=== PATIENT | male | born 1935 | race Caucasian/White ===

== ENCOUNTER → 2017-05-25 | Outpatient (CLI) | payer MEDICARE, OTHER ==
--- NOTE | 2017-05-25 10:06 | CT ---
EXAMINATION TYPE: CT image guided sinus DATE OF EXAM: 05/25/2017 COMPARISON: 11/26/2009 HISTORY: 82-year-old male chronic sinusitis, recurrent sinus infections. Patient complains of recurrent sinus infections. CT DLP: 744.4 mGycm Automated exposure control for dose reduction was used. TECHNIQUE: Noncontrast axial views of the paranasal sinuses were obtained. Coronal reconstructions pe rformed. Imaging performed for image guided sinonasal procedure. FINDINGS: Postsurgical changes of prior FESS, bilateral medial maxillary antrectomies. Mild to moderate mucosal thickening throughout the ethmoid air cells and mild within the bilateral ma xillary sinuses, left sphenoid sinus, and bilateral frontal sinuses. Trace air-fluid levels are seen in the maxillary sinuses. Overall degree of mucosal thickening shows improvement from 2009. There is no destruction of the osseous blanco of the paranasal sinuses. The osteomeatal complexes are patent. Minimal leftward nasal septal deviation. Imaged brain shows no gross abnormality. Post resection changes involving the right mastoid air cells , stable from 2009. Partial opacification left mastoid air cells. Orbits and globes are intact. Reformatted images confirm above findings. IMPRESSION: 1. Evidence of prior bilateral medial maxillary antrectomies. 2. Overall degree of trimble sinus mucosal thickening shows improvement from 2009. Residual moderate muco lynne thickening remains in the ethmoid air cells and mild throughout the remaining paranasal sinuses 3. Small air-fluid levels in the bilateral maxillary sinuses could represent superimposed acute sinus itis. 4. Stable post resection changes involving the right mastoid air cells. There is some trapped fluid i n some of the left mastoid air cells. Correlate for any mastoid pain to exclude mastoiditis.
== END | disposition home or self-care (01) ==
LOC: RADCTMAIN 09:07
PROVIDERS: ATTEND Otolaryngology
DX: J34.89 Other specified disorders of nose and nasal sinuses (principal); J32.9 Chronic sinusitis, unspecified; Z98.890 Other specified postprocedural states
CPT/HCPCS: 70486

== ENCOUNTER 2018-03-01 11:15 | Inpatient (IN) | payer MEDICARE, OTHER ==
--- NOTE | 2018-03-01 12:22 | XR ---
EXAMINATION TYPE: XR chest 2V DATE OF EXAM: 03/01/2018 COMPARISON: NONE HISTORY: Shortness of breath TECHNIQUE: Frontal and lateral views of the chest are obtained. FINDINGS: Scattered senescent parenchymal changes noted. Hyperinflation compatible with COPD. No evidence for infiltrate. No evidence for atelectasis. Heart size is stable. Mediastinal structures are stable and grossly unremarkable. No evidence for hilar prominence. Degenerative changes dorsal spine. IMPRESSION: 1. No evidence for acute pulmonary disease.
[2018-03-01 12:37] LABS: Basophils # (A) 0.1 k/uL (0-0.2); Basophils % (A) 0 %; Eosinophils # (A) 0.2 k/uL (0-0.7); Eosinophils % (A) 2 %; HCT 45.2 % (39.0-53.0); HGB 15.5 gm/dL (13.0-17.5); Lymphocytes # (A) 1.7 k/uL (1.0-4.8); Lymphocytes % (A) 15 %; MCH 30.9 pg (25.0-35.0); MCHC 34.3 g/dL (31.0-37.0); Mean Platelet Volume 8.1; Monocytes # (A) 0.8 k/uL (0-1.0); Monocytes % (A) 7 %; Neutrophils # (A) 8.4 k/uL (1.3-7.7); Neutrophils % (A) 75 %; Platelet Count 222 k/uL (150-450); RBC 5.02 m/uL (4.30-5.90); RDW 13.1 % (11.5-15.5); WBC 11.2 k/uL (3.8-10.6)
[2018-03-01 12:43] LABS: Calcium 9.4 mg/dL (8.4-10.2); INR 1.1 (<1.2); Magnesium 1.9 mg/dL (1.6-2.3); Partial Thromboplastin Time 27.5 sec (22.0-30.0); Potassium 4.7 mmol/L (3.5-5.1); Total Bilirubin 1.1 mg/dL (0.2-1.3); Total Protein 6.4 g/dL (6.3-8.2)
[2018-03-01 13:00] LABS: Creatine Kinase 40 U/L (55-170)
[2018-03-01] MEDS ORDERED: DILTIAZEM DRIP BOLUS FROM BAG 1 MG SOLN IV ONE (13:06)
[2018-03-01 13:12] LABS: Troponin I <0.012 ng/mL (0.000-0.034)
[2018-03-01] MEDS: DILTIAZEM 50 MG in SODIUM CHLORIDE 0.9% 40 ML IV SCH ×2 (13:37→20:44)
--- NOTE | 2018-03-01 14:25 | ED ---
Arrhythmia/Palpitations HPI - General Chief Complaint: Arrhythmia/Palpitations Stated Complaint: A Fib Time Seen by Provider: 03/01/18 11:27 Source: patient, RN/MD, RN notes reviewed Mode of arrival: ambulatory Limitations: no limitations - History of Present Illness Initial Comments: This 83-year-old male who presents from his doctor's office with a diagnosis of atrial fibrillation this is new onset for the patient he denies any chest pain shortness breath fevers chills sweats this was found on examination. No other modifying factors this time he states he's never had this before. MD Complaint: palpitations, irregular heart beat, atrial fibrillation - Related Data Home Medications Medication Instructions Recorded Confirmed Fluticasone/Salmeterol [Advair 1 inhalation PO RT-BID 03/31/15 03/01/18 250-50 Diskus] Levothyroxine Sodium [Synthroid] 50 mcg PO DAILY 03/31/15 03/01/18 Lisinopril-Hctz 20-12.5 mg 0.5 tab PO DAILY 03/31/15 03/01/18 [Zestoretic 20-12.5] Metoprolol Succinate (ER) [Toprol 25 mg PO DAILY 03/31/15 03/01/18 Xl] Montelukast [Singulair] 10 mg PO DAILY 03/31/15 03/01/18 Omeprazole [PriLOSEC] 20 mg PO DAILY 03/31/15 03/01/18 Rivaroxaban [Xarelto] 20 mg PO HS 03/31/15 03/01/18 metFORMIN HCL [Glucophage] 1,000 mg PO HS 03/31/15 03/01/18 Amiodarone HCl [Pacerone] 100 mg PO DAILY 03/01/18 03/01/18 Cholecalciferol [Vitamin D3] 1,000 unit PO DAILY 03/01/18 03/01/18 Multivitamins, Thera [Multivitamin 1 tab PO DAILY 03/01/18 03/01/18 (formulary)] [place]-3 Fatty Acids [[place]-3] 1,000 mg PO DAILY 03/01/18 03/01/18 Opti Florecita 1 tab PO DAILY 03/01/18 03/01/18 Oxybutynin Chloride [Ditropan] 10 mg PO DAILY 03/01/18 03/01/18 Ranitidine HCl [Zantac] 150 mg PO DAILY 03/01/18 03/01/18 Sildenafil Citrate [Viagra] 100 mg PO ONCE PRN 03/01/18 03/01/18 Simvastatin [Zocor] 20 mg PO HS 03/01/18 03/01/18 Tamsulosin HCl [Flomax] 0.4 mg PO HS 03/01/18 03/01/18 sitaGLIPtin [Januvia] 1 tab PO DAILY 03/01/18 03/01/18 Allergies Allergy/AdvReac Type Severity Reaction Status Date / Time No Known Allergies Allergy Verified 03/01/18 12:07 Review of Systems ROS Statement: Those systems with pertinent positive or pertinent negative responses have been documented in the HPI. ROS Other: All systems not noted in ROS Statement are negative. Past Medical History Past Medical History: Atrial Fibrillation, Asthma, Diabetes Mellitus, GERD/ Reflux, Hyperlipidemia, Hypertension, Thyroid Disorder Additional Past Medical History / Comment(s): back pain, cataracts History of Any Multi-Drug Resistant Organisms: None Reported Past Surgical History: Back Surgery, Hernia Repair, Orthopedic Surgery Additional Past Surgical History / Comment(s): mastoidectomy, deviated septum Past Psychological History: No Psychological Hx Reported Smoking Status: Former smoker Past Alcohol Use History: Rare Past Drug Use History: None Reported General Exam - General Exam Comments Initial Comments: This is a well-developed well-nourished awake alert oriented 3 male Limitations: no limitations General appearance: alert, in no apparent distress Head exam: Present: atraumatic, normocephalic, normal inspection Eye exam: Present: normal appearance, PERRL, EOMI. Absent: scleral icterus, conjunctival injection, periorbital swelling ENT exam: Present: normal exam, mucous membranes moist Neck exam: Present: normal inspection. Absent: tenderness, meningismus, lymphadenopathy Respiratory exam: Present: normal lung sounds bilaterally. Absent: respiratory distress, wheezes, rales, rhonchi, stridor Cardiovascular Exam: Present: tachycardia, irregular rhythm. Absent: systolic murmur, diastolic murmur, rubs, gallop, clicks GI/Abdominal exam: Present: soft, normal bowel sounds. Absent: distended, tenderness, guarding, rebound, rigid Extremities exam: Present: normal inspection, full ROM, normal capillary refill. Absent: tenderness, pedal edema, joint swelling, calf tenderness Back exam: Present: normal inspection Neurological exam: Present: alert, oriented X3, CN II-XII intact Psychiatric exam: Present: normal affect, normal mood Skin exam: Present: warm, dry, intact, normal color. Absent: rash Course Vital Signs 03/01/18 03/01/18 03/01/18 11:16 12:30 13:34 Temperature 97.7 F 97.7 F Pulse Rate 75 115 H 114 H Respiratory 18 18 18 Rate Blood Pressure 125/73 103/77 109/71 O2 Sat by Pulse 98 97 97 Oximetry 03/01/18 13:59 Temperature Pulse Rate 108 H Respiratory 18 Rate Blood Pressure 103/76 O2 Sat by Pulse 96 Oximetry - Reevaluation(s) Reevaluation #1: 03/01/18 14:27 evaluation patient reveals no changes. He still in atrial fibrillation. I did discuss the findings have and his patient will be admitted. EKG Findings - EKG Results: EKG: interpreted by ERMD (Atrial fibrillation with a rapid ventricular response rate 129 QRS 96 QT since QTC 310/454 incomplete right bundle-branch block nonspecific ST-T wave configuration) Medical Decision Making - Medical Decision Making I did review the findings with the patient he will be admitted I did discuss the case with Dr. Antoine. Cardiology will be consulted. I did previously discuss the case with Dr. Smith - Lab Data Result diagrams: 03/01/18 11:43 03/01/18 11:43 Lab Results 03/01/18 03/01/18 03/01/18 Range/Units 11:43 11:43 11:43 WBC 11.2 H (3.8-10.6) k/uL RBC 5.02 (4.30-5.90) m/uL Hgb 15.5 (13.0-17.5) gm/dL Hct 45.2 (39.0-53.0) % MCV 90.0 (80.0-100.0) fL MCH 30.9 (25.0-35.0) pg MCHC 34.3 (31.0-37.0) g/dL RDW 13.1 (11.5-15.5) % Plt Count 222 (150-450) k/uL Neutrophils % 75 % Lymphocytes % 15 % Monocytes % 7 % Eosinophils % 2 % Basophils % 0 % Neutrophils # 8.4 H (1.3-7.7) k/uL Lymphocytes # 1.7 (1.0-4.8) k/uL Monocytes # 0.8 (0-1.0) k/uL Eosinophils # 0.2 (0-0.7) k/uL Basophils # 0.1 (0-0.2) k/uL PT (9.0-12.0) sec INR (<1.2) APTT (22.0-30.0) sec Sodium 136 L (137-145) mmol/L Potassium 4.7 (3.5-5.1) mmol/L Chloride 104 (98-107) mmol/L Carbon Dioxide 22 (22-30) mmol/L Anion Gap 10 mmol/L BUN 16 (9-20) mg/dL Creatinine 1.12 (0.66-1.25) mg/dL Est GFR (CKD-EPI)AfAm 71 (>60 ml/min/1.73 sqM) Est GFR (CKD-EPI)NonAf 62 (>60 ml/min/1.73 sqM) Glucose 93 (74-99) mg/dL Calcium 9.4 (8.4-10.2) mg/dL Magnesium 1.9 (1.6-2.3) mg/dL Total Bilirubin 1.1 (0.2-1.3) mg/dL AST 19 (17-59) U/L ALT 32 (21-72) U/L Alkaline Phosphatase 50 (38-126) U/L Total Creatine Kinase 40 L (55-170) U/L CK-MB (CK-2) 1.0 (0.0-2.4) ng/mL CK-MB (CK-2) Rel Index 2.5 Troponin I <0.012 (0.000-0.034) ng/mL Total Protein 6.4 (6.3-8.2) g/dL Albumin 4.0 (3.5-5.0) g/dL TSH 5.810 H (0.465-4.680) mIU/L 03/01/18 Range/Units 11:43 WBC (3.8-10.6) k/uL RBC (4.30-5.90) m/uL Hgb (13.0-17.5) gm/dL Hct (39.0-53.0) % MCV (80.0-100.0) fL MCH (25.0-35.0) pg MCHC (31.0-37.0) g/dL RDW (11.5-15.5) % Plt Count (150-450) k/uL Neutrophils % % Lymphocytes % % Monocytes % % Eosinophils % % Basophils % % Neutrophils # (1.3-7.7) k/uL Lymphocytes # (1.0-4.8) k/uL Monocytes # (0-1.0) k/uL Eosinophils # (0-0.7) k/uL Basophils # (0-0.2) k/uL PT 11.0 (9.0-12.0) sec INR 1.1 (<1.2) APTT 27.5 (22.0-30.0) sec Sodium (137-145) mmol/L Potassium (3.5-5.1) mmol/L Chloride (98-107) mmol/L Carbon Dioxide (22-30) mmol/L Anion Gap mmol/L BUN (9-20) mg/dL Creatinine (0.66-1.25) mg/dL Est GFR (CKD-EPI)AfAm (>60 ml/min/1.73 sqM) Est GFR (CKD-EPI)NonAf (>60 ml/min/1.73 sqM) Glucose (74-99) mg/dL Calcium (8.4-10.2) mg/dL Magnesium (1.6-2.3) mg/dL Total Bilirubin (0.2-1.3) mg/dL AST (17-59) U/L ALT (21-72) U/L Alkaline Phosphatase (38-126) U/L Total Creatine Kinase (55-170) U/L CK-MB (CK-2) (0.0-2.4) ng/mL CK-MB (CK-2) Rel Index Troponin I (0.000-0.034) ng/mL Total Protein (6.3-8.2) g/dL Albumin (3.5-5.0) g/dL TSH (0.465-4.680) mIU/L - Radiology Data Radiology results: report reviewed (Imaging shows no acute findings.), image reviewed Critical Care Time Critical Care Time: Yes Critical Care Time: 31 minutes of critical care time which includes initial presentation with history physical labs x-rays several reevaluation the patient discussion the patient and regarding findings discussed with the admitting physician admission orders and documentation the above Disposition Clinical Impression: Rapid atrial fibrillation Disposition: ADMITTED IP TO THIS HOSP Condition: Stable Referrals: Radha Smith DO [Primary Care Provider] - 1-2 days
[2018-03-01] MEDS ORDERED: NALOXONE 0.4 MG/ML 1 ML VIAL IV PRN (14:30)
--- NOTE | 2018-03-01 15:54 | P.HPIM ---
History of Present Illness H&P Date: 03/01/18 Chief Complaint: Heart palpitations This is a 83-year-old male, patient of Dr. Smith. Patient has a known past medical history of atrial fibrillation anticoagulated with Xarelto. He also has a history of diabetes mellitus, hypothyroidism, hyperlipidemia, hypertension and asthma. Patient reports about 2 weeks ago when he was visiting his son in [place] he had to go into the hospital therefore atrial fibrillation with rapid ventricular response and did undergo a cardioversion at that time. Patient's reports that symptoms started yesterday he was having difficulty calculating his pulse. He reports that he did not miss any medications doses of his amiodarone or Toprol. Patient was sent by his PCP due to atrial fibrillation with rapid ventricular response. EKG in the ER did reveal evidence of atrial fibrillation with a heart rate of 129 and incomplete right bundle branch block. Patient started on Cardizem drip in the ER. They continued the Xarelto 20 mg at bedtime. Cardiology has been placed on consult. He denies any chest pain, shortness of breath, dizziness, lightheadedness, nausea or vomiting, fatigue, fever, chills or sweats. Denies any bowel movement changes or urinary symptoms. Review of Systems Please refer to HPI otherwise unremarkable Past Medical History Past Medical History: Atrial Fibrillation, Asthma, Diabetes Mellitus, GERD/ Reflux, Hyperlipidemia, Hypertension, Pneumonia, Prostate Disorder, Thyroid Disorder Additional Past Medical History / Comment(s): back pain, cataracts(sx done has lens implants), bronchitis,hx of lt wrist fx-no sx just casted.glaucoma lt eye, past stroke behind rt eye stated i can see but i have a blotch in the middle of my vision", past deviated septum and chronic sinusitis-(sx done) History of Any Multi-Drug Resistant Organisms: None Reported Past Surgical History: Adenoidectomy, Back Surgery, Hernia Repair, Orthopedic Surgery, Tonsillectomy Additional Past Surgical History / Comment(s): mastoidectomy rt ear,septoplasty , turp, sandee cataracts-lens implants, colonoscopy, vasectomy, cardiversion (nov when in [place]-for afib), lt thumb trigger finger sx, rt thumb 2nd, 3rd finger trigger finger sx. Past Anesthesia/Blood Transfusion Reactions: No Reported Reaction Past Psychological History: No Psychological Hx Reported Additional Psychological History / Comment(s): lives with .pt is independant served in the [employer], has worked for an [email or web address], [employer], and a [employer] Smoking Status: Former smoker Past Alcohol Use History: Rare Past Drug Use History: None Reported Medications and Allergies Home Medications Medication Instructions Recorded Confirmed Type Fluticasone/Salmeterol [Advair 1 inhalation PO RT-BID 03/31/15 03/01/18 History 250-50 Diskus] Levothyroxine Sodium [Synthroid] 50 mcg PO DAILY 03/31/15 03/01/18 History Lisinopril-Hctz 20-12.5 mg 0.5 tab PO DAILY 03/31/15 03/01/18 History [Zestoretic 20-12.5] Metoprolol Succinate (ER) [Toprol 25 mg PO DAILY 03/31/15 03/01/18 History Xl] Montelukast [Singulair] 10 mg PO DAILY 03/31/15 03/01/18 History Omeprazole [PriLOSEC] 20 mg PO DAILY 03/31/15 03/01/18 History Rivaroxaban [Xarelto] 20 mg PO HS 03/31/15 03/01/18 History metFORMIN HCL [Glucophage] 1,000 mg PO HS 03/31/15 03/01/18 History Amiodarone HCl [Pacerone] 100 mg PO DAILY 03/01/18 03/01/18 History Cholecalciferol [Vitamin D3] 1,000 unit PO DAILY 03/01/18 03/01/18 History Multivitamins, Thera [Multivitamin 1 tab PO DAILY 03/01/18 03/01/18 History (formulary)] [place]-3 Fatty Acids [[place]-3] 1,000 mg PO DAILY 03/01/18 03/01/18 History Opti Florecita 1 tab PO DAILY 03/01/18 03/01/18 History Oxybutynin Chloride [Ditropan] 10 mg PO DAILY 03/01/18 03/01/18 History Ranitidine HCl [Zantac] 150 mg PO DAILY 03/01/18 03/01/18 History Sildenafil Citrate [Viagra] 100 mg PO ONCE PRN 03/01/18 03/01/18 History Simvastatin [Zocor] 20 mg PO HS 03/01/18 03/01/18 History Tamsulosin HCl [Flomax] 0.4 mg PO HS 03/01/18 03/01/18 History sitaGLIPtin [Januvia] 1 tab PO DAILY 03/01/18 03/01/18 History Allergies Allergy/AdvReac Type Severity Reaction Status Date / Time No Known Allergies Allergy Verified 03/01/18 12:07 Physical Exam Vitals: Vital Signs Temp Pulse Resp BP Pulse Ox 03/01/18 15:09 98.3 F 112 H 18 120/76 96 03/01/18 13:59 108 H 18 103/76 96 03/01/18 13:34 97.7 F 114 H 18 109/71 97 03/01/18 12:30 115 H 18 103/77 97 03/01/18 11:16 97.7 F 75 18 125/73 98 Intake and Output 03/01/18 03/01/18 03/01/18 06:59 14:59 22:59 Other: Weight 90.718 kg Head normocephalic Neck supple Lungs clear to auscultation bilaterally no wheezing or crackles Heart irregular. A. fib on monitor Abdomen is soft nontender nondistended positive bowel sounds no hepatosplenomegaly Extremities no edema Neuro alert and orientated to 3 Results CBC & Chem 7: 03/01/18 11:43 03/01/18 11:43 Labs: Abnormal Lab Results - Last 24 Hours (Table) 03/01/18 03/01/18 03/01/18 Range/Units 11:43 11:43 11:43 WBC 11.2 H (3.8-10.6) k/uL Neutrophils # 8.4 H (1.3-7.7) k/uL Sodium 136 L (137-145) mmol/L Total Creatine Kinase 40 L (55-170) U/L TSH 5.810 H (0.465-4.680) mIU/L Assessment and Plan Assessment: 1. Atrial fibrillation with rapid ventricular response present on admission: Patient started on Cardizem drip in ER. Continue Xarelto for anticoagulation. Consult cardiology. Continue telemetry monitoring. Patient's metoprolol and amiodarone were resumed. Patient has a history of atrial fibrillation with recent cardioversion about 2 weeks ago in [place] 2. Hypothyroidism: TSH elevated at 5.810 we'll increase Synthroid from 50 g to 75 g daily 3. Diabetes mellitus type 2: resume metformin and tradjenta. add sliding scale coverage 4. History of mild intermittent asthma. No evidence of exacerbation 5. Essential hypertension 6. GERD continue Pepcid 7. Hyperlipidemia continue statin 8. Leukocytosis possibly reactive. Repeat CBC in a.m. Chest x-ray negative. GI prophylaxis Pepcid and DVT prophylaxis Xarelto Time with Patient: Greater than 30 (Greater than 50% of the total time spent in counseling and coordination of care.I performed an examination of the patient and discussed their management with the physician Heel Seat Filler. I have reviewed the Physician Heel Seat Filler's notes and agree with the documented findings and plan of care)
[2018-03-01 16:54] LABS: Glucose,Whole Blood 184 mg/dL (75-99)
[2018-03-01] MEDS: SODIUM CHLORIDE 0.9% 1,000 ML IV SCH (17:13)
[2018-03-01] MEDS: INSULIN ASPART 100 UNIT/ML 1 ML 10 ML VIAL SQ SCH ×2 (17:37→21:04)
[2018-03-01] MEDS ORDERED: INFLUENZA VACCINE (6 MOS+) 60 MCG/0.5 ML SYRINGE IM ONE (18:37)
[2018-03-01] MEDS: SYMBICORT 80-4.5 MCG INHALER INHALATION SCH (20:35)
[2018-03-01] MEDS: ATORVASTATIN 10 MG TAB PO SCH (20:38)
[2018-03-01] MEDS: metFORMIN 500 MG TAB PO SCH (20:38)
[2018-03-01] MEDS: TAMSULOSIN 0.4 MG CAP.ER.24H PO SCH (20:38)
[2018-03-01] MEDS: RIVAROXABAN 20 MG TAB PO SCH (21:04)
[2018-03-01 21:26] LABS: Glucose,Whole Blood 141 mg/dL (75-99)
[2018-03-02 06:03] LABS: Glucose,Whole Blood 117 mg/dL (75-99)
[2018-03-02] MEDS: INSULIN ASPART 100 UNIT/ML 1 ML 10 ML VIAL SQ SCH ×4 (06:12→20:41)
[2018-03-02] MEDS: PANTOPRAZOLE 40 MG TABLET PO SCH (06:17)
[2018-03-02] MEDS: LEVOTHYROXINE 75 MCG TAB PO SCH (06:17)
[2018-03-02] MEDS: DILTIAZEM 50 MG in SODIUM CHLORIDE 0.9% 40 ML IV SCH ×2 (06:18→16:20)
[2018-03-02] MEDS ORDERED: LEVOTHYROXINE 50 MCG TAB PO SCH (06:30)
[2018-03-02 06:32] LABS: Basophils # (A) 0.1 k/uL (0-0.2); Basophils % (A) 1 %; Eosinophils # (A) 0.2 k/uL (0-0.7); Eosinophils % (A) 2 %; HCT 39.3 % (39.0-53.0); HGB 13.1 gm/dL (13.0-17.5); Lymphocytes # (A) 1.8 k/uL (1.0-4.8); Lymphocytes % (A) 24 %; MCH 30.3 pg (25.0-35.0); MCHC 33.3 g/dL (31.0-37.0); MCV 91.2 fL (80.0-100.0); Mean Platelet Volume 7.6; Monocytes # (A) 0.6 k/uL (0-1.0); Monocytes % (A) 8 %; Neutrophils # (A) 4.8 k/uL (1.3-7.7); Neutrophils % (A) 64 %; Platelet Count 191 k/uL (150-450); RBC 4.31 m/uL (4.30-5.90); RDW 13.2 % (11.5-15.5); WBC 7.5 k/uL (3.8-10.6)
[2018-03-02 06:44] LABS: Calcium 8.5 mg/dL (8.4-10.2); Potassium 4.2 mmol/L (3.5-5.1); Total Protein 5.2 g/dL (6.3-8.2)
[2018-03-02] MEDS: CHOLECALCIFEROL 1,000 UNIT TAB PO SCH (08:32)
[2018-03-02] MEDS: AMIODARONE 100 MG TAB PO SCH (08:32)
[2018-03-02] MEDS: FAMOTIDINE 20 MG TAB PO SCH (08:32)
[2018-03-02] MEDS: METOPROLOL SUCCINATE (ER) 25 MG TAB.ER.24H PO SCH (08:33)
[2018-03-02] MEDS: LINAGLIPTIN 5 MG TABLET PO SCH (08:33)
[2018-03-02] MEDS: LISINOPRIL-HCTZ 20-12.5 MG 1 EACH TAB PO SCH (08:33)
[2018-03-02] MEDS: OXYBUTYNIN CHLORIDE 5 MG TAB PO SCH (08:34)
[2018-03-02] MEDS: MONTELUKAST 10 MG TAB PO SCH (08:34)
[2018-03-02] MEDS: MULTIVITAMINS, THERA 1 EACH TAB PO SCH (08:34)
[2018-03-02] MEDS ORDERED: NON-FORMULARY DRUG (Omega-3 Fatty Acids [Omega-3] 1,000 MG) PO SCH (09:00)
[2018-03-02] MEDS: SYMBICORT 80-4.5 MCG INHALER INHALATION SCH ×2 (09:05→20:38)
--- NOTE | 2018-03-02 10:39 | P.PN ---
Subjective Progress Note Date: 03/02/18 This is a 83-year-old male, patient of Dr. Smith. Patient has a known past medical history of atrial fibrillation anticoagulated with Xarelto. He also has a history of diabetes mellitus, hypothyroidism, hyperlipidemia, hypertension and asthma. Patient reports about 2 weeks ago when he was visiting his son in [place] he had to go into the hospital therefore atrial fibrillation with rapid ventricular response and did undergo a cardioversion at that time. Patient's reports that symptoms started yesterday he was having difficulty calculating his pulse. He reports that he did not miss any medications doses of his amiodarone or Toprol. Patient was sent by his PCP due to atrial fibrillation with rapid ventricular response. EKG in the ER did reveal evidence of atrial fibrillation with a heart rate of 129 and incomplete right bundle branch block. Patient started on Cardizem drip in the ER. They continued the Xarelto 20 mg at bedtime. Cardiology has been placed on consult. He denies any chest pain, shortness of breath, dizziness, lightheadedness, nausea or vomiting, fatigue, fever, chills or sweats. Denies any bowel movement changes or urinary symptoms. On 03/02/2018 patient is currently resting comfortably in bed. is at bedside. Patient remains on Cardizem drip. Heart rate remains elevated in the low 100s. Cardiology services are following. At this time patient denies chest pain or shortness of breath. Patient denies nausea vomiting or diarrhea. Patient denies any urinary burning or frequency. Objective - Vital Signs Vital signs: Vital Signs Temp 98.0 F 03/02/18 08:25 Pulse 101 H 03/02/18 08:25 Resp 16 03/02/18 08:25 BP 121/62 03/02/18 08:25 Pulse Ox 96 03/02/18 08:25 Intake & Output 03/01/18 03/02/18 03/02/18 18:59 06:59 18:59 Intake Total 25 83.416 240 Output Total 900 Balance 25 -816.584 240 Weight 90.718 kg 91.4 kg Intake: Intake, IV Titration 25 83.416 Amount Diltiazem 50 mg In Sodium 5 83.416 Chloride 0.9% 40 ml @ 5 MG/HR 5 mls/hr IV .Q10H [facility] Rx#:[id number] Sodium Chloride 0.9% 1, 20 000 ml @ 20 mls/hr IV . Q24H [facility] Rx#:[id number] Oral 240 Output: Urine 900 Other: Voiding Method Urinal # Voids 1 - Exam Head normocephalic Neck supple Lungs clear to auscultation bilaterally no wheezing or crackles Heart irregular. A. fib on monitor Abdomen is soft nontender nondistended positive bowel sounds no hepatosplenomegaly Extremities no edema Neuro alert and orientated to 3 - Labs CBC & Chem 7: 03/02/18 06:10 03/02/18 06:10 Labs: Abnormal Lab Results - Last 24 Hours (Table) 03/01/18 03/01/18 03/01/18 Range/Units 11:43 11:43 11:43 WBC 11.2 H (3.8-10.6) k/uL Neutrophils # 8.4 H (1.3-7.7) k/uL Sodium 136 L (137-145) mmol/L Glucose (74-99) mg/dL POC Glucose (mg/dL) (75-99) mg/dL AST (17-59) U/L Total Creatine Kinase 40 L (55-170) U/L Total Protein (6.3-8.2) g/dL Albumin (3.5-5.0) g/dL TSH 5.810 H (0.465-4.680) mIU/L 03/01/18 03/01/18 03/02/18 Range/Units 16:35 20:58 06:02 WBC (3.8-10.6) k/uL Neutrophils # (1.3-7.7) k/uL Sodium (137-145) mmol/L Glucose (74-99) mg/dL POC Glucose (mg/dL) 184 H 141 H 117 H (75-99) mg/dL AST (17-59) U/L Total Creatine Kinase (55-170) U/L Total Protein (6.3-8.2) g/dL Albumin (3.5-5.0) g/dL TSH (0.465-4.680) mIU/L 03/02/18 Range/Units 06:10 WBC (3.8-10.6) k/uL Neutrophils # (1.3-7.7) k/uL Sodium (137-145) mmol/L Glucose 122 H (74-99) mg/dL POC Glucose (mg/dL) (75-99) mg/dL AST 14 L (17-59) U/L Total Creatine Kinase (55-170) U/L Total Protein 5.2 L (6.3-8.2) g/dL Albumin 3.0 L (3.5-5.0) g/dL TSH (0.465-4.680) mIU/L Assessment and Plan Assessment: 1. Atrial fibrillation with rapid ventricular response present on admission: Patient started on Cardizem drip in ER. Continue Xarelto for anticoagulation. Consult cardiology. Continue telemetry monitoring. Patient's metoprolol and amiodarone were resumed. Patient has a history of atrial fibrillation with recent cardioversion about 2 weeks ago in [place]. Awaiting cardiology input. Patient remains on Cardizem drip for rate control at this time 2. Hypothyroidism: TSH elevated at 5.810 we'll increase Synthroid from 50 g to 75 g daily 3. Diabetes mellitus type 2: resume metformin and tradjenta. add sliding scale coverage 4. History of mild intermittent asthma. No evidence of exacerbation 5. Essential hypertension 6. GERD continue Pepcid 7. Hyperlipidemia continue statin 8. Leukocytosis possibly reactive. Repeat CBC in a.m. Chest x-ray negative. White blood cell improving to 7.5. GI prophylaxis Pepcid and DVT prophylaxis Xarelto I performed an examination of the patient and discussed their management with the Nurse Practitioner. I have reviewed the Nurse Practitioner's notes and agree with the documented findings and plan of care
--- NOTE | 2018-03-02 11:20 | P.CRDCN ---
History of Present Illness Consult date: 03/02/18 Requesting physician: Hyun Antoine Consult reason: atrial fibrillation Chief complaint: Palpitations, atrial fibrillation History of present illness: This is a pleasant 83-year-old gentleman with history of hypertension , diabetes, hyperlipidemia, hypothyroidism, paroxysmal atrial fibrillation, who was first diagnosed with A. fib approximately 5 years ago, he was in [place] at that time. He has had 2 subsequent bouts of atrial fibrillation, one time converted with medication, and most recently the patient was in [place] and [place] in January, while in [place] he went into atrial fibrillation with rapid ventricular response. According to the patient, they gave him some medication to try to convert him which was ineffective and subsequently he underwent cardioversion. He has remained in normal sinus rhythm until this time. Patient again felt symptoms of heart racing and palpitations, he went to see his primary care doctor and was recommended to come to the emergency room. EKG on arrival here showed atrial fibrillation with a rapid ventricular response , incomplete right bundle branch block pattern and nonspecific ST-T wave changes. Chest x-ray did not reveal any acute pulmonary disease. Blood pressure on arrival 125/70, heart rate in the low 100s. 98% on room air. Blood pressure this morning 120/60 with a heart rate in the low 100s, 96% on room air. White blood cell count 11.2 on arrival, 7.5 this morning, hemoglobin 13.1 this morning, 15.5 on admission. Platelet count 191. Sodium 137, potassium 4.2, BUN 13, creatinine 1.1. Magnesium 1.9. AST 40, ALT 30. Troponin 0.012. According to the patient, he did have an echocardiogram with Doppler study performed at [facility] yesterday. At the time of my examination this morning, the patient continues to be in atrial fibrillation his heart rate in the low 100s. He is currently on a Cardizem drip. Past Medical History Past Medical History: Atrial Fibrillation, Asthma, Diabetes Mellitus, GERD/ Reflux, Hyperlipidemia, Hypertension, Pneumonia, Prostate Disorder, Thyroid Disorder Additional Past Medical History / Comment(s): back pain, cataracts(sx done has lens implants), bronchitis,hx of lt wrist fx-no sx just casted.glaucoma lt eye, past stroke behind rt eye stated i can see but i have a blotch in the middle of my vision", past deviated septum and chronic sinusitis-(sx done) History of Any Multi-Drug Resistant Organisms: None Reported Past Surgical History: Adenoidectomy, Back Surgery, Hernia Repair, Orthopedic Surgery, Tonsillectomy Additional Past Surgical History / Comment(s): mastoidectomy rt ear,septoplasty , turp, sandee cataracts-lens implants, colonoscopy, vasectomy, cardiversion (nov when in [place]-for afib), lt thumb trigger finger sx, rt thumb 2nd, 3rd finger trigger finger sx. Past Anesthesia/Blood Transfusion Reactions: No Reported Reaction Past Psychological History: No Psychological Hx Reported Additional Psychological History / Comment(s): lives with .pt is independant served in the [employer], has worked for [employer], [employer], and a [employer] Smoking Status: Former smoker Past Alcohol Use History: Rare Past Drug Use History: None Reported Medications and Allergies Home Medications Medication Instructions Recorded Confirmed Type Fluticasone/Salmeterol [Advair 1 inhalation PO RT-BID 03/31/15 03/01/18 History 250-50 Diskus] Levothyroxine Sodium [Synthroid] 50 mcg PO DAILY 03/31/15 03/01/18 History Lisinopril-Hctz 20-12.5 mg 0.5 tab PO DAILY 03/31/15 03/01/18 History [Zestoretic 20-12.5] Metoprolol Succinate (ER) [Toprol 25 mg PO DAILY 03/31/15 03/01/18 History Xl] Montelukast [Singulair] 10 mg PO DAILY 03/31/15 03/01/18 History Omeprazole [PriLOSEC] 20 mg PO DAILY 03/31/15 03/01/18 History Rivaroxaban [Xarelto] 20 mg PO HS 03/31/15 03/01/18 History metFORMIN HCL [Glucophage] 1,000 mg PO HS 03/31/15 03/01/18 History Amiodarone HCl [Pacerone] 100 mg PO DAILY 03/01/18 03/01/18 History Cholecalciferol [Vitamin D3] 1,000 unit PO DAILY 03/01/18 03/01/18 History Multivitamins, Thera [Multivitamin 1 tab PO DAILY 03/01/18 03/01/18 History (formulary)] Nelson-3 Fatty Acids [Nelson-3] 1,000 mg PO DAILY 03/01/18 03/01/18 History Opti Florecita 1 tab PO DAILY 03/01/18 03/01/18 History Oxybutynin Chloride [Ditropan] 10 mg PO DAILY 03/01/18 03/01/18 History Ranitidine HCl [Zantac] 150 mg PO DAILY 03/01/18 03/01/18 History Sildenafil Citrate [Viagra] 100 mg PO ONCE PRN 03/01/18 03/01/18 History Simvastatin [Zocor] 20 mg PO HS 03/01/18 03/01/18 History Tamsulosin HCl [Flomax] 0.4 mg PO HS 03/01/18 03/01/18 History sitaGLIPtin [Januvia] 1 tab PO DAILY 03/01/18 03/01/18 History Allergies Allergy/AdvReac Type Severity Reaction Status Date / Time No Known Allergies Allergy Verified 03/01/18 12:07 Physical Exam Vitals: Vital Signs Temp Pulse Pulse Resp BP BP Pulse Ox 03/02/18 08:25 98.0 F 101 H 16 121/62 96 03/02/18 03:16 104 H 16 03/02/18 03:15 97.4 F L 104 H 16 105/65 95 03/01/18 23:52 102 H 16 03/01/18 23:50 97.0 F L 102 H 16 103/65 97 03/01/18 20:00 97.3 F L 83 18 141/71 96 03/01/18 16:00 118 H 18 03/01/18 15:10 96.8 F L 118 H 18 116/73 95 03/01/18 15:09 98.3 F 112 H 18 120/76 96 03/01/18 13:59 108 H 18 103/76 96 03/01/18 13:34 97.7 F 114 H 18 109/71 97 03/01/18 12:30 115 H 18 103/77 97 03/01/18 11:16 97.7 F 75 18 125/73 98 Intake and Output 03/01/18 03/02/18 03/02/18 22:59 06:59 14:59 Intake Total 60.583 47.833 240 Output Total 900 Balance 60.583 -852.167 240 Intake: Intake, IV Titration 60.583 47.833 Amount Diltiazem 50 mg In Sodium 40.583 47.833 Chloride 0.9% 40 ml @ 5 MG/HR 5 mls/hr IV .Q10H [facility] Rx#:[id number] Sodium Chloride 0.9% 1, 20 000 ml @ 20 mls/hr IV . Q24H [facility] Rx#:[id number] Oral 240 Output: Urine 900 Other: Voiding Method Urinal Urinal # Voids 1 Weight 91.4 kg PHYSICAL EXAMINATION: GENERAL: 83-year-old gentleman in no acute distress at time of my examination HEENT: Head is atraumatic, normocephalic. Pupils equal, round. Sclera anicteric. Conjunctiva are clear. Mucous membranes of the mouth are moist. Neck is supple. There is no elevated jugular venous pressure. No carotid bruit is heard. HEART EXAMINATION: Heart S1 and S2 irregularly irregular a systolic murmur is heard. CHEST EXAMINATION: Lungs are clear to auscultation and precussion. No chest wall tenderness is noted on palpation or with deep breathing. ABDOMEN: Soft, nontender. Bowel sounds are heard. No organomegaly noted. EXTREMITIES: 2+ peripheral pulses with no evidence of peripheral edema and no calf tenderness noted. NEUROLOGIC patient is awake, alert and oriented X3. . Results 03/02/18 06:10 03/02/18 06:10 Cardiac Enzymes 03/01/18 03/01/18 03/02/18 Range/Units 11:43 11:43 06:10 AST 19 14 L (17-59) U/L CK-MB (CK-2) 1.0 (0.0-2.4) ng/mL Troponin I <0.012 (0.000-0.034) ng/mL Coagulation 03/01/18 Range/Units 11:43 PT 11.0 (9.0-12.0) sec APTT 27.5 (22.0-30.0) sec CBC 03/01/18 03/02/18 Range/Units 11:43 06:10 WBC 11.2 H 7.5 (3.8-10.6) k/uL RBC 5.02 4.31 (4.30-5.90) m/uL Hgb 15.5 13.1 (13.0-17.5) gm/dL Hct 45.2 39.3 (39.0-53.0) % Plt Count 222 191 (150-450) k/uL Comprehensive Metabolic Panel 03/01/18 03/02/18 Range/Units 11:43 06:10 Sodium 136 L 137 (137-145) mmol/L Potassium 4.7 4.2 (3.5-5.1) mmol/L Chloride 104 107 (98-107) mmol/L Carbon Dioxide 22 24 (22-30) mmol/L BUN 16 13 (9-20) mg/dL Creatinine 1.12 1.14 (0.66-1.25) mg/dL Glucose 93 122 H (74-99) mg/dL Calcium 9.4 8.5 (8.4-10.2) mg/dL AST 19 14 L (17-59) U/L ALT 32 30 (21-72) U/L Alkaline Phosphatase 50 41 (38-126) U/L Total Protein 6.4 5.2 L (6.3-8.2) g/dL Albumin 4.0 3.0 L (3.5-5.0) g/dL Current Medications Generic Name Dose Route Start Last Admin Trade Name Freq PRN Reason Stop Dose Admin Amiodarone HCl 100 mg 03/02/18 09:00 03/02/18 08:32 Cordarone PO 100 mg DAILY [facility]I Administration Atorvastatin Calcium 10 mg 03/01/18 21:00 03/01/18 20:38 Lipitor PO 10 mg HS [facility]I Administration Budesonide/Formoterol Fumarate 2 puff 03/01/18 20:00 03/02/18 09:05 Symbicort 80-4.5 Mcg Inhaler INHALATION 2 puff RT-BID [facility]I Administration Cholecalciferol 1,000 unit 03/02/18 09:00 03/02/18 08:32 Vitamin D3 PO 1,000 unit DAILY [facility] Administration Famotidine 20 mg 03/02/18 09:00 03/02/18 08:32 Pepcid PO 20 mg DAILY [facility] Administration Lisinopril/HCTZ 0.5 each 03/02/18 09:00 03/02/18 08:33 Zestoretic 20-12.5 PO 0.5 each DAILY [facility]I Administration Diltiazem HCl 50 mg/ Sodium 50 mls @ 5 mls/hr 03/01/18 13:30 03/02/18 06:18 Chloride IV 5 mg/hr .Q10H [facility]I 5 mls/hr Administration 5 MG/HR Sodium Chloride 1,000 mls @ 20 mls/hr 03/01/18 14:30 03/01/18 17:13 Saline 0.9% IV Not Given .Q24H [facility] Insulin Aspart 0 unit 03/01/18 17:30 03/02/18 06:12 Novolog SQ Not Given ACHS [facility] Protocol Levothyroxine Sodium 75 mcg 03/02/18 06:30 03/02/18 06:17 Synthroid PO 75 mcg 0630 [facility] Administration Linagliptin 5 mg 03/02/18 09:00 03/02/18 08:33 Tradjenta PO 5 mg DAILY [facility] Administration Metformin HCl 1,000 mg 03/01/18 21:00 03/01/18 20:38 Glucophage PO 1,000 mg HS [facility] Administration Metoprolol Succinate 25 mg 03/02/18 09:00 03/02/18 08:33 Toprol Xl PO 25 mg DAILY [facility] Administration Montelukast Sodium 10 mg 03/02/18 09:00 03/02/18 08:34 Singulair PO 10 mg DAILY [facility] Administration Multivitamins 1 each 03/02/18 09:00 03/02/18 08:34 Theragran PO 1 each DAILY [facility]I Administration Naloxone HCl 0.2 mg 03/01/18 14:30 Narcan IV Q2M PRN Opioid Reversal Oxybutynin Chloride 10 mg 03/02/18 09:00 03/02/18 08:34 Ditropan PO 10 mg DAILY [facility]I Administration Pantoprazole Sodium 40 mg 03/02/18 07:30 03/02/18 06:17 Protonix PO 40 mg AC-[id number] [facility]I Administration Rivaroxaban 20 mg 03/01/18 21:00 03/01/18 21:04 Xarelto PO 20 mg HS [facility]I Administration Tamsulosin HCl 0.4 mg 03/01/18 21:00 03/01/18 20:38 Flomax PO 0.4 mg HS [facility]I Administration Intake and Output 03/01/18 03/02/18 03/02/18 22:59 06:59 14:59 Intake Total 60.583 47.833 240 Output Total 900 Balance 60.583 -852.167 240 Intake: Intake, IV Titration 60.583 47.833 Amount Diltiazem 50 mg In Sodium 40.583 47.833 Chloride 0.9% 40 ml @ 5 MG/HR 5 mls/hr IV .Q10H [facility] Rx#:[id number] Sodium Chloride 0.9% 1, 20 000 ml @ 20 mls/hr IV . Q24H [facility] Rx#:[id number] Oral 240 Output: Urine 900 Other: Voiding Method Urinal Urinal # Voids 1 Weight 91.4 kg 03/02/18 06:10 03/02/18 06:10 EKG Interpretations (text) EKG shows atrial fibrillation with moderately rapid ventricular response. Assessment and Plan Plan: Assessment and plan #1 atrial fibrillation with rapid ventricular response, paroxysmal, patient has known history of paroxysmal atrial fibrillation in the past., TSH level V.8 #2 diabetes #3 hypertension #4 hyperlipidemia #5 GERD #6 hypothyroidism Plan We will obtain an echocardiogram with Doppler study. Continue Xarelto 20 mg daily. We will request a consultation with Dr. Perrin, possible Tykosin loading. Further recommendations to follow. DNP note has been reviewed, I agree with a documented findings and plan of care. Patient was seen and examined.
[2018-03-02 11:42] LABS: Glucose,Whole Blood 123 mg/dL (75-99)
[2018-03-02 14:07] LABS: Hemoglobin A1C 7.5 % (4.0-6.0)
--- NOTE | 2018-03-02 15:02 | ECHOF ---
Referral Reason:afib MEASUREMENTS -------- HEIGHT: 180.3 cm WEIGHT: 91.2 kg BP: 121/62 RVIDd: 3.4 cm (< 3.3) IVSd: 1.5 cm (0.6 - 1.1) LVIDd: 3.7 cm (3.9 - 5.3) LVPWd: 1.5 cm (0.6 - 1.1) IVSs: 2.0 cm LVIDs: 2.6 cm LVPWs: 1.8 cm LA Diam: 3.7 cm (2.7 - 3.8) LAESV Index (A-L): 37.93 ml/m Ao Diam: 3.8 cm (2.0 - 3.7) AV Cusp: 1.6 cm (1.5 - 2.6) MV EXCURSION: 19.089 mm (> 18.000) MV EF SLOPE: 66 mm/s (70 - 150) EPSS: 0.5 cm AV maxP.78 mmHg AV meanP.73 mmHg RAP: 5.00 mmHg RVSP: 28.31 mmHg FINDINGS -------- Atrial fibrillation. This was a technically difficult study with suboptimal views. The left ventricular size is normal. There is moderate concentric left ventricular hypertrophy. O verall left ventricular systolic function is normal with, an EF between 55 - 60 %. The right ventricle is mildly enlarged. LA is moderately dilated 34-39 ml/m2 The right atrium is normal in size. 4 ml of Lumason was utilized for enhancement of images. There is mild to moderate aortic valve sclerosis. There is mild aortic stenosis present. Peak/yassine n gradient across the Aortic Valve is 22.78mmHg / 11.73mmHg. Moderate mitral annular calcification present. Mild mitral regurgitation is present. Mild tricuspid regurgitation present. Right ventricular systolic pressure is normal at < 35 mmHg. The right ventricular systolic pressure, as measured by Doppler, is 28.31mmHg. Trace/mild (physiologic) pulmonic regurgitation. The aortic root is dilated measuring 3.8cm. IVC Not well visulized. There is no pericardial effusion. CONCLUSIONS -------- 1. Atrial fibrillation. 2. This was a technically difficult study with suboptimal views. 3. The left ventricular size is normal. 4. There is moderate concentric left ventricular hypertrophy. 5. Overall left ventricular systolic function is normal with, an EF between 55 - 60 %. 6. The right ventricle is mildly enlarged. 7. LA is moderately dilated 34-39 ml/m2 8. 4 ml of Lumason was utilized for enhancement of images. 9. There is mild to moderate aortic valve sclerosis. 10. There is mild aortic stenosis present. 11. Peak/mean gradient across the Aortic Valve is 22.78mmHg / 11.73mmHg. 12. Moderate mitral annular calcification present. 13. Mild mitral regurgitation is present. 14. Mild tricuspid regurgitation present. 15. Right ventricular systolic pressure is normal at < 35 mmHg. 16. Trace/mild (physiologic) pulmonic regurgitation. 17. The aortic root is dilated measuring 3.8cm. 18. IVC Not well visulized. 19. There is no pericardial effusion. CLINICAL PHARMACY TECHNICIAN: Aissatou Pino RDCS
[2018-03-02] MEDS: SODIUM CHLORIDE 0.9% 1,000 ML IV SCH (16:21)
[2018-03-02 16:55] LABS: Glucose,Whole Blood 166 mg/dL (75-99)
[2018-03-02] MEDS: ATORVASTATIN 10 MG TAB PO SCH (19:34)
[2018-03-02] MEDS: TAMSULOSIN 0.4 MG CAP.ER.24H PO SCH (19:34)
[2018-03-02] MEDS: metFORMIN 500 MG TAB PO SCH (19:34)
[2018-03-02 20:32] LABS: Glucose,Whole Blood 164 mg/dL (75-99)
[2018-03-02] MEDS: RIVAROXABAN 20 MG TAB PO SCH (20:41)
[2018-03-03 05:57] LABS: Glucose,Whole Blood 116 mg/dL (75-99)
[2018-03-03] MEDS: INSULIN ASPART 100 UNIT/ML 1 ML 10 ML VIAL SQ SCH ×4 (05:58→20:51)
[2018-03-03] MEDS: PANTOPRAZOLE 40 MG TABLET PO SCH (06:27)
[2018-03-03] MEDS: LEVOTHYROXINE 75 MCG TAB PO SCH (06:27)
[2018-03-03 07:15] LABS: Basophils # (A) 0.1 k/uL (0-0.2); Basophils % (A) 1 %; Eosinophils # (A) 0.2 k/uL (0-0.7); Eosinophils % (A) 3 %; HCT 38.2 % (39.0-53.0); HGB 12.7 gm/dL (13.0-17.5); Lymphocytes # (A) 1.4 k/uL (1.0-4.8); Lymphocytes % (A) 21 %; MCH 30.6 pg (25.0-35.0); MCHC 33.3 g/dL (31.0-37.0); MCV 91.9 fL (80.0-100.0); Mean Platelet Volume 7.3; Monocytes # (A) 0.4 k/uL (0-1.0); Monocytes % (A) 6 %; Neutrophils # (A) 4.4 k/uL (1.3-7.7); Neutrophils % (A) 68 %; Platelet Count 190 k/uL (150-450); RBC 4.16 m/uL (4.30-5.90); RDW 13.2 % (11.5-15.5); WBC 6.4 k/uL (3.8-10.6)
[2018-03-03 07:26] LABS: Calcium 8.5 mg/dL (8.4-10.2); Potassium 3.9 mmol/L (3.5-5.1); Total Bilirubin 0.8 mg/dL (0.2-1.3); Total Protein 5.3 g/dL (6.3-8.2)
[2018-03-03] MEDS: SYMBICORT 80-4.5 MCG INHALER INHALATION SCH ×2 (09:25→20:30)
[2018-03-03] MEDS: FAMOTIDINE 20 MG TAB PO SCH (09:57)
[2018-03-03] MEDS: LINAGLIPTIN 5 MG TABLET PO SCH (09:57)
[2018-03-03] MEDS: CHOLECALCIFEROL 1,000 UNIT TAB PO SCH (09:57)
[2018-03-03] MEDS: MULTIVITAMINS, THERA 1 EACH TAB PO SCH (09:57)
[2018-03-03] MEDS: MONTELUKAST 10 MG TAB PO SCH (09:57)
[2018-03-03] MEDS: LISINOPRIL-HCTZ 20-12.5 MG 1 EACH TAB PO SCH (09:57)
[2018-03-03] MEDS: METOPROLOL SUCCINATE (ER) 25 MG TAB.ER.24H PO SCH (09:57)
[2018-03-03] MEDS: OXYBUTYNIN CHLORIDE 5 MG TAB PO SCH (09:57)
[2018-03-03] MEDS: AMIODARONE 100 MG TAB PO SCH (09:58)
[2018-03-03 11:49] LABS: Glucose,Whole Blood 148 mg/dL (75-99)
[2018-03-03] MEDS: DILTIAZEM 50 MG in SODIUM CHLORIDE 0.9% 40 ML IV SCH (11:50)
--- NOTE | 2018-03-03 12:33 | P.PN ---
Subjective Progress Note Date: 03/03/18 This is a 83-year-old male, patient of Dr. Smith. Patient has a known past medical history of atrial fibrillation anticoagulated with Xarelto. He also has a history of diabetes mellitus, hypothyroidism, hyperlipidemia, hypertension and asthma. Patient reports about 2 weeks ago when he was visiting his son in [place] he had to go into the hospital therefore atrial fibrillation with rapid ventricular response and did undergo a cardioversion at that time. Patient's reports that symptoms started yesterday he was having difficulty calculating his pulse. He reports that he did not miss any medications doses of his amiodarone or Toprol. Patient was sent by his PCP due to atrial fibrillation with rapid ventricular response. EKG in the ER did reveal evidence of atrial fibrillation with a heart rate of 129 and incomplete right bundle branch block. Patient started on Cardizem drip in the ER. They continued the Xarelto 20 mg at bedtime. Cardiology has been placed on consult. He denies any chest pain, shortness of breath, dizziness, lightheadedness, nausea or vomiting, fatigue, fever, chills or sweats. Denies any bowel movement changes or urinary symptoms. On 03/02/2018 patient is currently resting comfortably in bed. is at bedside. Patient remains on Cardizem drip. Heart rate remains elevated in the low 100s. Cardiology services are following. At this time patient denies chest pain or shortness of breath. Patient denies nausea vomiting or diarrhea. Patient denies any urinary burning or frequency. 03/03/2018 patient lying in bed comfortably. Heart rate reaches into the 130s with ambulating. Patient does remain in atrial fibrillation. Echo shows an EF of 55-60% with mild aortic stenosis, mild mitral regurgitation and tricuspid regurgitation. Patient remains on a Cardizem drip. Awaiting Dr. Perrin's evaluation. Patient denies any chest pain or shortness of breath. Denies any heart palpitations. Denies any nausea or vomiting. Reports having bowel movements. Denies any difficulty urinating. Objective - Vital Signs Vital signs: Vital Signs Temp 98.3 F 03/03/18 08:40 Pulse 73 03/03/18 08:40 Resp 16 03/03/18 08:40 BP 127/78 03/03/18 08:40 Pulse Ox 98 03/03/18 08:40 Intake & Output 03/02/18 03/03/18 03/03/18 18:59 06:59 18:59 Intake Total 530 210 480 Output Total 1000 500 Balance -470 -290 480 Weight 88.8 kg Intake: Intake, IV Titration 50 210 Amount Diltiazem 50 mg In Sodium 50 50 Chloride 0.9% 40 ml @ 5 MG/HR 5 mls/hr IV .Q10H [facility] Rx#:[id number] Sodium Chloride 0.9% 1, 160 000 ml @ 20 mls/hr IV . Q24H [facility] Rx#:[id number] Oral 480 480 Output: Urine 1000 500 Other: Voiding Method Urinal # Voids 1 # Bowel Movements 1 - Exam Head normocephalic Neck supple Lungs clear to auscultation bilaterally no wheezing or crackles Heart irregular. A. fib on monitor Abdomen is soft nontender nondistended positive bowel sounds no hepatosplenomegaly Extremities no edema Neuro alert and orientated to 3 - Labs CBC & Chem 7: 03/03/18 06:28 03/03/18 06:28 Labs: Abnormal Lab Results - Last 24 Hours (Table) 03/01/18 03/02/18 03/02/18 Range/Units 15:43 16:44 20:29 RBC (4.30-5.90) m/uL Hgb (13.0-17.5) gm/dL Hct (39.0-53.0) % Glucose (74-99) mg/dL POC Glucose (mg/dL) 166 H 164 H (75-99) mg/dL Hemoglobin A1c 7.5 H (4.0-6.0) % AST (17-59) U/L Total Protein (6.3-8.2) g/dL Albumin (3.5-5.0) g/dL 03/03/18 03/03/18 03/03/18 Range/Units 05:54 06:28 06:28 RBC 4.16 L (4.30-5.90) m/uL Hgb 12.7 L (13.0-17.5) gm/dL Hct 38.2 L (39.0-53.0) % Glucose 111 H (74-99) mg/dL POC Glucose (mg/dL) 116 H (75-99) mg/dL Hemoglobin A1c (4.0-6.0) % AST 15 L (17-59) U/L Total Protein 5.3 L (6.3-8.2) g/dL Albumin 3.0 L (3.5-5.0) g/dL 03/03/18 Range/Units 11:29 RBC (4.30-5.90) m/uL Hgb (13.0-17.5) gm/dL Hct (39.0-53.0) % Glucose (74-99) mg/dL POC Glucose (mg/dL) 148 H (75-99) mg/dL Hemoglobin A1c (4.0-6.0) % AST (17-59) U/L Total Protein (6.3-8.2) g/dL Albumin (3.5-5.0) g/dL Assessment and Plan Assessment: 1. Atrial fibrillation with rapid ventricular response present on admission: Patient remains in atrial fibrillation on monitor. Currently on a Cardizem drip. Awaiting evaluation by Dr. Perrin. Patient is also on amiodarone 100 mg daily metoprolol 25 mg daily and Xarelto for anticoagulation. Patient has a history of paroxysmal atrial fibrillation with recent cardioversion about 2 weeks ago in [place] 2. Hypothyroidism: TSH elevated at 5.810 we'll increase Synthroid from 50 g to 75 g daily 3. Diabetes mellitus type 2: resume metformin and tradjenta. add sliding scale coverage 4. History of mild intermittent asthma. No evidence of exacerbation 5. Essential hypertension 6. GERD continue Pepcid 7. Hyperlipidemia continue statin 8. Leukocytosis likely reactive. White count has normalized. Chest x-ray negative. 9. Mild protein calorie malnutrition potassium 3.0. Add Glucerna shake twice a day GI prophylaxis Pepcid and DVT prophylaxis Xarelto I performed an examination of the patient and discussed their management with the physician Credit Processor. I have reviewed the Physician Credit Processor's notes and agree with the documented findings and plan of care
--- NOTE | 2018-03-03 15:01 | P.PN ---
Subjective Progress Note Date: 03/03/18 This is a pleasant 83-year-old gentleman with history of hypertension , diabetes, hyperlipidemia, hypothyroidism, paroxysmal atrial fibrillation, who was first diagnosed with A. fib approximately 5 years ago, he was in [place] at that time. He has had 2 subsequent bouts of atrial fibrillation, one time converted with medication, and most recently the patient was in [place] and [place] in January, while in [place] he went into atrial fibrillation with rapid ventricular response. According to the patient, they gave him some medication to try to convert him which was ineffective and subsequently he underwent cardioversion. He has remained in normal sinus rhythm until this time. Patient again felt symptoms of heart racing and palpitations, he went to see his primary care doctor and was recommended to come to the emergency room. EKG on arrival here showed atrial fibrillation with a rapid ventricular response , incomplete right bundle branch block pattern and nonspecific ST-T wave changes. Chest x-ray did not reveal any acute pulmonary disease. Blood pressure on arrival 125/70, heart rate in the low 100s. 98% on room air. Blood pressure this morning 120/60 with a heart rate in the low 100s, 96% on room air. White blood cell count 11.2 on arrival, 7.5 this morning, hemoglobin 13.1 this morning, 15.5 on admission. Platelet count 191. Sodium 137, potassium 4.2, BUN 13, creatinine 1.1. Magnesium 1.9. AST 40, ALT 30. Troponin 0.012. According to the patient, he did have an echocardiogram with Doppler study performed at [facility] yesterday. At the time of my examination this morning, the patient continues to be in atrial fibrillation his heart rate in the low 100s. He is currently on a Cardizem drip. 03/03/2018 Patient was seen and examined this morning, feeling well overall. Continues to be in atrial fibrillation. Blood pressure 120/60 with a heart rate in the 104. He continues to be on IV Cardizem which we will continue, we'll increase his dose of beta reed today. We will request Dr. Perrin to see the patient in consultation regarding further plan of care with antiarrhythmic therapy and /or ablation. Objective - Vital Signs Vital signs: Vital Signs Temp 97.6 F 03/03/18 12:00 Pulse 104 H 03/03/18 12:00 Resp 16 03/03/18 12:00 BP 123/59 03/03/18 12:00 Pulse Ox 97 03/03/18 12:00 Intake & Output 03/02/18 03/03/18 03/03/18 18:59 06:59 18:59 Intake Total 530 210 880 Output Total 1000 500 Balance -470 -290 880 Weight 88.8 kg Intake: Intake, IV Titration 50 210 160 Amount Diltiazem 50 mg In Sodium 50 50 Chloride 0.9% 40 ml @ 5 MG/HR 5 mls/hr IV .Q10H [facility] Rx#:[id number] Sodium Chloride 0.9% 1, 160 160 000 ml @ 20 mls/hr IV . Q24H [facility] Rx#:[id number] Oral 480 720 Output: Urine 1000 500 Other: Voiding Method Urinal # Voids 1 # Bowel Movements 1 0 - Exam PHYSICAL EXAMINATION: GENERAL: 83-year-old gentleman in no acute distress at time of my examination HEENT: Head is atraumatic, normocephalic. Pupils equal, round. Sclera anicteric. Conjunctiva are clear. Mucous membranes of the mouth are moist. Neck is supple. There is no elevated jugular venous pressure. No carotid bruit is heard. HEART EXAMINATION: Heart S1 and S2 irregularly irregular a systolic murmur is heard. CHEST EXAMINATION: Lungs are clear to auscultation and precussion. No chest wall tenderness is noted on palpation or with deep breathing. ABDOMEN: Soft, nontender. Bowel sounds are heard. No organomegaly noted. EXTREMITIES: 2+ peripheral pulses with no evidence of peripheral edema and no calf tenderness noted. NEUROLOGIC patient is awake, alert and oriented X3. - Labs CBC & Chem 7: 03/03/18 06:28 03/03/18 06:28 Labs: Abnormal Lab Results - Last 24 Hours (Table) 03/02/18 03/02/18 03/03/18 Range/Units 16:44 20:29 05:54 RBC (4.30-5.90) m/uL Hgb (13.0-17.5) gm/dL Hct (39.0-53.0) % Glucose (74-99) mg/dL POC Glucose (mg/dL) 166 H 164 H 116 H (75-99) mg/dL AST (17-59) U/L Total Protein (6.3-8.2) g/dL Albumin (3.5-5.0) g/dL 03/03/18 03/03/18 03/03/18 Range/Units 06:28 06:28 11:29 RBC 4.16 L (4.30-5.90) m/uL Hgb 12.7 L (13.0-17.5) gm/dL Hct 38.2 L (39.0-53.0) % Glucose 111 H (74-99) mg/dL POC Glucose (mg/dL) 148 H (75-99) mg/dL AST 15 L (17-59) U/L Total Protein 5.3 L (6.3-8.2) g/dL Albumin 3.0 L (3.5-5.0) g/dL Assessment and Plan Plan: Assessment and plan #1 atrial fibrillation with rapid ventricular response, paroxysmal, patient has known history of paroxysmal atrial fibrillation in the past., TSH level 5.8 #2 diabetes #3 hypertension #4 hyperlipidemia #5 GERD #6 hypothyroidism Plan Echocardiogram with Doppler study revealed a normal left ventricular systolic function. We will discontinue the IV Cardizem and increase the beta reed today. Consult with Dr. Perrin regarding further management. DNP note has been reviewed, I agree with a documented findings and plan of care. Patient was seen and examined.
--- NOTE | 2018-03-03 15:44 | P.PN ---
Progress Note - Text Progress Note Date: 03/03/18 This is an addendum to the cardiology progress note dictated today. Patient was seen today in consultation by Dr. Perrin. His recommendation is to control the patient's heart rate, plan for possible discharge home in the morning tomorrow. Outpatient sleep study. Ablation as an outpatient. DNP note has been reviewed, I agree with a documented findings and plan of care. Patient was seen and examined.
[2018-03-03] MEDS: SODIUM CHLORIDE 0.9% 1,000 ML IV SCH (16:23)
[2018-03-03] MEDS ORDERED: METOPROLOL SUCCINATE (ER) 25 MG TAB.ER.24H PO STA (16:24)
[2018-03-03 16:52] LABS: Glucose,Whole Blood 130 mg/dL (75-99)
--- NOTE | 2018-03-03 17:42 | P.CRDCN ---
History of Present Illness History of present illness: This is Dr. Perrin dictating a consult on this patient The patient was interviewed and examined by me IMPRESSION / ASSESSMENT: Symptomatic atrial fibrillation, persistent Hypertension Dyslipidemia Type 2 diabetes Mild aortic stenosis Preserved LV size and systolic function Mildly enlarged right ventricle and right atrium Left atrial enlargement moderate Hypothyroidism On amiodarone low dose for 4 years PLAN: Pulmonary function testing with DLCO tomorrow since he is on amiodarone. If this is abnormal. Amiodarone otherwise I will stop amiodarone 2 months after A. fib ablation Sleep apnea assessment I had a very detailed discussion with the patient regarding management of atrial fibrillation. Options of rate control strategy him a a different antiarrhythmic drug, electrical cardioversion and A. fib ablation were presented. Lynnette and cons were discussed. I recommend he proceed with me vein isolation of the pulmonary veins and then if needed consideration for preferably a different antiarrhythmic drug other than amiodarone. The side effect profile of amiodarone was discussed. The role of pulmonary veins in incision and perpetuation of atrial fibrillation was discussed. Radiofrequency ablation as well as cryoablation was discussed. Procedure was discussed in some detail. Complications including but not limited to cardiac injury including cardiac perforation pulmonary vein damage, esophageal injury phrenic nerve injury stroke pericardial effusion need for pericardiocentesis and open surgery of the chest was discussed Risks and benefits were discussed in detail both with the and the . I recommended that he continue xarelto and that the procedure will be done on uninterrupted anticoagulation. He understands that. I will schedule cryoablation of the pulmonary veins for him. Today we will increase the dose of metoprolol to 50 mrem by mouth daily long- acting IV Cardizem is being discontinued The decision regarding amiodarone will be taken subsequently TSH abnormality be to be addressed by admitting physician/PCP HPI Patient presented to [facility] complaining of palpitations and a stay sensation all over his body. He recognizes when he is in atrial fibrillation and feels strange all over. He has had more than 5 episodes of atrial fibrillation which was significant, over the last 4 years. He is also had multiple short episodes which passed quickly. During his episodes which are long-lasting he is strange feeling all over his body and he feels the palpitations and no season atrial fibrillation He was recently in [place] and is quite symptomatic and he had heart failure symptoms to with fluid buildup and underwent electrical cardioversion very recently He is in atrial fibrillation for about 4 years now, the first episode occurred when he was in [place] and at that time he is sitting in listening to a lecture when he felt very strange got up and walked out and passed out. Since then he' s been on oral amiodarone and has followed with his primary care physician Dr. Smith as well as Dr. Onofre He has a history of hypertension, diabetes, dyslipidemia Minimal alcohol use Nonsmoker ROS: No fever chills or rigors, no cough, phlegm or expectoration, no nausea, vomiting or diarrhea, no hematuria, dysuria, no musculoskeletal complaints, no strokes or seizures, no skin lesions. EXAMINATION Pulse rate is 104 beats a minute irregular, afebrile 97.6F Blood pressure 123/59 mmHg No JVD no thyromegaly Breath sounds are clear no rhonchi no crackles Heart sounds are normal with a very soft systolic murmur Abdomen is soft nontender Ixodes warm no edema REVIEW OF LABS, ECG Hemoglobin 12.7, normal electrolytes normal potassium BUN and creatinine normal 12/1.06, AST and ALT are normal TSH is mildly elevated at 5.8, patient on amiodarone Moderate left ventricular hypertrophy on 2-D echo with ejection fraction 55-60% Mildly enlarged RV Mild aortic stenosis Moderate left atrial enlargement Peak gradient of 22 mmHg across the aortic valve Mild mitral and mild tricuspid regurgitation Right ventricular systolic pressure is within normal limits Mildly dilated aortic root of 3.8 cm No pericardial effusion Twelve-lead ECG shows atrial fibrillation with RVR 129 beats a minute incomplete right bundle branch block pattern narrow QRS ST segment abnormalities noted, normal troponins Past Medical History Past Medical History: Atrial Fibrillation, Asthma, Diabetes Mellitus, GERD/ Reflux, Hyperlipidemia, Hypertension, Pneumonia, Prostate Disorder, Thyroid Disorder Additional Past Medical History / Comment(s): back pain, cataracts(sx done has lens implants), bronchitis,hx of lt wrist fx-no sx just casted.glaucoma lt eye, past stroke behind rt eye stated i can see but i have a blotch in the middle of my vision", past deviated septum and chronic sinusitis-(sx done) History of Any Multi-Drug Resistant Organisms: None Reported Past Surgical History: Adenoidectomy, Back Surgery, Hernia Repair, Orthopedic Surgery, Tonsillectomy Additional Past Surgical History / Comment(s): mastoidectomy rt ear,septoplasty , turp, sandee cataracts-lens implants, colonoscopy, vasectomy, cardiversion (nov when in [place]-for afib), lt thumb trigger finger sx, rt thumb 2nd, 3rd finger trigger finger sx. Past Anesthesia/Blood Transfusion Reactions: No Reported Reaction Past Psychological History: No Psychological Hx Reported Additional Psychological History / Comment(s): lives with .pt is independant served in [employer], has worked for [employer], [employer], and [employer] Smoking Status: Former smoker Past Alcohol Use History: Rare Past Drug Use History: None Reported Medications and Allergies Home Medications Medication Instructions Recorded Confirmed Type Fluticasone/Salmeterol [Advair 1 inhalation PO RT-BID 03/31/15 03/01/18 History 250-50 Diskus] Levothyroxine Sodium [Synthroid] 50 mcg PO DAILY 03/31/15 03/01/18 History Lisinopril-Hctz 20-12.5 mg 0.5 tab PO DAILY 03/31/15 03/01/18 History [Zestoretic 20-12.5] Metoprolol Succinate (ER) [Toprol 25 mg PO DAILY 03/31/15 03/01/18 History Xl] Montelukast [Singulair] 10 mg PO DAILY 03/31/15 03/01/18 History Omeprazole [PriLOSEC] 20 mg PO DAILY 03/31/15 03/01/18 History Rivaroxaban [Xarelto] 20 mg PO HS 03/31/15 03/01/18 History metFORMIN HCL [Glucophage] 1,000 mg PO HS 03/31/15 03/01/18 History Amiodarone HCl [Pacerone] 100 mg PO DAILY 03/01/18 03/01/18 History Cholecalciferol [Vitamin D3] 1,000 unit PO DAILY 03/01/18 03/01/18 History Multivitamins, Thera [Multivitamin 1 tab PO DAILY 03/01/18 03/01/18 History (formulary)] Hostetter-3 Fatty Acids [Hostetter-3] 1,000 mg PO DAILY 03/01/18 03/01/18 History Opti Florecita 1 tab PO DAILY 03/01/18 03/01/18 History Oxybutynin Chloride [Ditropan] 10 mg PO DAILY 03/01/18 03/01/18 History Ranitidine HCl [Zantac] 150 mg PO DAILY 03/01/18 03/01/18 History Sildenafil Citrate [Viagra] 100 mg PO ONCE PRN 03/01/18 03/01/18 History Simvastatin [Zocor] 20 mg PO HS 03/01/18 03/01/18 History Tamsulosin HCl [Flomax] 0.4 mg PO HS 03/01/18 03/01/18 History sitaGLIPtin [Januvia] 1 tab PO DAILY 03/01/18 03/01/18 History Betamethasone Dipropionate 2 inch NASAL BID 03/03/18 03/03/18 History [Betamethasone Dipropionate 0.05%] Timolol 0.5% Ophth Soln [Timoptic 1 drop BOTH EYES DAILY 03/03/18 03/03/18 History 0.5% Ophth Soln] Travoprost [Travatan Z 0.004%] 1 drop LEFT EYE HS 03/03/18 03/03/18 History Allergies Allergy/AdvReac Type Severity Reaction Status Date / Time No Known Allergies Allergy Verified 03/01/18 12:07 Physical Exam Vitals: Vital Signs Temp Pulse Resp BP Pulse Ox 03/03/18 12:00 97.6 F 104 H 16 123/59 97 03/03/18 08:40 98.3 F 73 16 127/78 98 03/03/18 04:00 92 16 115/68 97 03/02/18 23:39 91 18 03/02/18 23:38 98.0 F 91 18 113/58 97 03/02/18 20:38 95 03/02/18 19:39 94 18 03/02/18 19:36 97.9 F 94 18 118/74 97 Intake and Output 03/03/18 03/03/18 03/03/18 06:59 14:59 22:59 Intake Total 210 880 Output Total 300 Balance -90 880 Intake: Intake, IV Titration 210 160 Amount Diltiazem 50 mg In Sodium 50 Chloride 0.9% 40 ml @ 5 MG/HR 5 mls/hr IV .Q10H [facility] Rx#:[id number] Sodium Chloride 0.9% 1, 160 160 000 ml @ 20 mls/hr IV . Q24H [facility] Rx#:[id number] Oral 720 Output: Urine 300 Other: Voiding Method Urinal # Bowel Movements 0 Weight 88.8 kg Results 03/03/18 06:28 03/03/18 06:28 Cardiac Enzymes 03/03/18 Range/Units 06:28 AST 15 L (17-59) U/L CBC 03/03/18 Range/Units 06:28 WBC 6.4 (3.8-10.6) k/uL RBC 4.16 L (4.30-5.90) m/uL Hgb 12.7 L (13.0-17.5) gm/dL Hct 38.2 L (39.0-53.0) % Plt Count 190 (150-450) k/uL Comprehensive Metabolic Panel 03/03/18 Range/Units 06:28 Sodium 137 (137-145) mmol/L Potassium 3.9 (3.5-5.1) mmol/L Chloride 106 (98-107) mmol/L Carbon Dioxide 23 (22-30) mmol/L BUN 12 (9-20) mg/dL Creatinine 1.06 (0.66-1.25) mg/dL Glucose 111 H (74-99) mg/dL Calcium 8.5 (8.4-10.2) mg/dL AST 15 L (17-59) U/L ALT 29 (21-72) U/L Alkaline Phosphatase 43 (38-126) U/L Total Protein 5.3 L (6.3-8.2) g/dL Albumin 3.0 L (3.5-5.0) g/dL Current Medications Generic Name Dose Route Start Last Admin Trade Name Malq PRN Reason Stop Dose Admin Amiodarone HCl 100 mg 03/02/18 09:00 03/03/18 09:58 Cordarone PO 100 mg DAILY [facility] Administration Atorvastatin Calcium 10 mg 03/01/18 21:00 03/02/18 19:34 Lipitor PO 10 mg HS [facility]I Administration Budesonide/Formoterol Fumarate 2 puff 03/01/18 20:00 03/03/18 09:25 Symbicort 80-4.5 Mcg Inhaler INHALATION 2 puff RT-BID [facility]I Administration Cholecalciferol 1,000 unit 03/02/18 09:00 03/03/18 09:57 Vitamin D3 PO 1,000 unit DAILY [facility]I Administration Famotidine 20 mg 03/02/18 09:00 03/03/18 09:57 Pepcid PO 20 mg DAILY [facility] Administration Lisinopril/HCTZ 0.5 each 03/02/18 09:00 03/03/18 09:57 Zestoretic 20-12.5 PO 0.5 each DAILY [facility] Administration Sodium Chloride 1,000 mls @ 20 mls/hr 03/01/18 14:30 03/03/18 16:23 Saline 0.9% IV Not Given .Q24H [facility]I Insulin Aspart 0 unit 03/01/18 17:30 03/03/18 16:58 Novolog SQ Not Given ACHS [facility] Protocol Levothyroxine Sodium 75 mcg 03/02/18 06:30 03/03/18 06:27 Synthroid PO 75 mcg 0630 [facility] Administration Linagliptin 5 mg 03/02/18 09:00 03/03/18 09:57 Tradjenta PO 5 mg DAILY [facility] Administration Metformin HCl 1,000 mg 03/01/18 21:00 03/02/18 19:34 Glucophage PO 1,000 mg HS [facility] Administration Metoprolol Succinate 50 mg 03/04/18 09:00 Toprol Xl PO DAILY [facility] Montelukast Sodium 10 mg 03/02/18 09:00 03/03/18 09:57 Singulair PO 10 mg DAILY [facility] Administration Multivitamins 1 each 03/02/18 09:00 03/03/18 09:57 Theragran PO 1 each DAILY [facility] Administration Naloxone HCl 0.2 mg 03/01/18 14:30 Narcan IV Q2M PRN Opioid Reversal Oxybutynin Chloride 10 mg 03/02/18 09:00 03/03/18 09:57 Ditropan PO 10 mg DAILY [facility] Administration Pantoprazole Sodium 40 mg 03/02/18 07:30 03/03/18 06:27 Protonix PO 40 mg AC-[id number] [facility]I Administration Rivaroxaban 20 mg 03/01/18 21:00 03/02/18 20:41 Xarelto PO 20 mg HS [facility]I Administration Tamsulosin HCl 0.4 mg 03/01/18 21:00 03/02/18 19:34 Flomax PO 0.4 mg HS [facility]I Administration Intake and Output 03/03/18 03/03/18 03/03/18 06:59 14:59 22:59 Intake Total 210 880 Output Total 300 Balance -90 880 Intake: Intake, IV Titration 210 160 Amount Diltiazem 50 mg In Sodium 50 Chloride 0.9% 40 ml @ 5 MG/HR 5 mls/hr IV .Q10H [facility] Rx#:[id number] Sodium Chloride 0.9% 1, 160 160 000 ml @ 20 mls/hr IV . Q24H [facility] Rx#:[id number] Oral 720 Output: Urine 300 Other: Voiding Method Urinal # Bowel Movements 0 Weight 88.8 kg 03/03/18 06:28 03/03/18 06:28
[2018-03-03] MEDS: metFORMIN 500 MG TAB PO SCH (20:46)
[2018-03-03] MEDS: RIVAROXABAN 20 MG TAB PO SCH (20:46)
[2018-03-03] MEDS: ATORVASTATIN 10 MG TAB PO SCH (20:46)
[2018-03-03] MEDS: TAMSULOSIN 0.4 MG CAP.ER.24H PO SCH (20:46)
[2018-03-03 20:51] LABS: Glucose,Whole Blood 194 mg/dL (75-99)
[2018-03-04 06:03] LABS: Glucose,Whole Blood 121 mg/dL (75-99)
[2018-03-04] MEDS: INSULIN ASPART 100 UNIT/ML 1 ML 10 ML VIAL SQ SCH ×2 (06:13→12:34)
[2018-03-04] MEDS: PANTOPRAZOLE 40 MG TABLET PO SCH (06:26)
[2018-03-04] MEDS: LEVOTHYROXINE 75 MCG TAB PO SCH (06:26)
[2018-03-04] MEDS: SYMBICORT 80-4.5 MCG INHALER INHALATION SCH (07:28)
[2018-03-04 07:56] LABS: Albumin 3.2 g/dL (3.5-5.0); Calcium 8.8 mg/dL (8.4-10.2); Potassium 4.1 mmol/L (3.5-5.1); Total Bilirubin 0.8 mg/dL (0.2-1.3); Total Protein 5.4 g/dL (6.3-8.2)
[2018-03-04 08:03] LABS: Basophils % (A) 1 %; Eosinophils # (A) 0.1 k/uL (0-0.7); Eosinophils % (A) 2 %; HGB 12.9 gm/dL (13.0-17.5); Lymphocytes # (A) 1.4 k/uL (1.0-4.8); Lymphocytes % (A) 20 %; MCH 30.6 pg (25.0-35.0); MCV 92.7 fL (80.0-100.0); Mean Platelet Volume 7.6; Monocytes # (A) 0.4 k/uL (0-1.0); Monocytes % (A) 6 %; Neutrophils # (A) 4.7 k/uL (1.3-7.7); Neutrophils % (A) 69 %; Platelet Count 183 k/uL (150-450); RBC 4.21 m/uL (4.30-5.90); RDW 13.3 % (11.5-15.5); WBC 6.8 k/uL (3.8-10.6)
[2018-03-04 08:31] VITALS: TEMP 97.7
[2018-03-04] MEDS ORDERED: METOPROLOL SUCCINATE (ER) 50 MG TAB.ER.24H PO SCH (09:00)
[2018-03-04] MEDS: FAMOTIDINE 20 MG TAB PO SCH (09:34)
[2018-03-04] MEDS: LINAGLIPTIN 5 MG TABLET PO SCH (09:34)
[2018-03-04] MEDS: AMIODARONE 100 MG TAB PO SCH (09:34)
[2018-03-04] MEDS: CHOLECALCIFEROL 1,000 UNIT TAB PO SCH (09:34)
[2018-03-04] MEDS: MONTELUKAST 10 MG TAB PO SCH (09:35)
[2018-03-04] MEDS: OXYBUTYNIN CHLORIDE 5 MG TAB PO SCH (09:35)
[2018-03-04] MEDS: MULTIVITAMINS, THERA 1 EACH TAB PO SCH (09:35)
[2018-03-04] MEDS: LISINOPRIL-HCTZ 20-12.5 MG 1 EACH TAB PO SCH (09:36)
--- NOTE | 2018-03-04 11:23 | P.PN ---
Subjective Progress Note Date: 03/04/18 This is a pleasant 83-year-old gentleman with history of hypertension , diabetes, hyperlipidemia, hypothyroidism, paroxysmal atrial fibrillation, who was first diagnosed with A. fib approximately 5 years ago, he was in [place] at that time. He has had 2 subsequent bouts of atrial fibrillation, one time converted with medication, and most recently the patient was in [place] and [place] in January, while in [place] he went into atrial fibrillation with rapid ventricular response. According to the patient, they gave him some medication to try to convert him which was ineffective and subsequently he underwent cardioversion. He has remained in normal sinus rhythm until this time. Patient again felt symptoms of heart racing and palpitations, he went to see his primary care doctor and was recommended to come to the emergency room. EKG on arrival here showed atrial fibrillation with a rapid ventricular response , incomplete right bundle branch block pattern and nonspecific ST-T wave changes. Chest x-ray did not reveal any acute pulmonary disease. Blood pressure on arrival 125/70, heart rate in the low 100s. 98% on room air. Blood pressure this morning 120/60 with a heart rate in the low 100s, 96% on room air. White blood cell count 11.2 on arrival, 7.5 this morning, hemoglobin 13.1 this morning, 15.5 on admission. Platelet count 191. Sodium 137, potassium 4.2, BUN 13, creatinine 1.1. Magnesium 1.9. AST 40, ALT 30. Troponin 0.012. According to the patient, he did have an echocardiogram with Doppler study performed at [facility] yesterday. At the time of my examination this morning, the patient continues to be in atrial fibrillation his heart rate in the low 100s. He is currently on a Cardizem drip. 03/03/2018 Patient was seen and examined this morning, feeling well overall. Continues to be in atrial fibrillation. Blood pressure 120/60 with a heart rate in the 104. He continues to be on IV Cardizem which we will continue, we'll increase his dose of beta reed today. We will request Dr. Perrin to see the patient in consultation regarding further plan of care with antiarrhythmic therapy and /or ablation. 03/04/2018 Patient was seen and examined this morning, doing well overall. Up ambulating in the hallway without any difficulty. Heart rate overall maintaining in the 90s, with ambulation it does go up into the low 100 range. We will increase the dose of beta reed to 75 mg daily. They are unable to perform the PFTs as an inpatient, we will schedule the studies as an outpatient as well as a sleep study. Follow-up appointment with Dr. Gomez in the office. Ablation to be scheduled in March by Dr. Perrin. Objective - Vital Signs Vital signs: Vital Signs Temp 97.7 F 03/04/18 08:00 Pulse 124 H 03/04/18 08:00 Resp 18 03/04/18 08:00 BP 120/99 03/04/18 08:00 Pulse Ox 96 03/04/18 08:00 Intake & Output 03/03/18 03/04/18 03/04/18 18:59 06:59 18:59 Intake Total 1120 Output Total 300 400 Balance 820 -400 Weight 91.4 kg Intake: Intake, IV Titration 160 Amount Sodium Chloride 0.9% 1, 160 000 ml @ 20 mls/hr IV . Q24H [facility] Rx#:[id number] Oral 960 Output: Urine 300 400 Other: Voiding Method Urinal # Voids 1 # Bowel Movements 0 1 - Exam PHYSICAL EXAMINATION: GENERAL: 83-year-old gentleman in no acute distress at time of my examination HEENT: Head is atraumatic, normocephalic. Pupils equal, round. Sclera anicteric. Conjunctiva are clear. Mucous membranes of the mouth are moist. Neck is supple. There is no elevated jugular venous pressure. No carotid bruit is heard. HEART EXAMINATION: Heart S1 and S2 irregularly irregular a systolic murmur is heard. CHEST EXAMINATION: Lungs are clear to auscultation and precussion. No chest wall tenderness is noted on palpation or with deep breathing. ABDOMEN: Soft, nontender. Bowel sounds are heard. No organomegaly noted. EXTREMITIES: 2+ peripheral pulses with no evidence of peripheral edema and no calf tenderness noted. NEUROLOGIC patient is awake, alert and oriented X3. - Labs CBC & Chem 7: 03/04/18 06:54 03/04/18 06:54 Labs: Abnormal Lab Results - Last 24 Hours (Table) 03/03/18 03/03/18 03/03/18 Range/Units 11:29 16:49 20:49 RBC (4.30-5.90) m/uL Hgb (13.0-17.5) gm/dL Glucose (74-99) mg/dL POC Glucose (mg/dL) 148 H 130 H 194 H (75-99) mg/dL AST (17-59) U/L Total Protein (6.3-8.2) g/dL Albumin (3.5-5.0) g/dL 03/04/18 03/04/18 03/04/18 Range/Units 06:01 06:54 06:54 RBC 4.21 L (4.30-5.90) m/uL Hgb 12.9 L (13.0-17.5) gm/dL Glucose 123 H (74-99) mg/dL POC Glucose (mg/dL) 121 H (75-99) mg/dL AST 16 L (17-59) U/L Total Protein 5.4 L (6.3-8.2) g/dL Albumin 3.2 L (3.5-5.0) g/dL Assessment and Plan Plan: Assessment and plan #1 atrial fibrillation with rapid ventricular response, paroxysmal, patient has known history of paroxysmal atrial fibrillation in the past., TSH level 5.8 #2 diabetes #3 hypertension #4 hyperlipidemia #5 GERD #6 hypothyroidism Plan Echocardiogram with Doppler study revealed a normal left ventricular systolic function. We will increase the dose of beta reed to 75 mg daily today. Schedule sleep study and PFTs as an outpatient. Follow-up appointment with Dr. Gomez. Plan for outpatient scheduled ablation in March with Dr. Perrin. DNP note has been reviewed, I agree with a documented findings and plan of care. Patient was seen and examined.
[2018-03-04 12:07] LABS: Glucose,Whole Blood 123 mg/dL (75-99)
[2018-03-04 12:17] VITALS: BP 101/74; PULSE 96; RESP 16
--- NOTE | 2018-03-04 13:15 | P.DS ---
Providers Date of admission: 03/01/18 14:34 Expected date of discharge: 03/04/18 Attending physician: Hyun Antoine Consults: 03/01/18 14:35 Consult Physician Routine Consulting Provider: Hugo Chowdhury Consult Reason/Comments: Atrial fibrillation Do you want consulting provider notified?: Yes 03/02/18 11:39 Consult Physician Urgent Consulting Provider: Eduard Perrin Consult Reason/Comments: afib Do you want consulting provider notified?: Yes Primary care physician: Radha Smith [facility] Course: Discharge diagnosis 1. Atrial fibrillation with rapid ventricular response present on admission: Patient remains in atrial fibrillation on monitor. Patient evaluated by Dr. Perrin. Cardiac ablation to be completed outpatient. Patient is also on amiodarone 100 mg daily and Xarelto for anticoagulation. Cardiology increase the metoprolol to 75 mg daily. Patient has a history of paroxysmal atrial fibrillation with recent cardioversion about 2 weeks ago in [place] 2. Hypothyroidism: TSH elevated at 5.810 we'll increase Synthroid from 50 g to 75 g daily 3. Diabetes mellitus type 2: resume metformin and tradjenta. add sliding scale coverage 4. History of mild intermittent asthma. No evidence of exacerbation 5. Essential hypertension 6. GERD continue Pepcid 7. Hyperlipidemia continue statin 8. Leukocytosis likely reactive. White count has normalized. Chest x-ray negative. 9. Mild protein calorie malnutrition potassium 3.0. Add Glucerna shake twice a day Hospital course This is a 83-year-old male, patient of Dr. Smith. Patient has a known past medical history of atrial fibrillation anticoagulated with Xarelto. He also has a history of diabetes mellitus, hypothyroidism, hyperlipidemia, hypertension and asthma. Patient reports about 2 weeks ago when he was visiting his son in [place] he had to go into the hospital therefore atrial fibrillation with rapid ventricular response and did undergo a cardioversion at that time. Patient's reports that symptoms started yesterday he was having difficulty calculating his pulse. He reports that he did not miss any medications doses of his amiodarone or Toprol. Patient was sent by his PCP due to atrial fibrillation with rapid ventricular response. EKG in the ER did reveal evidence of atrial fibrillation with a heart rate of 129 and incomplete right bundle branch block. Patient started on Cardizem drip in the ER. They continued the Xarelto 20 mg at bedtime. Cardiology has been placed on consult. He denies any chest pain, shortness of breath, dizziness, lightheadedness, nausea or vomiting, fatigue, fever, chills or sweats. Denies any bowel movement changes or urinary symptoms. On 03/02/2018 patient is currently resting comfortably in bed. is at bedside. Patient remains on Cardizem drip. Heart rate remains elevated in the low 100s. Cardiology services are following. At this time patient denies chest pain or shortness of breath. Patient denies nausea vomiting or diarrhea. Patient denies any urinary burning or frequency. 03/03/2018 patient lying in bed comfortably. Heart rate reaches into the 130s with ambulating. Patient does remain in atrial fibrillation. Echo shows an EF of 55-60% with mild aortic stenosis, mild mitral regurgitation and tricuspid regurgitation. Patient remains on a Cardizem drip. Awaiting Dr. Perrin's evaluation. Patient denies any chest pain or shortness of breath. Denies any heart palpitations. Denies any nausea or vomiting. Reports having bowel movements. Denies any difficulty urinating. 03/04/2018 patient is medically stable for discharge. He has been cleared by cardiology for discharge. During this admission they have increased the metoprolol to 75 mg daily for better heart rate control. He initially was on IV Cardizem drip on admission. This was discontinued yesterday. patient seen by Dr. Perrin he is recommending cardiac ablation to be completed in the outpatient setting. Patient will follow-up with cardiology for further scheduling. Also Dr. Perrin is recommending a sleep study and PFT to be completed outpatient prior to the cardiac ablation. We'll set up sleep time study and PFT with Dr. Pierce I performed an examination of the patient and discussed their management with the physician Customer Service Leader. I have reviewed the Physician Customer Service Leader's notes and agree with the documented findings and plan of care Patient Condition at Discharge: Stable Plan - Discharge Summary Discharge Rx Participant: Yes New Discharge Prescriptions: New Levothyroxine Sodium [Synthroid] 75 mcg PO DAILY #30 tab Metoprolol Succinate (ER) [Toprol XL] 75 mg PO DAILY #90 tab.er.24h Continue metFORMIN HCL [Glucophage] 1,000 mg PO HS Montelukast [Singulair] 10 mg PO DAILY Lisinopril-Hctz 20-12.5 mg [Zestoretic 20-12.5] 0.5 tab PO DAILY Fluticasone/Salmeterol [Advair 250-50 Diskus] 1 inhalation PO RT-BID Rivaroxaban [Xarelto] 20 mg PO HS Omeprazole [PriLOSEC] 20 mg PO DAILY Opti Florecita 1 tab PO DAILY [place]-3 Fatty Acids [[place]-3] 1,000 mg PO DAILY Cholecalciferol [Vitamin D3] 1,000 unit PO DAILY Multivitamins, Thera [Multivitamin (formulary)] 1 tab PO DAILY Sildenafil Citrate [Viagra] 100 mg PO ONCE PRN PRN 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 Oxybutynin Chloride [Ditropan] 10 mg PO DAILY Tamsulosin HCl [Flomax] 0.4 mg PO HS Simvastatin [Zocor] 20 mg PO HS Amiodarone HCl [Pacerone] 100 mg PO DAILY sitaGLIPtin [Januvia] 1 tab PO DAILY Ranitidine HCl [Zantac] 150 mg PO DAILY Timolol 0.5% Ophth Soln [Timoptic 0.5% Ophth Soln] 1 drop BOTH EYES DAILY Travoprost [Travatan Z 0.004%] 1 drop LEFT EYE HS Betamethasone Dipropionate [Betamethasone Dipropionate 0.05%] 2 inch NASAL BID Discontinued Levothyroxine Sodium [Synthroid] 50 mcg PO DAILY Metoprolol Succinate (ER) [Toprol Xl] 25 mg PO DAILY Discharge Medication List Fluticasone/Salmeterol [Advair 250-50 Diskus] 1 inhalation PO RT-BID 03/31/15 [ History] Lisinopril-Hctz 20-12.5 mg [Zestoretic 20-12.5] 0.5 tab PO DAILY 03/31/15 [ History] Montelukast [Singulair] 10 mg PO DAILY 03/31/15 [History] Omeprazole [PriLOSEC] 20 mg PO DAILY 03/31/15 [History] Rivaroxaban [Xarelto] 20 mg PO HS 03/31/15 [History] metFORMIN HCL [Glucophage] 1,000 mg PO HS 03/31/15 [History] Amiodarone HCl [Pacerone] 100 mg PO DAILY 03/01/18 [History] Cholecalciferol [Vitamin D3] 1,000 unit PO DAILY 03/01/18 [History] Multivitamins, Thera [Multivitamin (formulary)] 1 tab PO DAILY 03/01/18 [History ] [place]-3 Fatty Acids [[place]-3] 1,000 mg PO DAILY 03/01/18 [History] Opti Florecita 1 tab PO DAILY 03/01/18 [History] Oxybutynin Chloride [Ditropan] 10 mg PO DAILY 03/01/18 [History] Ranitidine HCl [Zantac] 150 mg PO DAILY 03/01/18 [History] Sildenafil Citrate [Viagra] 100 mg PO ONCE PRN 03/01/18 [History] Simvastatin [Zocor] 20 mg PO HS 03/01/18 [History] Tamsulosin HCl [Flomax] 0.4 mg PO HS 03/01/18 [History] sitaGLIPtin [Januvia] 1 tab PO DAILY 03/01/18 [History] Betamethasone Dipropionate [Betamethasone Dipropionate 0.05%] 2 inch NASAL BID 03/03/18 [History] Timolol 0.5% Ophth Soln [Timoptic 0.5% Ophth Soln] 1 drop BOTH EYES DAILY [History] Travoprost [Travatan Z 0.004%] 1 drop LEFT EYE HS 03/03/18 [History] Levothyroxine Sodium [Synthroid] 75 mcg PO DAILY #30 tab 03/04/18 [Rx] Metoprolol Succinate (ER) [Toprol XL] 75 mg PO DAILY #90 tab.er.24h 03/04/18 [Rx ] Follow up Appointment(s)/Referral(s): Radha Smith DO [Primary Care Provider] - 03/10/18 10:00 am ( -previously scheduled appointment) Jean Pierre Gomez MD [STAFF PHYSICIAN] - 03/18/18 2:00 pm Jerrod Pierce MD [STAFF PHYSICIAN] - 1 Week Activity/Diet/Wound Care/Special Instructions: Diet: cardiac, diabetic Activity: as tolerated Sleep study and PFT as outpatient with Dr. Pierce Discharge Disposition: HOME SELF-CARE
[2018-03-05] MEDS ORDERED: METOPROLOL SUCCINATE (ER) 25 MG TAB.ER.24H PO SCH (09:00)
== END 2018-03-04 16:00 | disposition home or self-care (01) | DRG 309 ==
LOC: EC 11:15 → 3SCARD 14:34
PROVIDERS: ADMIT Internal Medicine; ATTEND Internal Medicine
DX: I48.1 Persistent atrial fibrillation (principal); E44.1 Mild protein-calorie malnutrition; D72.829 Elevated white blood cell count, unspecified; E03.9 Hypothyroidism, unspecified; E11.9 Type 2 diabetes mellitus without complications; E78.5 Hyperlipidemia, unspecified; I10 Essential (primary) hypertension; I45.10 Unspecified right bundle-branch block; J32.9 Chronic sinusitis, unspecified; J45.20 Mild intermittent asthma, uncomplicated; I08.3 Combined rheumatic disorders of mitral, aortic and tricuspid valves; Z96.1 Presence of intraocular lens; K21.9 Gastro-esophageal reflux disease without esophagitis; Z79.01 Long term (current) use of anticoagulants; Z79.84 Long term (current) use of oral hypoglycemic drugs; Z79.890 Hormone replacement therapy; Z79.899 Other long term (current) drug therapy; Z87.891 Personal history of nicotine dependence; Z98.42 Cataract extraction status, left eye; Z98.41 Cataract extraction status, right eye; Z79.51 Long term (current) use of inhaled steroids
CPT/HCPCS: 36415; 71046; 80053; 82550; 82553; 83036; 83735; 84443; 84484; 85025; 85610; 85730; 93005; 93306; 94060; 94640; 94726; 94729; 94760; 96365; 96366; 96376; 99291

== ENCOUNTER 2018-04-11 09:52 | Day surgery (SDC) | payer MEDICARE, OTHER ==
[2018-04-11 10:56] LABS: Glucose,Whole Blood 137 mg/dL (75-99)
[2018-04-11 11:02] LABS: Basophils # (A) 0.1 k/uL (0-0.2); Basophils % (A) 1 %; Eosinophils # (A) 0.3 k/uL (0-0.7); Eosinophils % (A) 3 %; HCT 38.3 % (39.0-53.0); HGB 12.9 gm/dL (13.0-17.5); Lymphocytes # (A) 1.2 k/uL (1.0-4.8); Lymphocytes % (A) 16 %; MCH 30.6 pg (25.0-35.0); MCHC 33.6 g/dL (31.0-37.0); Mean Platelet Volume 7.6; Monocytes # (A) 0.5 k/uL (0-1.0); Monocytes % (A) 6 %; Neutrophils # (A) 5.2 k/uL (1.3-7.7); Neutrophils % (A) 72 %; Platelet Count 229 k/uL (150-450); RBC 4.22 m/uL (4.30-5.90); RDW 14.1 % (11.5-15.5); WBC 7.3 k/uL (3.8-10.6)
[2018-04-11 11:04] LABS: Calcium 9.4 mg/dL (8.4-10.2); Potassium 4.6 mmol/L (3.5-5.1)
[2018-04-11] MEDS ORDERED: PHENYLEPHRINE-0.9% NACL SYG 1 MG/10 ML SYRINGE ONE (15:29)
[2018-04-11] MEDS ORDERED: LIDOCAINE 1% INJ 10MG/ML (20 ML MDV) ONE ×2 (15:29→15:46)
[2018-04-11] MEDS ORDERED: PROPOFOL 10 MG/ML 20 ML VIAL IV ONE (15:29)
[2018-04-11] MEDS ORDERED: ePHEDrine SULFATE/0.9% NACL/PF 50 MG/5 ML SYRINGE IV ONE (15:29)
[2018-04-11] MEDS ORDERED: IV FLUID CONTINUATION 950 ML IV ONE (15:29)
[2018-04-11] MEDS ORDERED: ISOPROTERENOL 250 MCG/1.25 ML SYR IV ONE (15:29)
[2018-04-11] MEDS ORDERED: ROCURONIUM BROMIDE 10 MG/ML 10 ML VIAL IV ONE (15:29)
[2018-04-11] MEDS ORDERED: MIDAZOLAM 2 MG/2 ML VIAL ONE (15:29)
[2018-04-11] MEDS ORDERED: fentaNYL (PF) 50 MCG/ML 2 ML AMP ONE (15:29)
[2018-04-11] MEDS ORDERED: SUCCINYLCHOLINE CHLORIDE 100 MG/5 ML SYR IV ONE (15:29)
[2018-04-11] MEDS ORDERED: HYDROcodone/APAP 5-325MG 1 EACH TAB PO PRN (15:47)
[2018-04-11] MEDS ORDERED: ACETAMINOPHEN TAB 325 MG TAB PO PRN (15:47)
[2018-04-11] MEDS ORDERED: LIDOCAINE 1% INJ 10MG/ML (20 ML MDV) SQ ONE (15:57)
[2018-04-11] MEDS ORDERED: HEPARIN SODIUM (1,000 UNIT/ML) 1,000 UNIT in SODIUM CHLORIDE 0.9% 1,000 ML IRRIGATION ONE (16:21)
[2018-04-11] MEDS: ACETAMINOPHEN IV (For NPO) 1,000 MG in EMPTY BAG 1 BAG IVPB ONE ×2 (18:04→18:20)
--- NOTE | 2018-04-11 18:08 | PCN ---
PROCEDURE NOTE Jason Stinson is an 83-year-old male patient with history of atrial fibrillation, recurrent episodes associated with presyncope, history of atrial tachycardia consistent with atrial flutter and atrial fibrillation episodes on amiodarone, syncope associated with atrial fibrillation, history of hypertension, diabetes, dyslipidemia, type 2 diabetes, dyslipidemia, mild aortic stenosis. He is brought in for an EP study and possible ablation after atrial tachycardia/atrial flutter. DESCRIPTION OF PROCEDURE: Patient was brought to the EP lab in a fasting state. Written informed consent was obtained prior to the procedure. The left shoulder area was prepped and draped as per protocol. Right and left groins were prepped and draped as per protocol. Venous sheaths were placed on right and left femoral veins. Via these diagnostic and mapping ablation catheters and intracardiac echo catheters were placed. Catheters were placed in the high right atrium, His bundle area, right ventricle, coronary sinus, intracardiac and mapping and ablation catheters were placed. The entrainment mapping was performed and 3D mapping was performed. The patient was in tachycardia. Tachycardia cycle length was 258 milliseconds, finally when the tachycardia terminated during RF ablation, sinus cycle length was about 755 milliseconds and the TN interval 189 milliseconds, QRS 95 milliseconds. QT 416 milliseconds. AH interval 56, HV interval 58 milliseconds. Sinus node recovery times at 600, 500 milliseconds were 822 and 563 milliseconds. AV christopher Wenckebach block from the CS was 350 milliseconds, VA Wenckebach block 440 milliseconds. The entrainment mapping was performed from the right atrial isthmus and the tachycardia was consistent with typical atrial flutter. Intracardiac echocardiography was performed. The isthmus was identified and tagged and an anatomic 3D mapping was performed. A small mid isthmus pouch was identified. RF ablation was performed from the tricuspid anulus to the eustachian ridge. the eustachian ridge. RF ablation resulted in termination of the tachycardia and resumption of normal sinus rhythm. Following that, a complete anatomic line was made. This was interrogated with 100% grid for any anatomic gaps. No anatomic gaps were noted. Thereafter pacing maneuvers were performed and with differential pacing complete bidirectional block was noted. Split potentials of 100 milliseconds were noted all along the RF line. Isuprel was used and an EP studies were performed on Isuprel. No atrial fibrillation. No other SVT was induced. RESULT: Diagnostic EP study revealing typical atrial flutter. of the tachycardia, successful mapping and ablation was performed. PLAN: Continue Xarelto and proceed with cryoablation of the pulmonary veins in about 6-8 weeks for management of asymptomatic atrial fibrillation with RVR, which has also resulted in presyncope and syncope in the past 3 months. Thereafter, oral amiodarone will be discontinued and other alternatives will be sought. MMODL / IJN: [id number] /
[2018-04-11] MEDS ORDERED: metFORMIN 500 MG TAB PO SCH (18:30)
[2018-04-11] MEDS ORDERED: RIVAROXABAN 20 MG TAB PO SCH (18:30)
[2018-04-11 19:08] VITALS: BMI 29.1
[2018-04-11 20:19] LABS: Glucose,Whole Blood 121 mg/dL (75-99)
[2018-04-11] MEDS ORDERED: ATORVASTATIN 10 MG TAB PO SCH (21:00)
[2018-04-12] MEDS ORDERED: LEVOTHYROXINE 75 MCG TAB PO SCH (06:30)
[2018-04-12 06:44] LABS: Glucose,Whole Blood 116 mg/dL (75-99)
[2018-04-12 07:44] VITALS: RESP 18
[2018-04-12] MEDS: SODIUM CHLORIDE 0.9% 1,000 ML IV SCH ×2 (07:53→07:54)
[2018-04-12] MEDS ORDERED: AMIODARONE 100 MG TAB PO SCH (09:00)
[2018-04-12] MEDS ORDERED: METOPROLOL SUCCINATE (ER) 25 MG TAB.ER.24H PO SCH (09:00)
[2018-04-12] MEDS ORDERED: MONTELUKAST 10 MG TAB PO SCH (09:00)
[2018-04-12] MEDS ORDERED: LISINOPRIL-HCTZ 20-12.5 MG 1 EACH TAB PO SCH (09:00)
[2018-04-12] MEDS ORDERED: LINAGLIPTIN 5 MG TABLET PO SCH (09:00)
[2018-04-12] MEDS ORDERED: PANTOPRAZOLE 40 MG TABLET PO SCH (09:00)
--- NOTE | 2018-04-12 11:45 | P.DS ---
Providers Attending physician: Eduard Perrin Primary care physician: [facility] Course: Patient came back for follow-up visit Afebrile 97.8F pulse 70s blood pressure 120/81 mmHg Heart sounds are normal normal S1 normal S2 regular no murmurs no gallops no rub Breath sounds are clear no rhonchi no crackles Abdomen soft Extended is warm groins of healed well his no hematoma no swelling Impression Atrial flutter symptomatic with RVR drug refractory and refractory to antiarrhythmic drug therapy Successful atrial flutter ablation yesterday Suggest Discharge home today and continue low-dose amiodarone 100 mg by mouth daily and I will schedule him for an EP study in [place]. fib ablation in the future Anticoagulants must be continued uninterrupted Follow up with Dr. Gomez in a week Patient Condition at Discharge: Stable Plan - Discharge Summary Discharge Rx Participant: No New Discharge Prescriptions: Continue metFORMIN HCL [Glucophage] 1,000 mg PO PC-SUPPER Montelukast [Singulair] 10 mg PO DAILY Lisinopril-Hctz 20-12.5 mg [Zestoretic 20-12.5] 0.5 tab PO DAILY Fluticasone/Salmeterol [Advair 250-50 Diskus] 1 inhalation PO RT-BID Rivaroxaban [Xarelto] 20 mg PO PC-SUPPER Omeprazole [PriLOSEC] 20 mg PO DAILY Opti Florecita 1 tab PO DAILY Hydro-3 Fatty Acids [Hydro-3] 1,000 mg PO DAILY Cholecalciferol [Vitamin D3] 1,000 unit PO DAILY Multivitamins, Thera [Multivitamin (formulary)] 1 tab PO DAILY Sildenafil Citrate [Viagra] 100 mg PO ONCE PRN PRN 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 Oxybutynin Chloride [Ditropan] 10 mg PO DAILY Tamsulosin HCl [Flomax] 0.4 mg PO HS Simvastatin [Zocor] 20 mg PO HS Amiodarone HCl [Pacerone] 100 mg PO DAILY sitaGLIPtin [Januvia] 100 mg PO DAILY Ranitidine HCl [Zantac] 150 mg PO DAILY Timolol 0.5% Ophth Soln [Timoptic 0.5% Ophth Soln] 1 drop BOTH EYES DAILY Travoprost [Travatan Z 0.004%] 1 drop LEFT EYE HS Betamethasone Dipropionate [Betamethasone Dipropionate 0.05%] 2 inch NASAL BID PRN PRN Reason: NASAL INFECTIONS Levothyroxine Sodium [Synthroid] 75 mcg PO DAILY #30 tab Metoprolol Succinate (ER) [Toprol XL] 75 mg PO DAILY #90 tab.er.24h Potassium Chloride ER [K-Dur 10] 10 meq PO DAILY Discharge Medication List Fluticasone/Salmeterol [Advair 250-50 Diskus] 1 inhalation PO RT-BID 03/31/15 [ History] Lisinopril-Hctz 20-12.5 mg [Zestoretic 20-12.5] 0.5 tab PO DAILY 03/31/15 [ History] Montelukast [Singulair] 10 mg PO DAILY 03/31/15 [History] Omeprazole [PriLOSEC] 20 mg PO DAILY 03/31/15 [History] Rivaroxaban [Xarelto] 20 mg PO PC-SUPPER 03/31/15 [History] metFORMIN HCL [Glucophage] 1,000 mg PO PC-SUPPER 03/31/15 [History] Amiodarone HCl [Pacerone] 100 mg PO DAILY 03/01/18 [History] Cholecalciferol [Vitamin D3] 1,000 unit PO DAILY 03/01/18 [History] Multivitamins, Thera [Multivitamin (formulary)] 1 tab PO DAILY 03/01/18 [History ] Hydro-3 Fatty Acids [Hydro-3] 1,000 mg PO DAILY 03/01/18 [History] Opti Florecita 1 tab PO DAILY 03/01/18 [History] Oxybutynin Chloride [Ditropan] 10 mg PO DAILY 03/01/18 [History] Ranitidine HCl [Zantac] 150 mg PO DAILY 03/01/18 [History] Sildenafil Citrate [Viagra] 100 mg PO ONCE PRN 03/01/18 [History] Simvastatin [Zocor] 20 mg PO HS 03/01/18 [History] Tamsulosin HCl [Flomax] 0.4 mg PO HS 03/01/18 [History] sitaGLIPtin [Januvia] 100 mg PO DAILY 03/01/18 [History] Betamethasone Dipropionate [Betamethasone Dipropionate 0.05%] 2 inch NASAL BID PRN 03/03/18 [History] Timolol 0.5% Ophth Soln [Timoptic 0.5% Ophth Soln] 1 drop BOTH EYES DAILY [History] Travoprost [Travatan Z 0.004%] 1 drop LEFT EYE HS 03/03/18 [History] Levothyroxine Sodium [Synthroid] 75 mcg PO DAILY #30 tab 03/04/18 [Rx] Metoprolol Succinate (ER) [Toprol XL] 75 mg PO DAILY #90 tab.er.24h 03/04/18 [Rx ] Potassium Chloride ER [K-Dur 10] 10 meq PO DAILY 04/07/18 [History] Activity/Diet/Wound Care/Special Instructions: Post EP study - Ablation instructions 1. Keep access sites dry for 2 days. 2. No heavy lifting or straining for 2 days. 3. Avoid bending the hips repeatedly for 2 days. 4. You may go up and down stairs slowly Call if the following is noted 1. Bleeding, increasing swelling or pain at the access sites. 2. Increasing chest discomfort, especially upon taking a deep breath. 3. Increasing shortness of breath, at rest or with exertion. 4. Undue cough / phlegm 5. Difficulty or pain while swallowing. 6. Pain or change in color in the extremities. 7. Fever, chills, rigors. 8. Increasing headache or neurologic symptoms. 9. Dizziness, fainting, palpitations Discharge Disposition: HOME SELF-CARE
[2018-04-12 11:58] LABS: Glucose,Whole Blood 154 mg/dL (75-99)
[2018-04-12 12:17] VITALS: BP 113/70; PULSE 73; TEMP 98.4
== END 2018-04-12 13:23 | disposition home or self-care (01) ==
LOC: CATHEP 09:52 → 1SOBS 17:02 → CATHEP 04-12 13:23
PROVIDERS: ATTEND Internal Medicine Clinical Cardiac Electrophysiology
DX: I48.91 Unspecified atrial fibrillation (principal); I48.92 Unspecified atrial flutter; R55 Syncope and collapse; I10 Essential (primary) hypertension; I35.0 Nonrheumatic aortic (valve) stenosis; E78.00 Pure hypercholesterolemia, unspecified; Z82.49 Family history of ischemic heart disease and other diseases of the circulatory system; E78.5 Hyperlipidemia, unspecified; E11.9 Type 2 diabetes mellitus without complications; Z79.84 Long term (current) use of oral hypoglycemic drugs; G47.30 Sleep apnea, unspecified; Z72.0 Tobacco use; Z79.01 Long term (current) use of anticoagulants; Z79.51 Long term (current) use of inhaled steroids; Z79.899 Other long term (current) drug therapy
CPT/HCPCS: 93623; 93662; 93613; 93653; 80048; 85025; C1894; C1769 ×2; C1730; C1759; C1893; J2250; J2001; J3010; J1644; J0131; J2370; J0330; J2704

== ENCOUNTER 2018-04-13 14:31 | Observation (INO) | payer MEDICARE, OTHER ==
[2018-04-13] MEDS ORDERED: SODIUM CHLORIDE 0.9% 500 ML 500 ML IV STA ×2 (14:54→17:11)
[2018-04-13] MEDS ORDERED: NITROGLYCERIN SL TABS 0.4 MG TAB SUBLINGUAL STA (14:57)
--- NOTE | 2018-04-13 15:11 | ED ---
General Adult HPI - General Chief complaint: Chest Pain Stated complaint: Chest Pain Source: patient, EMS, RN notes reviewed, old records reviewed Mode of arrival: EMS Limitations: no limitations - History of Present Illness Initial comments: 83-year-old male patient with past medical history of diabetes type 2, hypertension, hyperlipidemia, hypothyroid, atrial fibrillation status post ablation presents to ED with approximately 1.5 hours of substernal chest pain. Patient recently had a cardiac ablation procedure on 04/12 for atrial fibrillation. Patient reports that he has had some bilateral shoulder aching pain since this morning. Patient reports that 1.5 hours ago he began to develop a substernal pressure/stabbing sensation which radiates to his back. Pt states that chest pain began at rest. Patient states that he experiences this discomfort both at rest and with exertion. Patient was transported to ED EMS, he was administered aspirin and 1 sublingual nitro during EMS transit. Patient states that he sublingual nitro did not relieve his chest pain. Patient states that he is still currently experiencing chest pain which is substernal and radiates to his back. Patient denies any other associated symptoms. Patient denies diaphoresis, headache, syncope or presyncope. Patient denies heart palpitations. Patient denies shortness of breath, abdominal pain, nausea vomiting or diarrhea. Systemic: Pt denies fatigue, myalgia, fever/chills, rash. Pt denies weakness, night sweats, weight loss. Neuro: Pt denies headache, visual disturbances, syncope or pre-syncope. HEENT: Pt denies ocular discharge or irritation, otalgia, rhinorrhea, pharyngitis or notable lymphadenopathy. Cardiopulmonary: Pt denies SOB, heart palpitations, dyspnea on exertion. Abdominal/GI: Pt denies abdominal pain, n/v/d. : Pt denies dysuria, burning w/ urination, frequency/urgency. Denies new onset urinary or bowel incontinence. MSK: Pt denies myalgia, loss of strength or function in extremities. Neuro: Pt denies new onset weakness, paresthesias. - Related Data Home Medications Medication Instructions Recorded Confirmed Fluticasone/Salmeterol [Advair 1 puff INHALATION RT-BID 03/31/15 04/13/18 250-50 Diskus] Lisinopril-Hctz 20-12.5 mg 0.5 tab PO DAILY 03/31/15 04/13/18 [Zestoretic 20-12.5] Montelukast [Singulair] 10 mg PO DAILY 03/31/15 04/13/18 Omeprazole [PriLOSEC] 20 mg PO DAILY 03/31/15 04/13/18 Rivaroxaban [Xarelto] 20 mg PO PC-SUPPER 03/31/15 04/13/18 metFORMIN HCL [Glucophage] 1,000 mg PO PC-SUPPER 03/31/15 04/13/18 Amiodarone HCl [Pacerone] 100 mg PO DAILY 03/01/18 04/13/18 Cholecalciferol [Vitamin D3] 1,000 unit PO DAILY 03/01/18 04/13/18 Multivitamins, Thera [Multivitamin 1 tab PO DAILY 03/01/18 04/13/18 (formulary)] [place]-3 Fatty Acids [[place]-3] 1,000 mg PO DAILY 03/01/18 04/13/18 Opti Florecita 1 tab PO DAILY 03/01/18 04/13/18 Oxybutynin Chloride [Ditropan] 10 mg PO DAILY 03/01/18 04/13/18 Ranitidine HCl [Zantac] 150 mg PO DAILY 03/01/18 04/13/18 Sildenafil Citrate [Viagra] 100 mg PO ONCE PRN 03/01/18 04/13/18 Simvastatin [Zocor] 20 mg PO HS 03/01/18 04/13/18 Tamsulosin HCl [Flomax] 0.4 mg PO HS 03/01/18 04/13/18 sitaGLIPtin [Januvia] 100 mg PO DAILY 03/01/18 04/13/18 Betamethasone Dipropionate 2 inch NASAL BID PRN 03/03/18 04/13/18 [Betamethasone Dipropionate 0.05%] Timolol 0.5% Ophth Soln [Timoptic 1 drop BOTH EYES DAILY 03/03/18 04/13/18 0.5% Ophth Soln] Travoprost [Travatan Z 0.004%] 1 drop LEFT EYE HS 03/03/18 04/13/18 Potassium Chloride ER [K-Dur 10] 10 meq PO DAILY 04/07/18 04/13/18 Metoprolol Succinate (ER) [Toprol 50 mg PO DAILY 04/13/18 04/13/18 XL] Previous Rx's Medication Instructions Recorded Levothyroxine Sodium [Synthroid] 75 mcg PO DAILY #30 tab 03/04/18 Allergies Allergy/AdvReac Type Severity Reaction Status Date / Time No Known Allergies Allergy Verified 04/13/18 14:39 Review of Systems ROS Statement: Those systems with pertinent positive or pertinent negative responses have been documented in the HPI. ROS Other: All systems not noted in ROS Statement are negative. Past Medical History Past Medical History: Atrial Fibrillation, Asthma, COPD, Diabetes Mellitus, Eye Disorder, GERD/Reflux, Hyperlipidemia, Hypertension, Pneumonia, Prostate Disorder, Sleep Apnea/CPAP/BIPAP, Thyroid Disorder Additional Past Medical History / Comment(s): MIN Back pain. Hx of lt wrist fx- no sx just casted. Glaucoma lt eye, Past Stroke behind rt eye, "i have a blotch in the middle of my vision." BPH. Past deviated septum, chronic sinusitis-(sx done). AFIB. SEE H&P. WAITING FOR CPAP. History of Any Multi-Drug Resistant Organisms: None Reported Past Surgical History: Adenoidectomy, Back Surgery, Hernia Repair, Orthopedic Surgery, Tonsillectomy Additional Past Surgical History / Comment(s): Mastoidectomy Rt ear, Septoplasty, TURP, stevo cataracts-lens implants, colonoscopy, vasectomy, Cardioversion (01/2018 when in [place]-for afib), lt thumb trigger finger sx, rt thumb 2nd, 3rd finger trigger finger sx. STEVO ING HERNIA. Past Anesthesia/Blood Transfusion Reactions: No Reported Reaction Past Psychological History: No Psychological Hx Reported Smoking Status: Former smoker Past Alcohol Use History: Rare Past Drug Use History: None Reported - Past Family History Sister(s) Family Medical History: Cancer General Exam - General Exam Comments Initial Comments: Constitutional: NAD, AOX3, Pt has pleasant affect. HEENT: NC/AT, trachea midline, neck supple, no lymphadenopathy. Posterior pharynx non erythematous, without exudates. External ears appear normal, without discharge. Mucous membranes moist. Eyes PERRLA, EOM intact. There is no scleral icterus. No pallor noted. Cardiopulmonary: RRR, no murmurs, rubs or gallops, no JVD noted. Lungs CTAB in anterior and posterior lopez. Left lower extremity +2 pitting edema, RLE no peripheral edema. Abdominal exam: Abdomen soft and non-distended. Abdomen non-tender to palpation in all 4 quadrants. Bowel sounds active in LLQ. No hepatosplenomegaly. No ecchymosis Neuro: CN II-XII grossly intact. No nuchal rigidity. MSK: No posterior calf tenderness bilaterally, homans sign negative bilaterally. Posterior tibialis and radial pulse +2 bilaterally. Sensation intact in upper and lower extremities. Full active ROM in upper and lower extremities, 5/5 stregnth. Limitations: no limitations Course Vital Signs 04/13/18 04/13/18 04/13/18 14:34 15:00 16:00 Temperature 98.0 F Pulse Rate 67 71 71 Respiratory 20 20 20 Rate Blood Pressure 109/71 98/63 112/81 O2 Sat by Pulse 99 99 99 Oximetry 04/13/18 04/13/18 17:00 18:00 Temperature 98.3 F Pulse Rate 79 77 Respiratory 20 20 Rate Blood Pressure 101/82 145/61 O2 Sat by Pulse 96 96 Oximetry Medical Decision Making - Medical Decision Making 83-year-old male patient with past medical history of diabetes type 2, hypertension, hyperlipidemia, hypothyroid, atrial fibrillation status post ablation presents to ED with approximately 1.5 hours of substernal chest pain. Patient recently had a cardiac ablation procedure on 04/12 for atrial fibrillation. Patient reports that 1.5 hours ago he began to develop a substernal pressure/stabbing sensation which radiates to his back - began at rest. Patient states that he experiences this discomfort both at rest and with exertion. Patient was transported to ED EMS, he was administered aspirin and 1 sublingual nitro during EMS transit. Patient denies any other associated symptoms. Physical exam revealed LLE +2 edema, no other acute pathology. Laboratory evaluations revealed not impressive CBC. Coagulation studies were noncompressive. CMP revealed mildly elevated bilirubin. Troponin elevated 0.076. CK-MB wnl. Magnesium within normal limits. EKG was not concerning for acute ischemia. Discussed case with attending physician Dr. Espino who evaluated patient. Bedside echo performed by Dr. Espino revea;ed aortic root 2.34 cm, no sign of pericardial effusion. Dr. Marques was contacted, who evaluated patient in ED. Dr. Marques reccomended admission for continued evaluation, serial troponins, toradol for pain, no heparin at this time. Pt to be admitted to Dr. Norris. Attempt to contact Dr. Perrin by Dr. Espino. - Lab Data Result diagrams: 04/13/18 14:50 04/14/18 03:04 Lab Results 04/13/18 04/13/18 04/13/18 Range/Units 14:50 14:50 14:50 WBC 8.7 (3.8-10.6) k/uL RBC 3.91 L (4.30-5.90) m/uL Hgb 11.9 L (13.0-17.5) gm/dL Hct 36.1 L (39.0-53.0) % MCV 92.4 (80.0-100.0) fL MCH 30.4 (25.0-35.0) pg MCHC 32.8 (31.0-37.0) g/dL RDW 14.3 (11.5-15.5) % Plt Count 198 (150-450) k/uL Neutrophils % 78 % Lymphocytes % 10 % Monocytes % 7 % Eosinophils % 2 % Basophils % 1 % Neutrophils # 6.8 (1.3-7.7) k/uL Lymphocytes # 0.9 L (1.0-4.8) k/uL Monocytes # 0.7 (0-1.0) k/uL Eosinophils # 0.2 (0-0.7) k/uL Basophils # 0.1 (0-0.2) k/uL PT (9.0-12.0) sec INR (<1.2) APTT (22.0-30.0) sec Sodium 137 (137-145) mmol/L Potassium 4.7 (3.5-5.1) mmol/L Chloride 102 (98-107) mmol/L Carbon Dioxide 24 (22-30) mmol/L Anion Gap 11 mmol/L BUN 21 H (9-20) mg/dL Creatinine 1.17 (0.66-1.25) mg/dL Est GFR (CKD-EPI)AfAm 67 (>60 ml/min/1.73 sqM) Est GFR (CKD-EPI)NonAf 58 (>60 ml/min/1.73 sqM) Glucose 130 H (74-99) mg/dL Calcium 9.5 (8.4-10.2) mg/dL Magnesium 2.0 (1.6-2.3) mg/dL Total Bilirubin 2.1 H (0.2-1.3) mg/dL AST 29 (17-59) U/L ALT 44 (21-72) U/L Alkaline Phosphatase 52 (38-126) U/L Total Creatine Kinase 37 L (55-170) U/L CK-MB (CK-2) 0.6 (0.0-2.4) ng/mL CK-MB (CK-2) Rel Index 1.6 Troponin I 0.076 H* (0.000-0.034) ng/mL NT-Pro-B Natriuret Pep pg/mL Total Protein 6.5 (6.3-8.2) g/dL Albumin 4.2 (3.5-5.0) g/dL 04/13/18 04/13/18 Range/Units 14:50 14:50 WBC (3.8-10.6) k/uL RBC (4.30-5.90) m/uL Hgb (13.0-17.5) gm/dL Hct (39.0-53.0) % MCV (80.0-100.0) fL MCH (25.0-35.0) pg MCHC (31.0-37.0) g/dL RDW (11.5-15.5) % Plt Count (150-450) k/uL Neutrophils % % Lymphocytes % % Monocytes % % Eosinophils % % Basophils % % Neutrophils # (1.3-7.7) k/uL Lymphocytes # (1.0-4.8) k/uL Monocytes # (0-1.0) k/uL Eosinophils # (0-0.7) k/uL Basophils # (0-0.2) k/uL PT 12.7 H (9.0-12.0) sec INR 1.2 H (<1.2) APTT 29.7 (22.0-30.0) sec Sodium (137-145) mmol/L Potassium (3.5-5.1) mmol/L Chloride (98-107) mmol/L Carbon Dioxide (22-30) mmol/L Anion Gap mmol/L BUN (9-20) mg/dL Creatinine (0.66-1.25) mg/dL Est GFR (CKD-EPI)AfAm (>60 ml/min/1.73 sqM) Est GFR (CKD-EPI)NonAf (>60 ml/min/1.73 sqM) Glucose (74-99) mg/dL Calcium (8.4-10.2) mg/dL Magnesium (1.6-2.3) mg/dL Total Bilirubin (0.2-1.3) mg/dL AST (17-59) U/L ALT (21-72) U/L Alkaline Phosphatase (38-126) U/L Total Creatine Kinase (55-170) U/L CK-MB (CK-2) (0.0-2.4) ng/mL CK-MB (CK-2) Rel Index Troponin I (0.000-0.034) ng/mL NT-Pro-B Natriuret Pep 798 pg/mL Total Protein (6.3-8.2) g/dL Albumin (3.5-5.0) g/dL - EKG Data -: EKG Interpreted by Me (and Dr. Espino) EKG Comments: Ventricular rate 68, KS interval 190, QRS 96, QT/QTc 426/452. Normal sinus rhythm, incomplete right bundle branch block. No concerns for acute ischemia. Disposition Clinical Impression: Chest pain Disposition: ADMITTED IP TO THIS HOSP Condition: Serious Is patient prescribed a controlled substance at d/c from ED?: No
[2018-04-13 15:28] LABS: Albumin 4.2 g/dL (3.5-5.0); Calcium 9.5 mg/dL (8.4-10.2); Potassium 4.7 mmol/L (3.5-5.1); Total Bilirubin 2.1 mg/dL (0.2-1.3); Total Protein 6.5 g/dL (6.3-8.2)
[2018-04-13 15:29] LABS: INR 1.2 (<1.2); Partial Thromboplastin Time 29.7 sec (22.0-30.0); Prothrombin Time 12.7 sec (9.0-12.0)
[2018-04-13 15:31] LABS: Basophils # (A) 0.1 k/uL (0-0.2); Basophils % (A) 1 %; Eosinophils # (A) 0.2 k/uL (0-0.7); Eosinophils % (A) 2 %; HCT 36.1 % (39.0-53.0); HGB 11.9 gm/dL (13.0-17.5); Lymphocytes # (A) 0.9 k/uL (1.0-4.8); Lymphocytes % (A) 10 %; MCH 30.4 pg (25.0-35.0); MCHC 32.8 g/dL (31.0-37.0); MCV 92.4 fL (80.0-100.0); Mean Platelet Volume 7.4; Monocytes # (A) 0.7 k/uL (0-1.0); Monocytes % (A) 7 %; Neutrophils # (A) 6.8 k/uL (1.3-7.7); Neutrophils % (A) 78 %; Platelet Count 198 k/uL (150-450); RBC 3.91 m/uL (4.30-5.90); RDW 14.3 % (11.5-15.5); WBC 8.7 k/uL (3.8-10.6)
--- NOTE | 2018-04-13 15:42 | XR ---
EXAMINATION TYPE: XR chest 2V DATE OF EXAM: 04/13/2018 COMPARISON: 03/01/2018 INDICATION: Chest pain TECHNIQUE: Frontal and lateral views of the chest are obtained. FINDINGS: The heart size is normal. The pulmonary vasculature is normal. Posterior pleural effusion is present.. There is hyperinflation flattening the diaphragms compatible COPD. IMPRESSION: 1. Small posterior pleural effusion, and interval change. 2. COPD
[2018-04-13 15:50] LABS: Creatine Kinase MB 0.6 ng/mL (0.0-2.4)
[2018-04-13 15:54] LABS: Troponin I 0.076 ng/mL (0.000-0.034)
--- NOTE | 2018-04-13 16:16 | CT ---
EXAMINATION TYPE: CT angio thor/abd pel aorta DATE OF EXAM: 04/13/2018 COMPARISON: None. HISTORY: Chest and upper back pain. Post Ablation less that [address] DLP: 1850 mGycm. Automated Exposure Control for Dose Reduction was Utilized. CONTRAST: CTA scan of the aorta is performed without oral and without and with IV Contrast, patient injected wi th 80 mL of Isovue 370. Three-D reconstructed images are created on independent workstation and revie wed. FINDING VASCULAR: There is satisfactory opacification of the central pulmonary arteries. Ascending aorta maribell ures up to 3.7 cm diameter axial image 46. There is good three-vessel filling of vessels from arch. T here is moderate mixed plaque in the aortic arch and descending aorta with slight ectatic course of t he descending thoracic aorta noted. There is patent celiac axis, SMA, bilateral single renal arteries , and RODRÍGUEZ identified. There is moderately plaque in the common iliac arteries bilaterally extending i nto internal iliac arteries. There is moderate to severe plaque in common femoral arteries and bilate ral groin. No significant stenosis is clearly seen. No linear hypodensity to suggest dissection is no wong. LUNGS: Mild underlying emphysematous change is present. There are small to tiny right greater than le ft pleural effusions. There is associated compressive atelectasis in both bases. There is scattered l inear scarring and/or atelectasis also seen in both bases. MEDIASTINUM: There are enlarged right hilar lymph nodes measuring 2.3 x 1.6 cm axial image 50 for ref erence. Cardiomegaly is present. No pericardial effusion is seen. Coronary artery calcification is seen which is noted marker for coronary artery disease. OTHER: Asymmetric right greater than left bilateral gynecomastia is noted. LIVER/GB: No significant abnormality is appreciated. PANCREAS: No significant abnormality is seen. SPLEEN: There is 1.2 cm splenule in splenic hilum. ADRENALS: No significant abnormality is seen. KIDNEYS: No significant abnormality is seen. BOWEL: Diverticula throughout the colon most prominent sigmoid colon is noted. GENITAL ORGANS: Scattered pelvic phleboliths are seen. LYMPH NODES: No greater than 1cm abdominal or pelvic lymph nodes are appreciated. OSSEOUS STRUCTURES: Postsurgical change to the lumbar spine with laminectomy defects and spinous proc ess resection lower lumbar levels is seen. There is posterior fusion hardware. There is grade 1 anter olisthesis of L4 on L5. Severe narrowing L4-L5 level is seen. Moderate narrowing of both hip joints i s seen. OTHER: Mild ill-defined fat stranding anteriorly right groin is seen axial image 2 presumed from colt in access at this level. IMPRESSION: No aortic aneurysm or dissection. No suspicious acute finding seen to account for patien t's symptoms of chest pain into back.
[2018-04-13] MEDS ORDERED: MORPHINE SULFATE 4 MG/ML SYRINGE IVP STA (16:22)
[2018-04-13] MEDS ORDERED: KETOROLAC 60 MG/2 ML VIAL IM STA (17:00)
[2018-04-13] MEDS ORDERED: NITROGLYCERIN SL TABS 0.4 MG TAB SUBLINGUAL PRN (17:05)
[2018-04-13] MEDS ORDERED: MORPHINE SULFATE 2 MG/ML SYRINGE IVP PRN (17:05)
[2018-04-13 19:29] LABS: Glucose,Whole Blood 171 mg/dL (75-99)
[2018-04-13 21:10] LABS: Glucose,Whole Blood 159 mg/dL (75-99)
[2018-04-13 21:11] VITALS: RESP 18; BMI 29.4
[2018-04-13 21:21] LABS: Creatine Kinase MB 0.5 ng/mL (0.0-2.4)
[2018-04-13 21:23] LABS: Troponin I 0.074 ng/mL (0.000-0.034)
[2018-04-13] MEDS: INSULIN ASPART 100 UNIT/ML 1 ML 10 ML VIAL SQ SCH (21:37)
[2018-04-13] MEDS ORDERED: BETAMETHASONE DIPROPIONATE 0.05% OINTMENT 45 GM TUBE TOPICAL PRN (22:59)
[2018-04-13] MEDS ORDERED: ATORVASTATIN 10 MG TAB PO SCH (23:01)
[2018-04-13] MEDS: TAMSULOSIN 0.4 MG CAP.ER.24H PO SCH (23:33)
[2018-04-13] MEDS: LATANOPROST 0.005% OPHTH DROPS 2.5 ML BTL LEFT EYE SCH (23:35)
[2018-04-14 03:36] LABS: Cholesterol 85 mg/dL (<200); HDL Cholesterol 32 mg/dL (40-60); LDL Cholesterol,Calculated 36 mg/dL (0-99); Triglycerides 83 mg/dL (<150)
[2018-04-14 04:00] LABS: Creatine Kinase MB 0.3 ng/mL (0.0-2.4)
[2018-04-14 04:02] LABS: Troponin I 0.066 ng/mL (0.000-0.034)
[2018-04-14 05:39] LABS: Glucose,Whole Blood 144 mg/dL (75-99)
[2018-04-14] MEDS: INSULIN ASPART 100 UNIT/ML 1 ML 10 ML VIAL SQ SCH ×4 (06:16→21:18)
[2018-04-14] MEDS: LEVOTHYROXINE 75 MCG TAB PO SCH (06:16)
[2018-04-14] MEDS: PANTOPRAZOLE 40 MG TABLET PO SCH (06:16)
[2018-04-14 06:41] LABS: Appearance,Urine Clear (Clear); Bilirubin,Urine Negative (Negative); Blood,Urine Negative (Negative); Color,Urine Yellow; Glucose,Urine (UA) Negative (Negative); Ketones,Urine Negative (Negative); Leukocyte Esterase,Urine Negative (Negative); Mucus,Urine Rare /hpf; Nitrite,Urine Negative (Negative); PH, Urine 5.5 (5.0-8.0); Protein,Urine 1+ (Negative); RBC,Urine 2 /hpf (0-5); Squamous Epithelial Cell,Urine <1 /hpf (0-4)
[2018-04-14] MEDS: SYMBICORT 80-4.5 MCG INHALER INHALATION SCH ×2 (08:06→20:59)
[2018-04-14] MEDS: POTASSIUM CHLORIDE ER 10 MEQ TAB.ER.PRT PO SCH (08:59)
[2018-04-14] MEDS: AMIODARONE 100 MG TAB PO SCH (08:59)
[2018-04-14] MEDS: METOPROLOL SUCCINATE (ER) 25 MG TAB.ER.24H PO SCH (08:59)
[2018-04-14] MEDS: MONTELUKAST 10 MG TAB PO SCH (09:00)
[2018-04-14] MEDS: TIMOLOL 0.5% OPHTH DROPS 5 ML BTL BOTH EYES SCH (09:00)
[2018-04-14] MEDS: ASPIRIN 325 MG TAB PO SCH (09:00)
[2018-04-14] MEDS: OXYBUTYNIN CHLORIDE 5 MG TAB PO SCH (09:00)
[2018-04-14] MEDS ORDERED: LISINOPRIL-HCTZ 20-12.5 MG 1 EACH TAB PO SCH (09:00)
[2018-04-14] MEDS ORDERED: NON-FORMULARY DRUG (Omega-3 Fatty Acids [Omega-3] 1,000 MG) PO SCH (09:00)
[2018-04-14] MEDS: MULTIVITAMINS, THERA 1 EACH TAB PO SCH (09:00)
[2018-04-14] MEDS: FAMOTIDINE 20 MG TAB PO SCH (09:00)
[2018-04-14] MEDS: CHOLECALCIFEROL 1,000 UNIT TAB PO SCH (09:00)
--- NOTE | 2018-04-14 09:02 | CONS ---
CONSULTATION CHIEF COMPLAINT: Chest pain. Mr. Stinson is an 83-year-old gentleman with history of hypertension, dyslipidemia, atrial fibrillation, and type 2 diabetes who underwent ablation 2 weeks ago, came to the hospital complaining of chest pain. It started as interscapular pain from the day before and had gradually gotten worse. At the time of my evaluation, the patient seemed to be in discomfort and sublingual nitroglycerin did not have any effect on it. His chest pain stayed more musculoskeletal than anginal. EKG did not reveal ischemic changes. Cardiac enzymes are mildly elevated at 0.07. The patient had a CT scan of the chest that was negative for pulmonary embolism and there was no evidence of pericardial effusion. There was no aortic dissection. PAST MEDICAL HISTORY: Past medical history is significant for atrial fibrillation, status post ablation. Patient was actually discharged home on the . The procedure was done on 11 of April and patient was discharged home on . Past medical history is also significant for non-insulin diabetes, dyslipidemia, hypertension. MEDICATIONS: Current medications include Januvia 100 mg daily, metformin 1000 b.i.d., Flomax, Zocor 20 mg daily, Viagra, Xarelto 20 mg daily, K-Dur, Ditropan, Prilosec, Singulair, Toprol XL, Zestoretic, Synthroid, Advair. ALLERGIES: There are no known drug allergies. FAMILY HISTORY: Family history is negative for premature coronary artery disease. SOCIAL HISTORY: Social history is negative for current smoking, EtOH abuse, or drug abuse. REVIEW OF SYSTEMS: HEENT is unremarkable. CARDIAC: As described above. RESPIRATORY: Negative. GI: Negative. GENITOURINARY: Negative. ALLERGY/IMMUNOLOGY: Negative. SKIN: Negative. MUSCULOSKELETAL: Significant for arthritis. PSYCHOSOCIAL: Negative. ENDOCRINE: Negative. HEMATOLOGICAL: Negative. DERM: Negative. CONSTITUTIONAL: Negative. ONCOLOGICAL: Negative. Rest of the system review is not relevant. PHYSICAL EXAMINATION: On exam, patient is comfortable at rest. Afebrile. Heart rate is 63 beats per minute. Blood pressure is 95/47, respiratory rate is 18, O2 sat is 95% on room air. There is no jugular venous distention. Carotid upstroke is normal. There is no bruit. Chest exam reveals good air entry bilaterally. Heart exam reveals first and second heart sounds. No gallop. No murmur. No rub. Abdomen is soft, nontender. Examination of the extremities did not reveal any edema. Peripheral pulses are felt. LABS: Labs show potassium of 4.7, creatinine is 1.1. Troponin is mildly elevated. Hemoglobin is 11.9, white cell count is 8.7. ASSESSMENT: Precordial chest pain in a patient who underwent recent ablation. Chest discomfort seems musculoskeletal. Will follow his cardiac enzymes. Obtain a 2D echo and talk to Dr. Perrin and Dr. Gomez his primary monumental stonemason and hadoop consultant. This consultation was done on the 13 of April, I am dictating today. MMODL / IJN: [id number] /
[2018-04-14 09:29] LABS: Albumin 3.9 g/dL (3.5-5.0); Calcium 9.2 mg/dL (8.4-10.2); Potassium 4.7 mmol/L (3.5-5.1); Total Bilirubin 2.1 mg/dL (0.2-1.3); Total Protein 5.9 g/dL (6.3-8.2)
--- NOTE | 2018-04-14 11:24 | P.HPIM ---
History of Present Illness H&P Date: 04/14/18 This is an 83-year-old male patient of Dr. Smith. Patient presented to the emergency room with complaints of chest pain. Patient had recent cardiac ablation with Dr. Perrin on 04/12/2018 for atrial fibrillation patient states proximal to 24 hours after he was home patient woke up with chest pain that was about an hour and a half. Patient reports that the chest pain radiates to bilateral shoulders.. Patient denies any shortness of breath with chest pain occurrence. Patient does have a significant past medical history for atrial fibrillation, asthma, COPD, diabetes mellitus, I disorder, GERD, hyperlipidemia , hypertension, pneumonia, prostate disorder, sleep apnea, thyroid disorder, back surgery and ex-smoker. Troponins 0.076, 0.074 and 0.066. Chest x-ray completed showing small posterior pleural effusion, and interval change. COPD. Thoracic aorta CT showing no aortic aneurysm or dissection. No suspicious acute findings seen to account for patient's symptoms of chest pain into back. EKG completed showing normal sinus rhythm. Incomplete right bundle branch block. At this time patient is resting comfortably in chair. Patient denies chest pain or shortness breath. Patient denies nausea vomiting or diarrhea. Patient denies any urinary burning or frequency. Review of Systems Please refer to HPI otherwise unremarkable Past Medical History Past Medical History: Atrial Fibrillation, Asthma, COPD, Diabetes Mellitus, Eye Disorder, GERD/Reflux, Hyperlipidemia, Hypertension, Pneumonia, Prostate Disorder, Sleep Apnea/CPAP/BIPAP, Thyroid Disorder Additional Past Medical History / Comment(s): MIN Back pain. Hx of lt wrist fx- no sx just casted. Glaucoma lt eye, Past Stroke behind rt eye, "i have a blotch in the middle of my vision." BPH. Past deviated septum, chronic sinusitis-(sx done). AFIB. SEE [facility]. WAITING FOR CPAP. History of Any Multi-Drug Resistant Organisms: None Reported Past Surgical History: Adenoidectomy, Back Surgery, Hernia Repair, Orthopedic Surgery, Tonsillectomy Additional Past Surgical History / Comment(s): Mastoidectomy Rt ear, Septoplasty, TURP, stevo cataracts-lens implants, colonoscopy, vasectomy, Cardioversion (01/2018 when in [place]-for afib), lt thumb trigger finger sx, rt thumb 2nd, 3rd finger trigger finger sx. STEVO ING HERNIA. Past Anesthesia/Blood Transfusion Reactions: No Reported Reaction Past Psychological History: No Psychological Hx Reported Additional Psychological History / Comment(s): lives with .pt is independant served in the [email or web address], has worked for [employer], [employer], and a [email or web address] Smoking Status: Former smoker Past Alcohol Use History: Rare Additional Past Alcohol Use History / Comment(s): SMOKED AGE 17, QUIT 1972, 4 PPD. Past Drug Use History: None Reported - Past Family History Sister(s) Family Medical History: Cancer Medications and Allergies Home Medications Medication Instructions Recorded Confirmed Type Fluticasone/Salmeterol [Advair 1 puff INHALATION RT-BID 03/31/15 04/13/18 History 250-50 Diskus] Lisinopril-Hctz 20-12.5 mg 0.5 tab PO DAILY 03/31/15 04/13/18 History [Zestoretic 20-12.5] Montelukast [Singulair] 10 mg PO DAILY 03/31/15 04/13/18 History Omeprazole [PriLOSEC] 20 mg PO DAILY 03/31/15 04/13/18 History Rivaroxaban [Xarelto] 20 mg PO PC-SUPPER 03/31/15 04/13/18 History metFORMIN HCL [Glucophage] 1,000 mg PO PC-SUPPER 03/31/15 04/13/18 History Amiodarone HCl [Pacerone] 100 mg PO DAILY 03/01/18 04/13/18 History Cholecalciferol [Vitamin D3] 1,000 unit PO DAILY 03/01/18 04/13/18 History Multivitamins, Thera [Multivitamin 1 tab PO DAILY 03/01/18 04/13/18 History (formulary)] [place]-3 Fatty Acids [[place]-3] 1,000 mg PO DAILY 03/01/18 04/13/18 History Opti Florecita 1 tab PO DAILY 03/01/18 04/13/18 History Oxybutynin Chloride [Ditropan] 10 mg PO DAILY 03/01/18 04/13/18 History Ranitidine HCl [Zantac] 150 mg PO DAILY 03/01/18 04/13/18 History Sildenafil Citrate [Viagra] 100 mg PO ONCE PRN 03/01/18 04/13/18 History Simvastatin [Zocor] 20 mg PO HS 03/01/18 04/13/18 History Tamsulosin HCl [Flomax] 0.4 mg PO HS 03/01/18 04/13/18 History sitaGLIPtin [Januvia] 100 mg PO DAILY 03/01/18 04/13/18 History Betamethasone Dipropionate 2 inch NASAL BID PRN 03/03/18 04/13/18 History [Betamethasone Dipropionate 0.05%] Timolol 0.5% Ophth Soln [Timoptic 1 drop BOTH EYES DAILY 03/03/18 04/13/18 History 0.5% Ophth Soln] Travoprost [Travatan Z 0.004%] 1 drop LEFT EYE HS 03/03/18 04/13/18 History Levothyroxine Sodium [Synthroid] 75 mcg PO DAILY #30 tab 03/04/18 04/13/18 Rx Potassium Chloride ER [K-Dur 10] 10 meq PO DAILY 04/07/18 04/13/18 History Metoprolol Succinate (ER) [Toprol 50 mg PO DAILY 04/13/18 04/13/18 History XL] Allergies Allergy/AdvReac Type Severity Reaction Status Date / Time No Known Allergies Allergy Verified 04/13/18 14:39 Physical Exam Vitals: Vital Signs Temp Pulse Pulse Resp BP BP Pulse Ox 04/14/18 09:04 98.6 F 67 16 117/63 94 L 04/14/18 03:13 18 04/14/18 03:12 97.8 F 63 18 95/47 95 04/13/18 23:58 18 04/13/18 23:09 98 F 62 18 94/54 95 04/13/18 21:00 98.4 F 64 18 95/57 95 04/13/18 20:00 18 04/13/18 18:00 98.3 F 77 20 145/61 96 04/13/18 17:00 79 20 101/82 96 04/13/18 16:00 71 20 112/81 99 04/13/18 15:00 71 20 98/63 99 04/13/18 14:34 98.0 F 67 20 109/71 99 Intake and Output 04/13/18 04/14/18 04/14/18 22:59 06:59 14:59 Intake Total 240 Balance 240 Intake: Oral 240 Other: # Voids 1 1 Weight 95.708 kg 96.1 kg Head normocephalic Neck supple Lungs clear to auscultation bilaterally no wheezing or crackles Heart regular rate and rhythm S1-S2, no rub or gallop Abdomen is soft nontender nondistended positive bowel sounds no hepatosplenomegaly Extremities no edema Neuro alert and orientated to 3 Results CBC & Chem 7: 04/13/18 14:50 04/14/18 03:04 Labs: Abnormal Lab Results - Last 24 Hours (Table) 04/13/18 04/13/18 04/13/18 Range/Units 14:50 14:50 14:50 RBC 3.91 L (4.30-5.90) m/uL Hgb 11.9 L (13.0-17.5) gm/dL Hct 36.1 L (39.0-53.0) % Lymphocytes # 0.9 L (1.0-4.8) k/uL PT (9.0-12.0) sec INR (<1.2) BUN 21 H (9-20) mg/dL Creatinine (0.66-1.25) mg/dL Glucose 130 H (74-99) mg/dL POC Glucose (mg/dL) (75-99) mg/dL Total Bilirubin 2.1 H (0.2-1.3) mg/dL Total Creatine Kinase 37 L (55-170) U/L Troponin I 0.076 H* (0.000-0.034) ng/mL Total Protein (6.3-8.2) g/dL HDL Cholesterol (40-60) mg/dL Ur Specific [place] (1.001-1.035) Urine Protein (Negative) Urine Mucus (None) /hpf 04/13/18 04/13/18 04/13/18 Range/Units 14:50 19:26 20:26 RBC (4.30-5.90) m/uL Hgb (13.0-17.5) gm/dL Hct (39.0-53.0) % Lymphocytes # (1.0-4.8) k/uL PT 12.7 H (9.0-12.0) sec INR 1.2 H (<1.2) BUN (9-20) mg/dL Creatinine (0.66-1.25) mg/dL Glucose (74-99) mg/dL POC Glucose (mg/dL) 171 H (75-99) mg/dL Total Bilirubin (0.2-1.3) mg/dL Total Creatine Kinase 35 L (55-170) U/L Troponin I 0.074 H* (0.000-0.034) ng/mL Total Protein (6.3-8.2) g/dL HDL Cholesterol (40-60) mg/dL Ur Specific [place] (1.001-1.035) Urine Protein (Negative) Urine Mucus (None) /hpf 04/13/18 04/14/18 04/14/18 Range/Units 21:09 03:04 03:04 RBC (4.30-5.90) m/uL Hgb (13.0-17.5) gm/dL Hct (39.0-53.0) % Lymphocytes # (1.0-4.8) k/uL PT (9.0-12.0) sec INR (<1.2) BUN (9-20) mg/dL Creatinine (0.66-1.25) mg/dL Glucose (74-99) mg/dL POC Glucose (mg/dL) 159 H (75-99) mg/dL Total Bilirubin (0.2-1.3) mg/dL Total Creatine Kinase 32 L (55-170) U/L Troponin I 0.066 H* (0.000-0.034) ng/mL Total Protein (6.3-8.2) g/dL HDL Cholesterol 32 L (40-60) mg/dL Ur Specific [place] (1.001-1.035) Urine Protein (Negative) Urine Mucus (None) /hpf 04/14/18 04/14/18 04/14/18 Range/Units 03:04 05:38 06:26 RBC (4.30-5.90) m/uL Hgb (13.0-17.5) gm/dL Hct (39.0-53.0) % Lymphocytes # (1.0-4.8) k/uL PT (9.0-12.0) sec INR (<1.2) BUN 27 H (9-20) mg/dL Creatinine 2.02 H (0.66-1.25) mg/dL Glucose 147 H (74-99) mg/dL POC Glucose (mg/dL) 144 H (75-99) mg/dL Total Bilirubin 2.1 H (0.2-1.3) mg/dL Total Creatine Kinase (55-170) U/L Troponin I (0.000-0.034) ng/mL Total Protein 5.9 L (6.3-8.2) g/dL HDL Cholesterol (40-60) mg/dL Ur Specific [place] 1.050 H (1.001-1.035) Urine Protein 1+ H (Negative) Urine Mucus Rare H (None) /hpf Thrombosis Risk Factor Assmnt - Choose All That Apply Any of the Below Risk Factors Present?: Yes Each Factor Represents 1 point: Obesity (BMI >25) Other Risk Factors: Yes Each Risk Factor Represents 3 Points: Age 75 years or older Thrombosis Risk Factor Assessment Total Risk Factor Score: 4 Thrombosis Risk Factor Assessment Level: Moderate Risk Assessment and Plan Assessment: 1. Chest pain. Chest x-ray completed showing small posterior pleural effusion , and interval change. COPD. Computed tomography scan of the aorta and chest completed. Computed tomography scan of the aorta and chest completed showing no aortic aneurysm or dissection. No suspicious acute findings seen to account for patient's symptoms of chest pain. EKG completed showing normal sinus rhythm. Incomplete right bundle branch block. Troponin 0.074 and 0.066. Cardiology services have been consulted. Will obtain 2-D echo. 2. Recent ablation for atrial fibrillation. Patient underwent cardiac ablation with Dr. Perrin on 04/12/2018 3. History of atrial fibrillation. 4. History of asthma 5. History of COPD 6. History of diabetes mellitus 7. History of GERD 8. History of essential hypertension 9. History of pneumonia 10. History of GERD 11. History of prostate disorder 12. Acute kidney injury. Creatinine 2.02. Patient did undergo CTA scan yesterday with contrast. We'll continue to monitor closely. Patient's lisinopril hydrochlorothiazide currently on hold Time with Patient: Greater than 30 (Greater than 60% of the total time spent in counseling and coordination of care. I performed an examination of the patient and discussed their management with the Nurse Practitioner. I have reviewed the Nurse Practitioner's notes and agree with the documented findings and plan of care)
[2018-04-14 11:44] LABS: Glucose,Whole Blood 140 mg/dL (75-99)
[2018-04-14] MEDS: SODIUM CHLORIDE 0.9% 1,000 ML IV SCH ×2 (12:07→21:21)
[2018-04-14 13:57] LABS: Hemoglobin A1C 6.8 % (4.0-6.0)
[2018-04-14 16:28] LABS: Glucose,Whole Blood 185 mg/dL (75-99)
--- NOTE | 2018-04-14 18:02 | ECHOF ---
Referral Reason:post operative chest pain MEASUREMENTS -------- HEIGHT: 182.9 cm WEIGHT: 95.7 kg BP: 95/47 RVIDd: 3.8 cm (< 3.3) IVSd: 1.0 cm (0.6 - 1.1) LVIDd: 3.4 cm (3.9 - 5.3) LVPWd: 1.0 cm (0.6 - 1.1) IVSs: 1.6 cm LVIDs: 2.3 cm LVPWs: 1.4 cm LAESV Index (A-L): 37.96 ml/m Ao Diam: 3.0 cm (2.0 - 3.7) AV Cusp: 1.3 cm (1.5 - 2.6) LA Diam: 3.7 cm (2.7 - 3.8) MV EXCURSION: 18.048 mm (> 18.000) MV EF SLOPE: 102 mm/s (70 - 150) EPSS: 0.2 cm AV maxP.19 mmHg AV meanP.46 mmHg RAP: 5.00 mmHg RVSP: 21.76 mmHg FINDINGS -------- Sinus rhythm. This was a technically difficult study with suboptimal views. The left ventricular size is normal. Left ventricular wall thickness is normal. Overall left vent ricular systolic function is normal with, an EF between 55 - 60 %. The right ventricle is mild to moderately enlarged. LA is moderately dilated 34-39 ml/m2 The right atrial size is normal. Lumason used Aortic valve is trileaflet and is mildly thickened. There is mild aortic stenosis present. Peak/m janel gradient across the Aortic Valve is 21.19mmHg / 12.46mmHg. Mild mitral annular calcification present. Mild mitral regurgitation is present. Mild tricuspid regurgitation present. There is no evidence of pulmonary hypertension. The right v entricular systolic pressure, as measured by Doppler, is 21.76mmHg. There is no pulmonic regurgitation present. The aortic root size is normal. IVC Not well visulized. There is no pericardial effusion. CONCLUSIONS -------- 1. Sinus rhythm. 2. This was a technically difficult study with suboptimal views. 3. The left ventricular size is normal. 4. Left ventricular wall thickness is normal. 5. Overall left ventricular systolic function is normal with, an EF between 55 - 60 %. 6. The right ventricle is mild to moderately enlarged. 7. LA is moderately dilated 34-39 ml/m2 8. The right atrial size is normal. 9. Lumason used 10. Aortic valve is trileaflet and is mildly thickened. 11. There is mild aortic stenosis present. 12. Peak/mean gradient across the Aortic Valve is 21.19mmHg / 12.46mmHg. 13. Mild mitral annular calcification present. 14. Mild mitral regurgitation is present. 15. Mild tricuspid regurgitation present. 16. There is no evidence of pulmonary hypertension. 17. There is no pulmonic regurgitation present. 18. The aortic root size is normal. 19. IVC Not well visulized. 20. There is no pericardial effusion. FUNERAL DIRECTOR/EMBALMER: Robyn Martinez RDCS
[2018-04-14 21:10] LABS: Glucose,Whole Blood 138 mg/dL (75-99)
[2018-04-14] MEDS: TAMSULOSIN 0.4 MG CAP.ER.24H PO SCH (21:17)
[2018-04-14] MEDS: LATANOPROST 0.005% OPHTH DROPS 2.5 ML BTL LEFT EYE SCH (21:18)
[2018-04-14] MEDS ORDERED: RIVAROXABAN 10 MG TAB PO SCH (21:45)
[2018-04-15] MEDS: LEVOTHYROXINE 75 MCG TAB PO SCH (05:29)
[2018-04-15 05:43] LABS: Glucose,Whole Blood 134 mg/dL (75-99)
[2018-04-15 06:43] LABS: Basophils % (A) 1 %; Eosinophils # (A) 0.2 k/uL (0-0.7); Eosinophils % (A) 2 %; HCT 33.7 % (39.0-53.0); HGB 10.8 gm/dL (13.0-17.5); Lymphocytes # (A) 0.9 k/uL (1.0-4.8); Lymphocytes % (A) 10 %; MCH 29.9 pg (25.0-35.0); MCHC 32.2 g/dL (31.0-37.0); MCV 92.9 fL (80.0-100.0); Mean Platelet Volume 7.5; Monocytes # (A) 0.8 k/uL (0-1.0); Monocytes % (A) 10 %; Neutrophils # (A) 6.5 k/uL (1.3-7.7); Neutrophils % (A) 76 %; Platelet Count 191 k/uL (150-450); RBC 3.63 m/uL (4.30-5.90); RDW 14.3 % (11.5-15.5); WBC 8.5 k/uL (3.8-10.6)
[2018-04-15 07:02] LABS: Potassium 4.5 mmol/L (3.5-5.1)
[2018-04-15 07:03] LABS: Albumin 3.5 g/dL (3.5-5.0); Calcium 9.1 mg/dL (8.4-10.2); Total Bilirubin 2.4 mg/dL (0.2-1.3); Total Protein 5.7 g/dL (6.3-8.2)
[2018-04-15] MEDS: SYMBICORT 80-4.5 MCG INHALER INHALATION SCH (07:19)
[2018-04-15] MEDS: INSULIN ASPART 100 UNIT/ML 1 ML 10 ML VIAL SQ SCH ×2 (08:02→12:30)
[2018-04-15] MEDS: AMIODARONE 100 MG TAB PO SCH (08:10)
[2018-04-15] MEDS: OXYBUTYNIN CHLORIDE 5 MG TAB PO SCH (08:10)
[2018-04-15] MEDS: PANTOPRAZOLE 40 MG TABLET PO SCH (08:11)
[2018-04-15] MEDS: MULTIVITAMINS, THERA 1 EACH TAB PO SCH (08:11)
[2018-04-15] MEDS: CHOLECALCIFEROL 1,000 UNIT TAB PO SCH (08:11)
[2018-04-15] MEDS: METOPROLOL SUCCINATE (ER) 25 MG TAB.ER.24H PO SCH (08:11)
[2018-04-15] MEDS: ASPIRIN 325 MG TAB PO SCH (08:11)
[2018-04-15] MEDS: POTASSIUM CHLORIDE ER 10 MEQ TAB.ER.PRT PO SCH (08:11)
[2018-04-15] MEDS: TIMOLOL 0.5% OPHTH DROPS 5 ML BTL BOTH EYES SCH (08:11)
[2018-04-15] MEDS: FAMOTIDINE 20 MG TAB PO SCH (08:11)
[2018-04-15] MEDS: MONTELUKAST 10 MG TAB PO SCH (08:11)
[2018-04-15] MEDS: SODIUM CHLORIDE 0.9% 1,000 ML IV SCH (08:12)
[2018-04-15] MEDS ORDERED: MORPHINE ORAL SOLN 10 MG/5 ML CUP PO PRN (10:19)
[2018-04-15 11:15] LABS: Glucose,Whole Blood 192 mg/dL (75-99)
--- NOTE | 2018-04-15 14:28 | P.PN ---
Subjective Progress Note Date: 04/15/18 This is a pleasant 83-year-old gentleman who follows regularly with Dr. Gomez in the office. He has a known history of hypertension, hyperlipidemia, paroxysmal atrial fibrillation, diabetes, he underwent an ablation approximately 2 weeks ago and presented to the hospital with symptoms of chest discomfort, quite atypical for acute coronary syndrome. EKG did not reveal any ischemic changes, patient had a computed tomography scan of the chest which was negative for pulmonary embolism and there is no evidence for pericardial effusion, no aortic dissection. Echocardiogram with Doppler study was performed which revealed a normal left ventricular systolic function with no evidence of pericardial effusion. Blood pressure this morning 125/50 with a heart rate in the 60s, 95% on room air. White blood cell count 8.5, hemoglobin 10.8, platelet count 191. Sodium 136, potassium 4.5, BUN 31 and creatinine 1.7. Objective - Vital Signs Vital signs: Vital Signs Temp 98.6 F 04/15/18 08:31 Pulse 66 04/15/18 08:31 Resp 18 04/15/18 08:31 BP 125/59 04/15/18 08:31 Pulse Ox 95 04/15/18 08:31 Intake & Output 04/14/18 04/15/18 04/15/18 18:59 06:59 18:59 Intake Total 240 240 Balance 240 240 Weight 98.2 kg Intake: Oral 240 240 Other: # Voids 2 2 - Exam PHYSICAL EXAMINATION: GENERAL: 83-year-old gentleman in no acute distress at the time of my examination HEENT: Head is atraumatic, normocephalic. Pupils equal, round. Sclera anicteric. Conjunctiva are clear. Mucous membranes of the mouth are moist. Neck is supple. There is no elevated jugular venous pressure. No carotid bruit is heard. HEART EXAMINATION: Heart S1, S2 normal. No murmur or gallop heard. CHEST EXAMINATION: Lungs are clear to auscultation and precussion. No chest wall tenderness is noted on palpation or with deep breathing. ABDOMEN: Soft, nontender. Bowel sounds are heard. No organomegaly noted. EXTREMITIES: 2+ peripheral pulses with no evidence of peripheral edema and no calf tenderness noted. NEUROLOGIC patient is awake, alert and oriented 3. . - Labs CBC & Chem 7: 04/15/18 05:46 04/15/18 05:46 Labs: Abnormal Lab Results - Last 24 Hours (Table) 04/14/18 04/14/18 04/14/18 Range/Units 03:04 16:26 21:09 RBC (4.30-5.90) m/uL Hgb (13.0-17.5) gm/dL Hct (39.0-53.0) % Lymphocytes # (1.0-4.8) k/uL Sodium (137-145) mmol/L BUN (9-20) mg/dL Creatinine (0.66-1.25) mg/dL Glucose (74-99) mg/dL POC Glucose (mg/dL) 185 H 138 H (75-99) mg/dL Hemoglobin A1c 6.8 H (4.0-6.0) % Total Bilirubin (0.2-1.3) mg/dL Total Protein (6.3-8.2) g/dL 04/15/18 04/15/18 04/15/18 Range/Units 05:42 05:46 05:46 RBC 3.63 L (4.30-5.90) m/uL Hgb 10.8 L (13.0-17.5) gm/dL Hct 33.7 L (39.0-53.0) % Lymphocytes # 0.9 L (1.0-4.8) k/uL Sodium 136 L (137-145) mmol/L BUN 31 H (9-20) mg/dL Creatinine 1.74 H (0.66-1.25) mg/dL Glucose 128 H (74-99) mg/dL POC Glucose (mg/dL) 134 H (75-99) mg/dL Hemoglobin A1c (4.0-6.0) % Total Bilirubin 2.4 H (0.2-1.3) mg/dL Total Protein 5.7 L (6.3-8.2) g/dL 04/15/18 Range/Units 11:14 RBC (4.30-5.90) m/uL Hgb (13.0-17.5) gm/dL Hct (39.0-53.0) % Lymphocytes # (1.0-4.8) k/uL Sodium (137-145) mmol/L BUN (9-20) mg/dL Creatinine (0.66-1.25) mg/dL Glucose (74-99) mg/dL POC Glucose (mg/dL) 192 H (75-99) mg/dL Hemoglobin A1c (4.0-6.0) % Total Bilirubin (0.2-1.3) mg/dL Total Protein (6.3-8.2) g/dL Assessment and Plan Plan: Assessment and plan 1. Chest pain. Atypical for acute coronary syndrome. Troponins 0.076, 0.074, 0.066. Echo revealed normal left ventricular systolic function with no evidence of pericardial effusion. 2. Recent ablation for atrial fibrillation. Patient underwent cardiac ablation with Dr. Perrin on 04/12/2018 3. History of atrial fibrillation, paroxysmal. 4. History of asthma 5. History of COPD 6. History of diabetes mellitus 7. History of GERD 8. History of essential hypertension 9. History of pneumonia 10. History of GERD Plan Cardiology's perspective, we'll recommend the patient to continue on his current medications. We will recommend he keep his follow-up appointment as scheduled with Dr. Gomez. DNP note has been reviewed, I agree with a documented findings and plan of care. Patient was seen and examined.
--- NOTE | 2018-04-15 15:29 | P.DS ---
Providers Date of admission: 04/13/18 17:07 Expected date of discharge: 04/15/18 Attending physician: Hyun Antoine Consults: 04/13/18 17:06 Consult Physician Urgent Consulting Provider: Perfecto Marques Consult Reason/Comments: Post operative chest pain Do you want consulting provider notified?: Yes Primary care physician: Rad[facility] Course: Discharge diagnosis 1. Chest pain. Chest x-ray completed showing small posterior pleural effusion , and interval change. COPD. Computed tomography scan of the aorta and chest completed. Computed tomography scan of the aorta and chest completed showing no aortic aneurysm or dissection. No suspicious acute findings seen to account for patient's symptoms of chest pain. EKG completed showing normal sinus rhythm. Incomplete right bundle branch block. Troponin 0.074 and 0.066. 2-D echo obtained showing an EF of 55-60%. Patient has been cleared for discharge from cardiology standpoint. Chest pain was atypical for acute coronary syndrome. Patient to maintain on current medications and follow-up with cardiology outpatient 2. Recent ablation for atrial fibrillation. Patient underwent cardiac ablation with Dr. Perrin on 04/12/2018 3. History of atrial fibrillation. 4. History of asthma 5. History of COPD 6. History of diabetes mellitus 7. History of GERD 8. History of essential hypertension 9. History of pneumonia 10. History of GERD 11. History of prostate disorder 12. Acute kidney injury. Creatinine 2.02. Patient did undergo CTA scan yesterday with contrast. We'll continue to monitor closely. Patient's lisinopril hydrochlorothiazide currently on hold hospital course This is an 83-year-old male patient of Dr. Smith. Patient presented to the emergency room with complaints of chest pain. Patient had recent cardiac ablation with Dr. Perrin on 04/12/2018 for atrial fibrillation patient states proximal to 24 hours after he was home patient woke up with chest pain that was about an hour and a half. Patient reports that the chest pain radiates to bilateral shoulders.. Patient denies any shortness of breath with chest pain occurrence. Patient does have a significant past medical history for atrial fibrillation, asthma, COPD, diabetes mellitus, I disorder, GERD, hyperlipidemia , hypertension, pneumonia, prostate disorder, sleep apnea, thyroid disorder, back surgery and ex-smoker. Troponins 0.076, 0.074 and 0.066. Chest x-ray completed showing small posterior pleural effusion, and interval change. COPD. Thoracic aorta CT showing no aortic aneurysm or dissection. No suspicious acute findings seen to account for patient's symptoms of chest pain into back. EKG completed showing normal sinus rhythm. Incomplete right bundle branch block. At this time patient is resting comfortably in chair. Patient denies chest pain or shortness breath. Patient denies nausea vomiting or diarrhea. Patient denies any urinary burning or frequency. On 04/15/2017 patient has been cleared from cardiology for discharge. Patient to maintain on cardiac meds at this time. Patient did have episode of acute kidney injury. Creatinine increasing to 2.02. Patient did receive IV contrast with computed tomography scan. Patient did receive some fluids. Creatinine is improving to 1.74. Patient is anxious to go home. Advised patient to increase oral intake and to follow-up closely with his PCP next week. Repeat CMP has been ordered. Patient's lisinopril hydrochlorothiazide, metformin and Januvia currently on hold and patient to follow-up with his PCP for restarting these medications. Repeat CMP has been ordered. At this time patient states he feels great. Patient denies nausea vomiting or diarrhea. Patient denies any urinary burning or frequency. I performed an examination of the patient and discussed their management with the Nurse Practitioner. I have reviewed the Nurse Practitioner's notes and agree with the documented findings and plan of care Patient Condition at Discharge: Stable Plan - Discharge Summary Discharge Rx Participant: No New Discharge Prescriptions: Continue Montelukast [Singulair] 10 mg PO DAILY Fluticasone/Salmeterol [Advair 250-50 Diskus] 1 puff INHALATION RT-BID Rivaroxaban [Xarelto] 20 mg PO PC-SUPPER Omeprazole [PriLOSEC] 20 mg PO DAILY Opti Florecita 1 tab PO DAILY [place]-3 Fatty Acids [[place]-3] 1,000 mg PO DAILY Cholecalciferol [Vitamin D3] 1,000 unit PO DAILY Multivitamins, Thera [Multivitamin (formulary)] 1 tab PO DAILY Sildenafil Citrate [Viagra] 100 mg PO ONCE PRN PRN 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 Oxybutynin Chloride [Ditropan] 10 mg PO DAILY Tamsulosin HCl [Flomax] 0.4 mg PO HS Simvastatin [Zocor] 20 mg PO HS Amiodarone HCl [Pacerone] 100 mg PO DAILY Ranitidine HCl [Zantac] 150 mg PO DAILY Timolol 0.5% Ophth Soln [Timoptic 0.5% Ophth Soln] 1 drop BOTH EYES DAILY Travoprost [Travatan Z 0.004%] 1 drop LEFT EYE HS Betamethasone Dipropionate [Betamethasone Dipropionate 0.05%] 2 inch NASAL BID PRN PRN Reason: NASAL INFECTIONS Levothyroxine Sodium [Synthroid] 75 mcg PO DAILY #30 tab Metoprolol Succinate (ER) [Toprol XL] 50 mg PO DAILY Discontinued metFORMIN HCL [Glucophage] 1,000 mg PO PC-SUPPER Lisinopril-Hctz 20-12.5 mg [Zestoretic 20-12.5] 0.5 tab PO DAILY sitaGLIPtin [Januvia] 100 mg PO DAILY Potassium Chloride ER [K-Dur 10] 10 meq PO DAILY Discharge Medication List Fluticasone/Salmeterol [Advair 250-50 Diskus] 1 puff INHALATION RT-BID 03/31/15 [History] Montelukast [Singulair] 10 mg PO DAILY 03/31/15 [History] Omeprazole [PriLOSEC] 20 mg PO DAILY 03/31/15 [History] Rivaroxaban [Xarelto] 20 mg PO PC-SUPPER 03/31/15 [History] Amiodarone HCl [Pacerone] 100 mg PO DAILY 03/01/18 [History] Cholecalciferol [Vitamin D3] 1,000 unit PO DAILY 03/01/18 [History] Multivitamins, Thera [Multivitamin (formulary)] 1 tab PO DAILY 03/01/18 [History ] [place]-3 Fatty Acids [[place]-3] 1,000 mg PO DAILY 03/01/18 [History] Opti Florecita 1 tab PO DAILY 03/01/18 [History] Oxybutynin Chloride [Ditropan] 10 mg PO DAILY 03/01/18 [History] Ranitidine HCl [Zantac] 150 mg PO DAILY 03/01/18 [History] Sildenafil Citrate [Viagra] 100 mg PO ONCE PRN 03/01/18 [History] Simvastatin [Zocor] 20 mg PO HS 03/01/18 [History] Tamsulosin HCl [Flomax] 0.4 mg PO HS 03/01/18 [History] Betamethasone Dipropionate [Betamethasone Dipropionate 0.05%] 2 inch NASAL BID PRN 03/03/18 [History] Timolol 0.5% Ophth Soln [Timoptic 0.5% Ophth Soln] 1 drop BOTH EYES DAILY [History] Travoprost [Travatan Z 0.004%] 1 drop LEFT EYE HS 03/03/18 [History] Levothyroxine Sodium [Synthroid] 75 mcg PO DAILY #30 tab 03/04/18 [Rx] Metoprolol Succinate (ER) [Toprol XL] 50 mg PO DAILY 04/13/18 [History] Follow up Appointment(s)/Referral(s): Radha Smith DO [Primary Care Provider] - 04/18/18 10:15 am (Wednesday) Jean Pierre Gomez MD [STAFF PHYSICIAN] - 1 Week Ambulatory/Diagnostic Orders: Comprehensive Metabolic Panel [LAB.AMB] Time Frame: 3 Days, Location: None Selected Activity/Diet/Wound Care/Special Instructions: Activity as tolerated Diet heart healthy increase fluid intake to aid with acute kidney injury Metformin, Januvia and lisinopril hydrochlorothiazide currently on hold due to acute kidney injury. Patient to follow-up with PCP in regards to restarting these medications. Patient to follow-up with his PCP. Repeat CMP ordered for 3 days
[2018-04-15 15:54] VITALS: BP 110/60; PULSE 60; TEMP 98.5
== END 2018-04-15 16:53 | disposition home or self-care (01) ==
LOC: EC 14:31 → 3SCARD 17:07
PROVIDERS: ADMIT Internal Medicine; ATTEND Internal Medicine
DX: R07.2 Precordial pain (principal); M25.511 Pain in right shoulder; M25.512 Pain in left shoulder; R74.9 Abnormal serum enzyme level, unspecified; R77.8 Other specified abnormalities of plasma proteins; J90 Pleural effusion, not elsewhere classified; R17 Unspecified jaundice; J44.9 Chronic obstructive pulmonary disease, unspecified; I48.0 Paroxysmal atrial fibrillation; E11.9 Type 2 diabetes mellitus without complications; K21.9 Gastro-esophageal reflux disease without esophagitis; I10 Essential (primary) hypertension; Z87.01 Personal history of pneumonia (recurrent); N17.9 Acute kidney failure, unspecified; Z87.891 Personal history of nicotine dependence; E03.9 Hypothyroidism, unspecified; G47.30 Sleep apnea, unspecified; E78.5 Hyperlipidemia, unspecified; I45.10 Unspecified right bundle-branch block; N42.9 Disorder of prostate, unspecified; M54.9 Dorsalgia, unspecified; N40.0 Benign prostatic hyperplasia without lower urinary tract symptoms; Z86.73 Personal history of transient ischemic attack (TIA), and cerebral infarction without residual deficits; H40.9 Unspecified glaucoma; Z80.9 Family history of malignant neoplasm, unspecified; Z79.899 Other long term (current) drug therapy; Z79.01 Long term (current) use of anticoagulants; Z79.84 Long term (current) use of oral hypoglycemic drugs; Z79.890 Hormone replacement therapy; E66.9 Obesity, unspecified; Z68.30 Body mass index [BMI] 30.0-30.9, adult
CPT/HCPCS: 96376; 96361; 96374; 99285; 36415; 94640 ×2; 94760; 93005; 83880; 80061; 80053 ×3; 82550 ×2; 82553 ×2; 83735; 84484 ×2; 85025 ×2; 85610; 85730; 81001; 83036; 71046; 71275; 74174; G0378 ×3; C8929; J2270; J1885; Q9950; Q9967; 93306

== ENCOUNTER 2018-04-26 01:52 | Emergency (ER) | payer MEDICARE, OTHER ==
[2018-04-26 02:19] VITALS: TEMP 98
[2018-04-26] MEDS ORDERED: LORazepam 2 MG/ML INJ IV STA (02:43)
--- NOTE | 2018-04-26 02:48 | ED ---
General Adult HPI - General Source: EMS Mode of arrival: EMS Limitations: no limitations <Noemi Daily - Last Filed: 04/26/18 03:53> <Bonnie Waggoner - Last Filed: 04/26/18 08:00> - General Chief complaint: Anxiety Stated complaint: Unable to sleep Time Seen by Provider: 04/26/18 02:34 - History of Present Illness Initial comments: 83-year-old male patient presents to the emergency department today reporting inability to sleep. States that he had a cardiac ablation for atrial flutter on 04/11/2018. States that he has been having difficulty sleeping since. States that he has been to see his loan funder and his primary care physician. States all his tests are kind back normal and his primary care doctor did prescribe him a sleeping pill. States he did take that medication is eating however did not help. Patient states he feels quite tired and would like medication to help him sleep. He denies any current physical symptoms or concerns. Denies any chest pain, shortness of breath, palpitations, racing heart, nausea, vomiting, abdominal pain, back pain, dizziness, or weakness. States his only concern is that he cannot sleep. Patient denies any recent rash , shortness breath, chest pain, diarrhea, constipation, back pain, numbness, tingling, hematuria, dysuria, urinary urgency, urinary frequency, headache, visual changes, or any other complaints. (Noemi Daily) - Related Data Home Medications Medication Instructions Recorded Confirmed Fluticasone/Salmeterol [Advair 1 puff INHALATION RT-BID 03/31/15 04/13/18 250-50 Diskus] Montelukast [Singulair] 10 mg PO DAILY 03/31/15 04/13/18 Omeprazole [PriLOSEC] 20 mg PO DAILY 03/31/15 04/13/18 Rivaroxaban [Xarelto] 20 mg PO PC-SUPPER 03/31/15 04/13/18 Amiodarone HCl [Pacerone] 100 mg PO DAILY 03/01/18 04/13/18 Cholecalciferol [Vitamin D3] 1,000 unit PO DAILY 03/01/18 04/13/18 Multivitamins, Thera [Multivitamin 1 tab PO DAILY 03/01/18 04/13/18 (formulary)] [place]-3 Fatty Acids [[place]-3] 1,000 mg PO DAILY 03/01/18 04/13/18 Opti Florecita 1 tab PO DAILY 03/01/18 04/13/18 Oxybutynin Chloride [Ditropan] 10 mg PO DAILY 03/01/18 04/13/18 Ranitidine HCl [Zantac] 150 mg PO DAILY 03/01/18 04/13/18 Sildenafil Citrate [Viagra] 100 mg PO ONCE PRN 03/01/18 04/13/18 Simvastatin [Zocor] 20 mg PO HS 03/01/18 04/13/18 Tamsulosin HCl [Flomax] 0.4 mg PO HS 03/01/18 04/13/18 Betamethasone Dipropionate 2 inch NASAL BID PRN 03/03/18 04/13/18 [Betamethasone Dipropionate 0.05%] Timolol 0.5% Ophth Soln [Timoptic 1 drop BOTH EYES DAILY 03/03/18 04/13/18 0.5% Ophth Soln] Travoprost [Travatan Z 0.004%] 1 drop LEFT EYE HS 03/03/18 04/13/18 Metoprolol Succinate (ER) [Toprol 50 mg PO DAILY 04/13/18 04/13/18 XL] Previous Rx's Medication Instructions Recorded Levothyroxine Sodium [Synthroid] 75 mcg PO DAILY #30 tab 03/04/18 LORazepam [Ativan] 1 mg PO HS 3 Days #3 tab 04/26/18 Allergies Allergy/AdvReac Type Severity Reaction Status Date / Time No Known Allergies Allergy Verified 04/26/18 02:19 Review of Systems ROS Other: All systems not noted in ROS Statement are negative. <Noemi Daily M - Last Filed: 04/26/18 03:53> ROS Other: All systems not noted in ROS Statement are negative. <Bonnie Waggoner - Last Filed: 04/26/18 08:00> ROS Statement: Those systems with pertinent positive or pertinent negative responses have been documented in the HPI. Past Medical History Past Medical History: Atrial Fibrillation, Asthma, COPD, Diabetes Mellitus, Eye Disorder, GERD/Reflux, Hyperlipidemia, Hypertension, Pneumonia, Prostate Disorder, Sleep Apnea/CPAP/BIPAP, Thyroid Disorder Additional Past Medical History / Comment(s): MIN Back pain. Hx of lt wrist fx- no sx just casted. Glaucoma lt eye, Past Stroke behind rt eye, "i have a blotch in the middle of my vision." BPH. Past deviated septum, chronic sinusitis-(sx done). AFIB. SEE DR Rodriguez WAITING FOR CPAP. History of Any Multi-Drug Resistant Organisms: None Reported Past Surgical History: Adenoidectomy, Back Surgery, Hernia Repair, Orthopedic Surgery, Tonsillectomy Additional Past Surgical History / Comment(s): Mastoidectomy Rt ear, Septoplasty, TURP, stevo cataracts-lens implants, colonoscopy, vasectomy, Cardioversion (01/2018 when in [place]-for afib), lt thumb trigger finger sx, rt thumb 2nd, 3rd finger trigger finger sx. STEVO ING HERNIA. Past Anesthesia/Blood Transfusion Reactions: No Reported Reaction Past Psychological History: No Psychological Hx Reported Smoking Status: Former smoker Past Alcohol Use History: Rare Past Drug Use History: None Reported - Past Family History Sister(s) Family Medical History: Cancer <Noemi Daily - Last Filed: 04/26/18 03:53> General Exam Limitations: no limitations General appearance: alert, in no apparent distress, other (This is a well- developed, well-nourished elderly male patient in no acute distress. Vital signs upon presentation are temperature 98.0F, pulse 68, respirations 18, blood pressure 105/59, pulse ox 98% on room air.) Eye exam: Present: normal appearance, PERRL, EOMI. Absent: scleral icterus, conjunctival injection, periorbital swelling Respiratory exam: Present: normal lung sounds bilaterally. Absent: respiratory distress, wheezes, rales, rhonchi, stridor Cardiovascular Exam: Present: regular rate, normal rhythm, normal heart sounds. Absent: systolic murmur, diastolic murmur, rubs, gallop, clicks GI/Abdominal exam: Present: soft, distended, normal bowel sounds. Absent: tenderness, guarding, rebound, rigid Neurological exam: Present: alert, oriented X3, CN II-XII intact Psychiatric exam: Present: normal affect, normal mood Skin exam: Present: warm, dry, intact, normal color. Absent: rash <Noemi Daily - Last Filed: 04/26/18 03:53> Vital Signs 01/29/19 01/29/19 02:15 04:05 Temperature 98 F Pulse Rate 68 60 Respiratory 18 20 Rate Blood Pressure 105/59 100/66 O2 Sat by Pulse 98 95 Oximetry Medical Decision Making <Noemi Daily - Last Filed: 04/26/18 03:53> <Bonnie Waggoner - Last Filed: 04/26/18 08:00> - Medical Decision Making 83-year-old male patient presents to the emergency department today requesting medication to help him sleep. Patient has been having difficulty with insomnia since having an ablation 2 weeks ago. Patient denies any other physical concerns or symptoms. States he is only here for medication help him sleep. He has been evaluated by both his loan funder and his primary care physician since the procedure, states all his testing has been normal. Patient was given 1 mg of Ativan here in the emergency department. Upon reevaluation patient is drowsy and snoozing in the room. We will discharge patient at this time to get home to use his CPAP machine. He'll be given a prescription for the Ativan to take. He is instructed to follow up with his primary care physician for recheck as soon as possible. Return parameters discussed in detail. He verbalizes understanding and agrees with this plan. (Noemi Daily) I was available for consultation in the emergency department. The history and physical exam were done by the midlevel provider. I was consulted for this patient's care. I reviewed the case with the midlevel provider and based on their presentation of the patient, I agree with the assessment, medical decision making and plan of care as documented. (Bonnie Waggoner) Disposition Is patient prescribed a controlled substance at d/c from ED?: No Time of Disposition: 03:41 <Noemi Daily - Last Filed: 04/26/18 03:53> <Bonnie Waggoner - Last Filed: 04/26/18 08:00> Clinical Impression: Insomnia Disposition: HOME SELF-CARE Condition: Good Instructions (If sedation given, give patient instructions): Insomnia (ED) Additional Instructions: Take medication as directed. Follow up with Dr. Simth in the morning. Return to the emergency department immediately for any new, worsening, or concerning symptoms. Prescriptions: LORazepam [Ativan] 1 mg PO HS 3 Days #3 tab Referrals: Radha Smith DO [Primary Care Provider] - 1-2 days
[2018-04-26 04:13] VITALS: BP 100/66; PULSE 60; RESP 20
== END 2018-04-26 04:13 | disposition home or self-care (01) ==
LOC: EC 01:52
DX: G47.00 Insomnia, unspecified (principal); R14.0 Abdominal distension (gaseous); J44.9 Chronic obstructive pulmonary disease, unspecified; I48.91 Unspecified atrial fibrillation; E78.5 Hyperlipidemia, unspecified; I10 Essential (primary) hypertension; K21.9 Gastro-esophageal reflux disease without esophagitis; N40.0 Benign prostatic hyperplasia without lower urinary tract symptoms; H40.9 Unspecified glaucoma; Z87.891 Personal history of nicotine dependence; Z79.01 Long term (current) use of anticoagulants; Z79.51 Long term (current) use of inhaled steroids; Z79.899 Other long term (current) drug therapy; Z87.01 Personal history of pneumonia (recurrent); Z86.79 Personal history of other diseases of the circulatory system; Z98.890 Other specified postprocedural states
CPT/HCPCS: 99284; 96374; J2060

== ENCOUNTER 2018-06-16 11:54 | Day surgery (SDC) | payer MEDICARE, OTHER ==
[2018-06-14 12:00] VITALS: BMI 26.9
[~2018-06-16 11:54] MED LIST: ONDANSETRON 4 MG/2 ML VIAL IVP PRN
[2018-06-16] MEDS: SODIUM CHLORIDE 0.9% 1,000 ML IV SCH (13:03)
[2018-06-16 13:05] LABS: Glucose,Whole Blood 126 mg/dL (75-99)
[2018-06-16] MEDS ORDERED: PROTAMINE SULFATE 10 MG/ML 5 ML VIAL IV ONE (14:44)
[2018-06-16] MEDS ORDERED: PROPOFOL 10 MG/ML 20 ML VIAL IV ONE (14:44)
[2018-06-16] MEDS ORDERED: fentaNYL (PF) 50 MCG/ML 2 ML AMP ONE (14:44)
[2018-06-16] MEDS ORDERED: ePHEDrine SULFATE/0.9% NACL/PF 50 MG/5 ML SYRINGE IV ONE (14:44)
[2018-06-16] MEDS ORDERED: HEPARIN SODIUM,PORCINE 10,000 UNIT/ML 1 ML VIAL ONE (14:44)
[2018-06-16] MEDS ORDERED: SUCCINYLCHOLINE CHLORIDE 100 MG/5 ML SYR IV ONE (14:44)
[2018-06-16] MEDS ORDERED: PHENYLEPHRINE-0.9% NACL SYG 1 MG/10 ML SYRINGE ONE (14:44)
[2018-06-16] MEDS ORDERED: LIDOCAINE 1% INJ 10MG/ML (20 ML MDV) ONE ×2 (14:44→15:13)
[2018-06-16] MEDS ORDERED: LIDOCAINE 1% INJ 10MG/ML (20 ML MDV) SQ ONE (15:24)
[2018-06-16] MEDS ORDERED: HEPARIN SOD,PORK IN 0.45% NACL 25,000 UNIT in 0.45% NACL 1 250ML.BAG IV ONE (15:42)
[2018-06-16] MEDS ORDERED: LACTATED RINGERS 1,000 ML IV ONE (16:00)
[2018-06-16] MEDS ORDERED: HYDROcodone/APAP 5-325MG 1 EACH TAB PO PRN (17:31)
[2018-06-16] MEDS ORDERED: ACETAMINOPHEN TAB 325 MG TAB PO PRN (17:31)
--- NOTE | 2018-06-16 17:45 | P.PCN ---
Preoperative Diagnosis: Diagnosis Atrial fibrillation, symptomatic, refractory to therapy Persistent A. fib Result Successful pulmonary vein isolation of all veins using cryo-ablation Complete entrance block in all 4 veins confirmed No evidence for phrenic nerve injury Esophageal deflection YES Electrical cardioversion with a synchronized shock across the chest NO Procedure details Patient was brought to the EP lab in a fasting state. Written informed consent was obtained prior to the procedure. Procedure performed under general anesthesia After initial muscle relaxant use, muscle relaxants were not given thereafter in order to assess phrenic nerve during procedure. Patient prepped and draped as per protocol Full cryo-set up with standard preparation of the cryoablation tools done. Femoral Venous access obtained on the right and left groins Venous and arterial Sheaths placed. Diagnostic catheters for the high right atrium, phrenic nerve stimulation and pacing, His bundle, RV and coronary sinus placed Intracardiac echo catheter placed. Long sheath placed in the right atrium Left and right transseptal catheterization performed under intracardiac echo guidance. Intravenous heparin with aCT above 300 Later, catheter positioning and balloon positioning in the left atrium, under intracardiac echo guidance Diagnostic EP study with Drug infusion Coronary sinus pacing and recording Baseline measurements Sinus cycle length 967 ms, QRS 89 ms, OH interval 142 ms, QT interval 480 ms AH 80 ms, HV 59 ms Atrial pacing performed from the high right atrium and the coronary sinus RV pacing AV node Wenckebach block 410 ms VA Wenckebach block greater than 500 ms Sinus recovery times at a pacing cycle length of 500 ms was 1035 ms Transseptal catheterization performed RA pressure 13/4/9 LA pressure 27/2/13 Transseptal catheterization performed with standard sheath. The cryoablation sheath was then placed with an over the wire exchange without any acute complications. All 4 pulmonary veins were isolated in the following sequence: Left superior followed by left inferior followed by right superior followed by right inferior The cryo-ablation balloon was placed at the os of each vein 1.5 mL of IV dye was injected to confirm an occluded vein Goal during cryoablation was to achieve complete occlusion of the pulmonary vein, achieve -30 degrees C at 30 seconds and achieve -40 degrees C at 60 seconds and a time to effect of less than 60-90 seconds, . If not the balloon was repositioned to obtain this result After completion of Cryoblation with durations from 180-240 seconds, entrance block was confirmed with the Attain circular catheter in a roving fashion around the antrum of the pulmonary veins Phrenic nerve pacing was performed from the SVC, right innominate vein area and diaphragm voltage was monitored. Diaphragmatic contractions were also monitored manually for strength of contraction. Parameter goals for each cryo freeze Complete occlusion of the appropriate vein -30 degrees C by 30 seconds -40 degrees C by 60 seconds Minimum between minus 40-55 degrees C Thaw time greater than 10 seconds Balloon visualized by intracardiac echo The esophagus was intubated. Esophageal Temperature monitoring with a CIRCA catheter formed. Esophageal deflection for hypothermia of the esophagus below 30 degrees C Left superior pulmonary vein Complete isolation, entrance block Left inferior pulmonary vein Complete isolation, entrance block Right superior pulmonary vein, during phrenic nerve pacing Complete isolation, entrance block Right inferior pulmonary vein, during phrenic nerve pacing Complete isolation, entrance block At the end of the procedure the Achieve catheter was once again used to check for entrance block Phrenic nerve stimulation was performed to confirm diaphragmatic stimulation the end of the procedure Cine fluoroscopy was performed at the very end of the procedure to confirm movement of both diaphragms with inspiration and expiration At the end of the procedure the patient was extubated Heparin was reversed Venous sheaths were removed and hemostasis assured Procedures performed (PVI - CRYO Ablation) Diagnostic EP study CS pacing and recording Left and right transseptal catheterization Catheter the mapping of the tachycardia (NOT 3D mapping) Intracardiac echocardiography Pulmonary vein isolation with transseptal and comprehensive EPS, [address] Anesthesia: GETA Condition: stable
--- NOTE | 2018-06-16 17:46 | P.PRLE ---
RE: Jason Stinson Dear Radha Jason underwent successful pulmonary vein isolation with cryoablation Complete isolation of all 4 pulmonary veins were demonstrated He is already undergone successful atrial flutter ablation line I will decrease the dose of amiodarone 2 200 mg by mouth daily and he will continue Xarelto lifelong All his other medications remain unchanged Thank you for entrusting me with the care of the patient Warm regards Sincerely Eduard Perrin
[2018-06-16] MEDS ORDERED: IOPAMIDOL-370 100ML BTL INJ ONE (17:51)
[2018-06-16] MEDS ORDERED: ACETAMINOPHEN IV (For NPO) 1,000 MG in EMPTY BAG 1 BAG IVPB ONE (18:00)
[2018-06-16] MEDS: LACTATED RINGERS 1,000 ML IV SCH ×2 (19:46→23:34)
[2018-06-16 20:24] LABS: Glucose,Whole Blood 125 mg/dL (75-99)
[2018-06-16] MEDS ORDERED: LATANOPROST 0.005% OPHTH DROPS 2.5 ML BTL LEFT EYE SCH (21:00)
[2018-06-16] MEDS ORDERED: ATORVASTATIN 10 MG TAB PO SCH (21:00)
[2018-06-16] MEDS ORDERED: DOXAZOSIN 2 MG TAB PO SCH (21:00)
[2018-06-17] MEDS: SODIUM CHLORIDE 0.9% 1,000 ML IV SCH (03:11)
[2018-06-17] MEDS ORDERED: LEVOTHYROXINE 50 MCG TAB PO SCH (06:30)
[2018-06-17 06:47] LABS: Glucose,Whole Blood 150 mg/dL (75-99)
--- NOTE | 2018-06-17 08:07 | P.DS ---
Providers Attending physician: Eduard Perrin Primary care physician: [facility] Course: Patient is resting comfortably in bed. His groins of healed well. The sutures removed. No bleeding overnight No chest discomfort dizziness lightheadedness or palpitations Twelve-lead ECG shows sinus rhythm normal VA interval narrow QRS normal ST segments Breath sounds are clear no rhonchi no crackles Heart sounds are normal with a soft systolic murmur at the apex Abdomen soft nontender Extremities warm no edema Mucosa moist Impression Persistent atrial fibrillation status post pulmonary vein isolation, cryoablation Suggest Reduce amiodarone to 200 mg by mouth daily Continue all other medications including anticoagulation Follow-up in the office in about 2 weeks Discharge home by 5 PM today hemodynamic stable and groins healing well Plan - Discharge Summary Discharge Rx Participant: Yes New Discharge Prescriptions: New Amiodarone [Cordarone] 200 mg PO DAILY #90 tab Discontinued Amiodarone [Cordarone] 200 mg PO BID No Action Montelukast [Singulair] 10 mg PO DAILY Fluticasone/Salmeterol [Advair 250-50 Diskus] 1 puff INHALATION BID Rivaroxaban [Xarelto] 20 mg PO W/SUPPER Omeprazole [PriLOSEC] 20 mg PO DAILY [place]-3 Fatty Acids [[place]-3] 1,000 mg PO DAILY Cholecalciferol [Vitamin D3] 1,000 unit PO DAILY Multivitamins, Thera [Multivitamin (formulary)] 1 tab PO DAILY Sildenafil Citrate [Viagra] 100 mg PO DIRECTED PRN PRN 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 Tamsulosin HCl [Flomax] 0.4 mg PO Q48H Simvastatin [Zocor] 20 mg PO HS Timolol 0.5% Ophth Soln [Timoptic 0.5% Ophth Soln] 1 drop BOTH EYES DAILY Travoprost [Travatan Z 0.004%] 1 drop LEFT EYE HS Betamethasone Dipropionate [Betamethasone Dipropionate 0.05%] 2 inch NASAL BID PRN PRN Reason: NASAL INFECTIONS sitaGLIPtin [Januvia] 100 mg PO DAILY Nasal Rinse 1 applicate NASAL BID Metoprolol Succinate [Toprol Xl] 100 mg PO DAILY metFORMIN HCL [Glucophage] 250 mg PO QAM Lisinopril-Hctz 20-12.5 mg [Zestoretic 20-12.5] 0.5 tab PO DAILY Furosemide [Lasix] 20 mg PO DAILY Cetirizine HCl [Zyrtec] 10 mg PO DAILY LORazepam [Ativan] 1 mg PO HS Terazosin [Hytrin] 2 mg PO HS Ranitidine HCl [Zantac] 150 mg PO DAILY Levothyroxine Sodium [Synthroid] 50 mcg PO DAILY Spironolactone [Aldactone] 12.5 mg PO DAILY Discharge Medication List Fluticasone/Salmeterol [Advair 250-50 Diskus] 1 puff INHALATION BID 03/31/15 [History] Montelukast [Singulair] 10 mg PO DAILY 03/31/15 [History] Omeprazole [PriLOSEC] 20 mg PO DAILY 03/31/15 [History] Rivaroxaban [Xarelto] 20 mg PO W/SUPPER 03/31/15 [History] Cholecalciferol [Vitamin D3] 1,000 unit PO DAILY 03/01/18 [History] Multivitamins, Thera [Multivitamin (formulary)] 1 tab PO DAILY 03/01/18 [History] [place]-3 Fatty Acids [[place]-3] 1,000 mg PO DAILY 03/01/18 [History] Sildenafil Citrate [Viagra] 100 mg PO DIRECTED PRN 03/01/18 [History] Simvastatin [Zocor] 20 mg PO HS 03/01/18 [History] Tamsulosin HCl [Flomax] 0.4 mg PO Q48H 03/01/18 [History] Betamethasone Dipropionate [Betamethasone Dipropionate 0.05%] 2 inch NASAL BID PRN 03/03/18 [History] Timolol 0.5% Ophth Soln [Timoptic 0.5% Ophth Soln] 1 drop BOTH EYES DAILY 03/03/18 [History] Travoprost [Travatan Z 0.004%] 1 drop LEFT EYE HS 03/03/18 [History] Cetirizine HCl [Zyrtec] 10 mg PO DAILY 06/01/18 [History] Furosemide [Lasix] 20 mg PO DAILY 06/01/18 [History] Lisinopril-Hctz 20-12.5 mg [Zestoretic 20-12.5] 0.5 tab PO DAILY 06/01/18 [History] Metoprolol Succinate [Toprol Xl] 100 mg PO DAILY 06/01/18 [History] Nasal Rinse 1 applicate NASAL BID 06/01/18 [History] metFORMIN HCL [Glucophage] 250 mg PO QAM 06/01/18 [History] sitaGLIPtin [Januvia] 100 mg PO DAILY 06/01/18 [History] LORazepam [Ativan] 1 mg PO HS 06/02/18 [History] Levothyroxine Sodium [Synthroid] 50 mcg PO DAILY 06/14/18 [History] Ranitidine HCl [Zantac] 150 mg PO DAILY 06/14/18 [History] Spironolactone [Aldactone] 12.5 mg PO DAILY 06/14/18 [History] Terazosin [Hytrin] 2 mg PO HS 06/14/18 [History] Amiodarone [Cordarone] 200 mg PO DAILY #90 tab 06/16/18 [Rx] Activity/Diet/Wound Care/Special Instructions: Post EP study - Ablation instructions 1. Keep access sites dry for 2 days. 2. No heavy lifting or straining for 2 days. 3. Avoid bending the hips repeatedly for 2 days. 4. You may go up and down stairs slowly Call if the following is noted 1. Bleeding, increasing swelling or pain at the access sites. 2. Increasing chest discomfort, especially upon taking a deep breath. 3. Increasing shortness of breath, at rest or with exertion. 4. Undue cough / phlegm 5. Difficulty or pain while swallowing. 6. Pain or change in color in the extremities. 7. Fever, chills, rigors. 8. Increasing headache or neurologic symptoms. 9. Dizziness, fainting, palpitations Reduce amiodarone to 200 mg by mouth daily continue all other medications including xarelto Groin check within 1-2 weeks Discharge Disposition: HOME SELF-CARE
[2018-06-17] MEDS ORDERED: FUROSEMIDE 20 MG TAB PO SCH (09:00)
[2018-06-17] MEDS ORDERED: LINAGLIPTIN 5 MG TABLET PO SCH (09:00)
[2018-06-17] MEDS ORDERED: MONTELUKAST 10 MG TAB PO SCH (09:00)
[2018-06-17] MEDS ORDERED: METOPROLOL SUCCINATE (ER) 100 MG TAB.ER.24H PO SCH (09:00)
[2018-06-17] MEDS ORDERED: LISINOPRIL-HCTZ 20-12.5 MG 1 EACH TAB PO SCH (09:00)
[2018-06-17] MEDS ORDERED: TAMSULOSIN 0.4 MG CAP.ER.24H PO SCH (09:00)
[2018-06-17] MEDS ORDERED: AMIODARONE 200 MG TAB PO SCH (09:00)
[2018-06-17] MEDS ORDERED: SPIRONOLACTONE 25 MG TAB PO SCH (09:00)
[2018-06-17 11:51] LABS: Glucose,Whole Blood 126 mg/dL (75-99)
[2018-06-17 12:00] VITALS: BP 121/70; PULSE 66; RESP 18; TEMP 97.4
[2018-06-17] MEDS: LACTATED RINGERS 1,000 ML IV SCH (12:08)
[2018-06-17] MEDS ORDERED: RIVAROXABAN 20 MG TAB PO SCH (17:30)
== END 2018-06-17 16:30 | disposition home or self-care (01) ==
LOC: CATHEP 11:54 → 1SOBS 17:27 → CATHEP 06-17 16:30
PROVIDERS: ATTEND Internal Medicine Clinical Cardiac Electrophysiology
DX: I48.1 Persistent atrial fibrillation (principal); E11.9 Type 2 diabetes mellitus without complications; I10 Essential (primary) hypertension; E78.5 Hyperlipidemia, unspecified; E78.00 Pure hypercholesterolemia, unspecified; N28.9 Disorder of kidney and ureter, unspecified; K21.9 Gastro-esophageal reflux disease without esophagitis; E07.9 Disorder of thyroid, unspecified; Z79.01 Long term (current) use of anticoagulants; Z79.84 Long term (current) use of oral hypoglycemic drugs; Z79.890 Hormone replacement therapy; Z79.899 Other long term (current) drug therapy; Z72.0 Tobacco use; Z82.49 Family history of ischemic heart disease and other diseases of the circulatory system; Z79.51 Long term (current) use of inhaled steroids
CPT/HCPCS: 85347; 93662; 93609; 93656; C1769 ×4; C1894 ×2; C1730 ×3; C1759; C1893; C1733; C1766; J2720; J1644 ×2; J2001; J3010; J2370; J0330; J2704; Q9967

== ENCOUNTER → 2020-03-18 | Outpatient (CLI) | payer MEDICARE, OTHER ==
[2020-03-18 13:38] VITALS: BP 174/5; PULSE 65; RESP 18; TEMP 97.5
--- NOTE | 2020-03-18 14:08 | P.PAINCN ---
History of Present Illness - Reason for Consult Consult date: 03/18/20 - History of Present Illness Assessment it is years old male with a chronic history of severe low back pain, vision had the lumbar laminectomy and fusion surgery done in 2001 and he did fairly well until 2007 when he started complaining of severe low back pain, the pain is constant and increases with any activity interfering with the quality of life with a fairly radiated to the lower extremity, he was treated previously by Dr. Cheung at [facility], and he had RFA of the medial branch lumbar area, which helped his low back pain significantly, the last RFA done in March 2019, and he did very well after the radiofrequency, currently is complaining of severe low back pain, which is increased with any activity, he denies any motor or sensory deficit, he denies any fever or night sweats, Past Medical History Past Medical History: Atrial Fibrillation, Asthma, COPD, Diabetes Mellitus, Eye Disorder, GERD/Reflux, Hyperlipidemia, Hypertension, Pneumonia, Prostate Disorder, Sleep Apnea/CPAP/BIPAP, Thyroid Disorder Additional Past Medical History / Comment(s): MIN Back pain. Hx of lt wrist fx- no sx just casted. Glaucoma lt eye, Past Stroke behind rt eye, "i have a blotch in the middle of my vision." BPH. Past deviated septum, chronic sinusitis-(sx done). AFIB. SEE DR Rodriguez WAITING FOR CPAP. History of Any Multi-Drug Resistant Organisms: None Reported Past Surgical History: Adenoidectomy, Back Surgery, Hernia Repair, Orthopedic Surgery, Tonsillectomy Additional Past Surgical History / Comment(s): Mastoidectomy Rt ear, Septoplasty, TURP, stevo cataracts-lens implants, colonoscopy, vasectomy, Cardioversion (01/2018 when in [place]-for afib), lt thumb trigger finger sx, rt thumb 2nd, 3rd finger trigger finger sx. STEVO ING HERNIA. Past Anesthesia/Blood Transfusion Reactions: No Reported Reaction Past Psychological History: No Psychological Hx Reported Additional Psychological History / Comment(s): lives with .pt is independant served in the [employer], has worked for [employer], [employer], and a [employer] Smoking Status: Former smoker Past Alcohol Use History: Rare Additional Past Alcohol Use History / Comment(s): SMOKED AGE 17, QUIT 1972, 4 PPD. Past Drug Use History: None Reported - Past Family History Sister(s) Family Medical History: Cancer Medications and Allergies Home Medications Medication Instructions Recorded Confirmed Type Fluticasone/Salmeterol [Advair 1 puff INHALATION BID 03/31/15 03/18/20 History 250-50 Diskus] Montelukast [Singulair] 10 mg PO DAILY 03/31/15 03/18/20 History Omeprazole [PriLOSEC] 20 mg PO DAILY 03/31/15 03/18/20 History Rivaroxaban [Xarelto] 20 mg PO W/SUPPER 03/31/15 03/18/20 History Cholecalciferol [Vitamin D3 (25 1,000 unit PO DAILY 03/01/18 03/18/20 History Mcg = 1000 Iu)] Multivitamins, Thera [Multivitamin 1 tab PO DAILY 03/01/18 03/18/20 History (formulary)] [place]-3 Fatty Acids [[place]-3] 1,000 mg PO DAILY 03/01/18 03/18/20 History Sildenafil Citrate [Viagra] 100 mg PO DIRECTED PRN 03/01/18 03/18/20 History Simvastatin [Zocor] 20 mg PO HS 03/01/18 03/18/20 History Tamsulosin HCl [Flomax] 0.4 mg PO Q48H 03/01/18 03/18/20 History Betamethasone Dipropionate 2 inch NASAL BID PRN 03/03/18 03/18/20 History [Betamethasone Dipropionate 0.05%] Timolol 0.5% Ophth Soln [Timoptic 1 drop BOTH EYES DAILY 03/03/18 03/18/20 History 0.5% Ophth Soln] Travoprost [Travatan Z 0.004%] 1 drop LEFT EYE HS 03/03/18 03/18/20 History Cetirizine HCl [Zyrtec] 10 mg PO DAILY 06/01/18 03/18/20 History Furosemide [Lasix] 20 mg PO DAILY 06/01/18 03/18/20 History Lisinopril-Hctz 20-12.5 mg 0.5 tab PO DAILY 06/01/18 03/18/20 History [Zestoretic 20-12.5] Metoprolol Succinate [Toprol Xl] 100 mg PO DAILY 06/01/18 03/18/20 History Nasal Rinse 1 applicate NASAL BID 06/01/18 03/18/20 History metFORMIN HCL [Glucophage] 250 mg PO QAM 06/01/18 03/18/20 History sitaGLIPtin [Januvia] 100 mg PO DAILY 06/01/18 03/18/20 History LORazepam [Ativan] 1 mg PO HS 06/02/18 03/18/20 History Levothyroxine Sodium [Synthroid] 50 mcg PO DAILY 06/14/18 03/18/20 History Ranitidine HCl [Zantac] 150 mg PO DAILY 06/14/18 03/18/20 History Spironolactone [Aldactone] 12.5 mg PO DAILY 06/14/18 03/18/20 History Terazosin [Hytrin] 2 mg PO HS 06/14/18 03/18/20 History Amiodarone [Cordarone] 200 mg PO DAILY #90 tab 06/16/18 03/18/20 Rx Allergies Allergy/AdvReac Type Severity Reaction Status Date / Time No Known Allergies Allergy Verified 06/16/18 12:23 Physical Exam Vitals: Vital Signs Temp Pulse Resp BP Pulse Ox 03/18/20 13:30 97.5 F L 65 18 174/5 96 Intake and Output 03/17/20 03/18/20 03/18/20 22:59 06:59 14:59 Other: Weight 95.708 kg Physical Examinations : -Constitutiona : Cooperative , not in acute distress . -HEENT : nech : supple , no Lymphadenopathy , normal thyroid size . : eyes : no ptosis , no icterus, no photophobia . - neurologic : Cranial nerve II to XII intact , no focal neurological deffecit . -psychatric : alert , oriented X 3 , appropriate affect , intact judgment and insight . -Lymphatic : no Lymphadenopathy . - musculoskeltal : Lumber spine moter stegnth lower extremities ,thigh and legs 5/5 Right side , 5/5 Left side deep tendon reflexes : normal Knee Jerk , normal ankle Jerk lumber facet Loading Test =positive Right , positive Left Range of motion of the lumbar spine Flexion 30 degrees, extension 10 degrees strait leg raising test = positive at 60 degree on the right side, negative on the left side Fabere test= positive Right , and positive LT . Sever tenderness over the Sacroiliac joint on the Right , and Left sides Gaenslen test= positive right ,and positive left . Seated flexion test= positive right ,and positive Left . Results Comments: MRI of the lumbar spine= multilevel lumbar degenerative disc disease and L2-3 disc herniation multilevel foraminal stenosis and decompressive laminectomy at L4 5 Assessment and Plan Plan: Assessment and plan=1-lumbar spondylosis with lumbar facet arthropathy without myelopathy. 2-lumbar foraminal stenosis. 3-postlaminectomy pain syndrome, lumbar area. 4-atrial fibrillation (patient on XERALTO ) Patient had RFA of the medial branch lumbar area done in March 2019, and he had excellent pain relief, will be good candidate to have Repeat RFA of the medial branch lumbar area at L1, L2, L3 , L4 ,L5 bilaterally would do the right side first Patient had to hold Xarelto for 48 hours before the procedure Time with Patient: Greater than 30 PQRS Measure Charge Sheet Measure #130: Documentation of Current Meds in Medical Chart: Patient's medications documented in chart Measure #226: Tobacco Use: Screen & Cessation Intervention: Pt not a tobacco user Measure #111: Pneumonia Vaccination: Pneumococcal vaccine administered or previously received Measure #47: Advance Care Plan: Advance care planning discussed & documented, pt chose/unable to give Measure #412: Opioid Treatment Agreement: No documentation of signed opioid treatment agreement Measure #408: Opioid Therapy Follow-up Evaluation: Patient had NO f/u eval minimum every 3 months during opioid therapy Measure #317: Preventitive Care & Scrn High Bld Press & F/U: Pre-hypertensive or hypertensive BP documented, pt will f/u with PCP Measure #128: Body Mass Index (BMI) Screening & Follow-up: BMI documented ABOVE normal parameters - f/u documented Measure #131: Pain Assessment & Follow-up: Pain positive & plan documented Measure #431: Unhealthy Alcohol Use Preventative Care & Scrn: Patient not identified as an unhealthy alcohol user PQRS Narrative: Smoking Status Former smoker Blood Pressure 174/5 Pain Intensity [Bilateral 2 Lower Back] Scale Used Numeric (1 - 10) Hx Alcohol Use (MH) No Home Medications: Ambulatory Orders Fluticasone/Salmeterol [Advair 250-50 Diskus] 1 puff INHALATION BID 03/31/15 Montelukast [Singulair] 10 mg PO DAILY 03/31/15 Omeprazole [PriLOSEC] 20 mg PO DAILY 03/31/15 Rivaroxaban [Xarelto] 20 mg PO W/SUPPER 03/31/15 Cholecalciferol [Vitamin D3 (25 Mcg = 1000 Iu)] 1,000 unit PO DAILY 03/01/18 Multivitamins, Thera [Multivitamin (formulary)] 1 tab PO DAILY 03/01/18 [place]-3 Fatty Acids [[place]-3] 1,000 mg PO DAILY 03/01/18 Sildenafil Citrate [Viagra] 100 mg PO DIRECTED PRN 03/01/18 Simvastatin [Zocor] 20 mg PO HS 03/01/18 Tamsulosin HCl [Flomax] 0.4 mg PO Q48H 03/01/18 Betamethasone Dipropionate [Betamethasone Dipropionate 0.05%] 2 inch NASAL BID PRN 03/03/18 Timolol 0.5% Ophth Soln [Timoptic 0.5% Ophth Soln] 1 drop BOTH EYES DAILY 03/03/18 Travoprost [Travatan Z 0.004%] 1 drop LEFT EYE HS 03/03/18 Cetirizine HCl [Zyrtec] 10 mg PO DAILY 06/01/18 Furosemide [Lasix] 20 mg PO DAILY 06/01/18 Lisinopril-Hctz 20-12.5 mg [Zestoretic 20-12.5] 0.5 tab PO DAILY 06/01/18 Metoprolol Succinate [Toprol Xl] 100 mg PO DAILY 06/01/18 Nasal Rinse 1 applicate NASAL BID 06/01/18 metFORMIN HCL [Glucophage] 250 mg PO QAM 06/01/18 sitaGLIPtin [Januvia] 100 mg PO DAILY 06/01/18 LORazepam [Ativan] 1 mg PO HS 06/02/18 Levothyroxine Sodium [Synthroid] 50 mcg PO DAILY 06/14/18 Ranitidine HCl [Zantac] 150 mg PO DAILY 06/14/18 Spironolactone [Aldactone] 12.5 mg PO DAILY 06/14/18 Terazosin [Hytrin] 2 mg PO HS 06/14/18 Amiodarone [Cordarone] 200 mg PO DAILY #90 tab 06/16/18
== END | disposition home or self-care (01) ==
LOC: PNWHC3 13:13
PROVIDERS: ATTEND Specialist
DX: M48.061 Spinal stenosis, lumbar region without neurogenic claudication (principal); M47.816 Spondylosis without myelopathy or radiculopathy, lumbar region; M96.1 Postlaminectomy syndrome, not elsewhere classified; I48.91 Unspecified atrial fibrillation; E11.9 Type 2 diabetes mellitus without complications; J44.9 Chronic obstructive pulmonary disease, unspecified; E07.9 Disorder of thyroid, unspecified; J45.909 Unspecified asthma, uncomplicated; E78.5 Hyperlipidemia, unspecified; I10 Essential (primary) hypertension; K21.9 Gastro-esophageal reflux disease without esophagitis; G47.33 Obstructive sleep apnea (adult) (pediatric); Z99.89 Dependence on other enabling machines and devices; Z87.891 Personal history of nicotine dependence; Z79.891 Long term (current) use of opiate analgesic; Z79.899 Other long term (current) drug therapy; Z79.1 Long term (current) use of non-steroidal anti-inflammatories (NSAID); Z79.84 Long term (current) use of oral hypoglycemic drugs; Z79.890 Hormone replacement therapy
CPT/HCPCS: 99211

== ENCOUNTER 2020-04-19 06:21 | Day surgery (SDC) | payer MEDICARE, OTHER ==
[2020-04-17 10:21] VITALS: BMI 29.5
[~2020-04-19 06:21] MED LIST changes: +LACTATED RINGERS 1,000 ML IV SCH; -ONDANSETRON 4 MG/2 ML VIAL IVP PRN
[2020-04-19 07:10] VITALS: TEMP 97.9
[2020-04-19 07:21] LABS: Glucose,Whole Blood 154 mg/dL (75-99)
[2020-04-19] MEDS ORDERED: LIDOCAINE 1% (10MG/ML) FOR IV START INTRADERMA ONE (07:22)
[2020-04-19] MEDS ORDERED: methylPREDNISolone ACETATE 40 MG/ML 1 ML VIAL ONE (07:38)
[2020-04-19] MEDS ORDERED: PROPOFOL 10 MG/ML 20 ML VIAL IV ONE (07:38)
[2020-04-19] MEDS ORDERED: fentaNYL (PF) 50 MCG/ML 2 ML AMP ONE (07:38)
[2020-04-19] MEDS ORDERED: MIDAZOLAM 2 MG/2 ML VIAL ONE (07:38)
[2020-04-19] MEDS ORDERED: ROPIVACAINE 5MG/ML 20ML VIAL ONE (07:38)
--- NOTE | 2020-04-19 08:12 | P.PCN ---
Date of Procedure: 04/19/20 Procedure(s) Performed: PREOPERATIVE DIAGNOSIS: 1-Lumbar Spondylosis with Facet Arthropathy without myelopathy. 2- Lumber degenerative disc disease. 3-failed back surgery syndrome lumbar area. POSTOPERATIVE DIAGNOSIS: 1- Lumbar Spondylosis with Facet Arthropathy without myelopathy. 2- Lumber degenerative disc disease 3-failed back surgery syndrome lumbar area. PROCEDURES : Right Radiofrequency thermocoagulation L1 , L2 , L3 , and L5 medial branch, with fluoroscopic guidance (fluoroscopy images available in the radiology department) ( to denervate the facet joint at Right L2-3 , L3-4 , and L5-S1 levels ). ANESTHESIA: Monitored anesthesia care by anesthesia department. EBL: Minimal PROCEDURE INDICATION: The patient with low back pain secondary to lumbar facet arthropathy who had more than 50% relief of her pain with previous diagnostic lumbar medial branch block with bupivacaine. PROCEDURE DESCRIPTION / TECHNIQUE: The patient was seen and identified in the preoperative area. Risks, benefits, complications, including but not limited to risk of infection ,bleeding , allergic reactions to the medications and no complete pain releife , and alternatives were discussed with the patient, the patient agreed to proceed with the procedure and signed the consent. IV was started. Vital signs remained stable throughout the procedure. Patient was taken to the OR and time out was completed. The patient was placed in the prone position on the procedure table. The lumber area was prepped and draped in the usual sterile fashion. . Vital signs were closely monitored during the procedure .IV sedation was used during the procedure to decrease patients anxiety. Using AP and then oblique fluoroscopy, the ``eye of the Samuel dog corresponding to the connection between the superior and transverse articular processes of right L1, L2 , L3, and L5 were identified, marked, and localized with 1% lidocaine. Subsequently, a 18 [id number] radiofrequency cannula with a 10-mm active tip was advanced guided by fluoroscopy to each of the``eyes of the Samuel dog at right L1, L2 , L3, , and L5. Each site then underwent sensory testing at 50 Hz and 0 to 1 volt and motor testing at 2.5 Hz and 0 to 3 volt with local stimulation, but no radicular symptoms down the legs. Thereafter each sites underwent radiofrequency thermocoagulation at 80 degrees celsius for 90 seconds after injecting 0.5 ml of PF Ropivacaine 1ml, then after the thermocoagulation done , 1 ml of the block solution containing Depo-Medrol 40 mg and 4 ml of Ropivacaine 0.5% was injected at the rightL1,L2 , L3 , and L5 , levels after negative aspiration of CSF and blood and with no paresthesias. Cannulas were retracted while injecting lidocaine 1% until the needle is out. At the end of the procedure, the skin was cleansed and bandages were applied. COMPLICATIONS: No acute complications. DISPOSITION / PLANS: The patient was placed in a supine position and transferred to the recovery area in a stable condition for observation and was discharged from the recovery room after meeting discharge criteria. Home discharge instructions given to the patient by the staff. The patient was reexamined prior to discharge. The patient will schedule a follow up in the clinic in 2-4 weeks. Note = patient was scheduled to have RFA of the medial branch on the right side at L1, L2, L3, L4, L5 (to denervate the facet joint at the right side L2-3, L3 4, L4 5, L5-S1 , but during the procedure I found out, that the patient had a fusion at L4- 5, for this reason I did the RFA only and the levels above the fusion and below the fusion , for this reason I ended up doing only the levels mentioned above.
--- NOTE | 2020-04-19 08:12 | FL ---
EXAMINATION TYPE: FL guided pain mgmt statistic DATE OF EXAM: 04/19/2020 HISTORY: Fluoroscopy time 16 seconds of fluoroscopy provided. IMPRESSION: 1. Fluoroscopy time.
[2020-04-19] MEDS ORDERED: IV FLUID CONTINUATION 1,000 ML IV ONE (08:13)
[2020-04-19 08:30] VITALS: BP 133/65; PULSE 50; RESP 16
== END 2020-04-19 08:42 | disposition home or self-care (01) ==
LOC: ORPAIN 06:21
PROVIDERS: ATTEND Specialist
DX: M47.816 Spondylosis without myelopathy or radiculopathy, lumbar region (principal); M51.36 Other intervertebral disc degeneration, lumbar region; M96.1 Postlaminectomy syndrome, not elsewhere classified; I10 Essential (primary) hypertension; I48.91 Unspecified atrial fibrillation; J44.9 Chronic obstructive pulmonary disease, unspecified; E78.5 Hyperlipidemia, unspecified; G47.33 Obstructive sleep apnea (adult) (pediatric); E07.9 Disorder of thyroid, unspecified; K21.9 Gastro-esophageal reflux disease without esophagitis; E11.9 Type 2 diabetes mellitus without complications; Z87.891 Personal history of nicotine dependence; Z79.01 Long term (current) use of anticoagulants; Z79.84 Long term (current) use of oral hypoglycemic drugs; Z79.51 Long term (current) use of inhaled steroids; Z79.899 Other long term (current) drug therapy; Z99.89 Dependence on other enabling machines and devices
CPT/HCPCS: 64635; 64636 ×2; J2250; J1030; J3010; J2704; J2795

== ENCOUNTER 2020-05-10 07:03 | Day surgery (SDC) | payer MEDICARE, OTHER ==
[2020-05-09 11:23] VITALS: BMI 30.1
[2020-05-10 07:40] VITALS: TEMP 97.6
[2020-05-10] MEDS ORDERED: LIDOCAINE 1% (10MG/ML) FOR IV START SQ ONE (07:49)
[2020-05-10 07:54] LABS: Glucose,Whole Blood 141 mg/dL (75-99)
[2020-05-10] MEDS ORDERED: fentaNYL (PF) 50 MCG/ML 2 ML AMP ONE (07:57)
[2020-05-10] MEDS ORDERED: MIDAZOLAM 2 MG/2 ML VIAL ONE (07:57)
[2020-05-10] MEDS ORDERED: TRIAMCINOLONE ACETONIDE 40 MG/ML 1 ML VIAL ONE (07:57)
[2020-05-10] MEDS ORDERED: ROPIVACAINE 5MG/ML 20ML VIAL ONE (07:57)
[2020-05-10] MEDS ORDERED: LIDOCAINE 1% INJ 10MG/ML (20 ML MDV) ONE (07:57)
[2020-05-10] MEDS ORDERED: IV FLUID CONTINUATION 1,000 ML IV ONE (08:26)
--- NOTE | 2020-05-10 08:28 | P.PCN ---
Date of Procedure: 05/10/20 Surgeon: Cuate Weaver Pathology: none sent Condition: stable Disposition: PACU Description of Procedure: PREOPERATIVE DIAGNOSIS: Lumbar spondylosis without myelopathy, lumbar postlaminectomy syndrome POSTOPERATIVE DIAGNOSIS: Lumbar spondylosis without myelopathy, lumbar postlaminectomy syndrome PROCEDURES : Radiofrequency thermocoagulation of the left L2-3, L3 4, and L5-S1 joints on the left side ANESTHESIA: Local with lidocaine 1% and IV moderate conscious sedation by the anesthesia department Physician:Cuate Weaver MD EBL: Minimal PROCEDURE INDICATION: The patient with low back pain secondary to lumbar facet arthropathy who had more than 50% relief of her pain with previous diagnostic lumbar medial branch block with ropivacaine. The patient had lumbar fusion at the L4 5 level. Procedure was done on the levels above and below the fusion. PROCEDURE DESCRIPTION / TECHNIQUE: The patient was seen and identified in the preoperative area. Risks, benefits, complications, including but not limited to risk of infection ,bleeding , allergic reactions to the medications and no complete pain relief , and alternatives were discussed with the patient, the patient agreed to proceed with the procedure and signed the consent. IV was started. Vital signs remained stable throughout the procedure. Patient was taken to the OR and time out was completed. The patient was placed in the prone position on the procedure table. The lumber area was prepped and draped in the usual sterile fashion. . Vital signs were closely monitored during the procedure .IV sedation was used during the procedure to decrease patients anxiety. The target points were identified as follows: For the L5-S1 level which corresponds to the dorsal ramus of L5 the target point was at the superior medial aspect of the sacral ala on the -left side of the spine on the AP view of fluoroscopy and for the L1,L2,and L3, medial branches the target points were at the connection between the transverse process and the superior articular process of L2, L3, and L5 vertebra respectively on the left oblique view of fluoroscopy. skin was marked, and localized with 1% lidocaineat these points. Subsequently, an 18 [id number] radiofrequency needles with a 10-mm curved active tips were advanced guided by fluoroscopy to each of the target points mentioned above in a superior medial direction to get the active tips as parallel as possible to the medial branches tracks. AP, oblique, and lateral views of fluoroscopy were used to verify needle tips position. Each level then underwent motor testing at 2.5 Hz and 0 to 3 volt with local stimulation, but no radicular symptoms down the legs. I then injected 1 mL of lidocaine 1% in each needle before starting radiofrequency thermocoagulation at 80 degrees celsius for 90 seconds. After that I injected 1 ml of PF Ropivacaine 0.5%(3 mls) with 40 mg of Kenalog, 1 mL of this mixture was given in each needle before taking the needles out intact. At the end of the procedure, the skin was cleansed and bandages were applied. A copy of needle placement fluoroscopy was saved on the C-arm machine. COMPLICATIONS: No acute complications. DISPOSITION / PLANS: The patient was placed in a supine position and transferred to the recovery area in a stable condition for observation and was discharged from the recovery room after meeting discharge criteria. Home disch arge instructions given to the patient by the staff. The patient was reexamined prior to discharge. The patient will schedule a follow up in the clinic in 2-4 weeks.
[2020-05-10 08:29] VITALS: RESP 16
[2020-05-10 08:39] VITALS: BP 117/68; PULSE 50
--- NOTE | 2020-05-10 08:59 | FL ---
Fluoroscopy History: Left Lumbar Rad Freq. 13 secs fl. time. 5 images scanned.
== END 2020-05-10 09:04 ==
LOC: ORPAIN 07:03
PROVIDERS: ATTEND Anesthesiology
DX: M47.816 Spondylosis without myelopathy or radiculopathy, lumbar region (principal); M96.1 Postlaminectomy syndrome, not elsewhere classified; M48.061 Spinal stenosis, lumbar region without neurogenic claudication; I48.91 Unspecified atrial fibrillation; I10 Essential (primary) hypertension; E11.9 Type 2 diabetes mellitus without complications; E07.9 Disorder of thyroid, unspecified; Z79.01 Long term (current) use of anticoagulants
CPT/HCPCS: 64635; 64636 ×2; J2250; J3301; J2001; J3010; J2795

== ENCOUNTER → 2020-06-12 | Outpatient (CLI) | payer MEDICARE, OTHER ==
[2020-06-12 13:36] VITALS: BP 153/66; PULSE 60; RESP 16; TEMP 97.6
--- NOTE | 2020-06-12 14:59 | P.PN ---
Subjective Progress Note Date: 06/12/20 This is a follow visit for this 85 years old male with a chronic history of severe low back pain, is diagnosed with postlaminectomy pain syndrome lumbar area, and lumbar spondylosis with lumbar facet arthropathy without myelopathy, and lumbar foraminal stenosis, recently visited RFA of the medial branch lumbar area, he shouldn't currently complaining of severe localized pain in the left side, lateral aspect of the iliac crest, he denies any motor or sensory deficit he denies any fever or night sweats he denies any change in the bowel movement or urination, the pain in that location is constant, and aggravated with any movement Objective - Vital Signs Vital signs: Vital Signs Temp 97.6 F 06/12/20 13:34 Pulse 60 06/12/20 13:34 Resp 16 06/12/20 13:34 BP 153/66 06/12/20 13:34 Pulse Ox 97 06/12/20 13:34 - Exam -Constitutiona : Cooperative , not in acute distress . -HEENT : nech : supple , no Lymphadenopathy , normal thyroid size . : eyes : no ptosis , no icterus, no photophobia . - neurologic : Cranial nerve II to XII intact , no focal neurological deffecit . -psychatric : alert , oriented X 3 , appropriate affect , intact judgment and insight . -Lymphatic : no Lymphadenopathy . - musculoskeltal : Lumber spine moter stegnth lower extremities ,thigh and legs 5/5 Right side , 5/5 Left side deep tendon reflexes : normal Knee Jerk , normal ankle Jerk lumber facet Loading Test = negative bilaterally Range of motion of the lumbar spine Flexion 30 degrees, extension 10 degrees strait leg raising test = positive at 60 degree on the right side, negative on the left side Fabere test= positive Right , and positive LT . Sever tenderness over the iliac crest Left sides Assessment and Plan Plan: Assessment and plan=1-left Cluneal nerve neuralgia. 2-lumbar spondylosis with lumbar facet arthropathy without myelopathy. 3-postlaminectomy pain syndrome lumbar area. Patient had a good result after RFA of the medial branch lumbar area currently the pain is coming from the communion nerve location Patient could benefit from cluneal nerve block in the future, patient reported that he is currently taking care of his sick , He cannot do any injection, he preferred to try medications and the patient could benefit from Lidoderm patch for percent to be applied to .the skin at the left low back area, patient will follow up in the pain clinic in 2 weeks if he decided to have the injection. - PQRS measures = - Patient's medications are documented in the chart. -Tobacco use is negative and counseling.Given. -Patient's has not received pneumococcal vaccine. -Advanced care planning discussed, patient not eligible. -Opiate contract signed. -Pain positive and follow-up visit/procedure is scheduled. -Patient's blood pressure measured [153/66 ] , and documented in the record ,and patient will follow up with the primary care. -Patient's weight was measured and body mass index [ 29.4 ] above the normal limits and counseling was done. and patient instructed to follow-up with the primary care physician. -Patient was not identified as an unhealthy alcohol user Time with Patient: Less than 30
== END ==
LOC: PNWHC3 13:21
PROVIDERS: ATTEND Specialist
DX: M47.816 Spondylosis without myelopathy or radiculopathy, lumbar region (principal); M96.1 Postlaminectomy syndrome, not elsewhere classified; G58.8 Other specified mononeuropathies; M48.061 Spinal stenosis, lumbar region without neurogenic claudication
CPT/HCPCS: 99211

== ENCOUNTER 2020-06-30 08:13 | Inpatient (IN) | payer MEDICARE, OTHER ==
--- NOTE | 2020-06-30 08:41 | ED ---
SOB HPI - General Chief Complaint: Shortness of Breath Stated Complaint: Covid+, SOB Time Seen by Provider: 06/30/20 08:29 Source: patient, EMS Mode of arrival: EMS Limitations: no limitations - History of Present Illness Initial Comments: Patient is a 85-year-old male, history of COPD, diabetes, A. fib, presenting to the emergency Department with complaints of increasing shortness of breath over the past 2 days. Patient tested positive for Covid 3 days ago, his symptoms started 2 days before that. He's been having intermittent fevers at home, his doctor did start him on azithromycin 2 days ago. He does not have home O2. She called EMS this morning because he is feeling like he cannot take a deep breath in. He denies any chest pains, no abdominal pain, no nausea or vomiting, he does have some mild diarrhea. He did not take any Tylenol or Motrin today. He has no further complaints at this time. Upon arrival to the ER, he was 86% on room air, he is currently 91% on 3 L. He is afebrile, rest of vitals are normal. - Related Data Home Medications Medication Instructions Recorded Confirmed Fluticasone/Salmeterol [Advair 1 puff INHALATION RT-BID 03/31/15 06/30/20 250-50 Diskus] Montelukast [Singulair] 10 mg PO DAILY 03/31/15 06/30/20 Omeprazole [PriLOSEC] 20 mg PO DAILY 03/31/15 06/30/20 Rivaroxaban [Xarelto] 20 mg PO AC-SUPPER 03/31/15 06/30/20 Sildenafil Citrate [Viagra] 100 mg PO DIRECTED PRN 03/01/18 06/30/20 Simvastatin [Zocor] 20 mg PO HS 03/01/18 06/30/20 Travoprost [Travatan Z 0.004%] 1 drop LEFT EYE HS 03/03/18 06/30/20 Cetirizine HCl [Zyrtec] 10 mg PO DAILY 06/01/18 06/30/20 Lisinopril-Hctz 20-12.5 mg 1 tab PO DAILY 06/01/18 06/30/20 [Zestoretic 20-12.5] metFORMIN HCL [Glucophage] 250 mg PO AC-SUPPER 06/01/18 06/30/20 sitaGLIPtin [Januvia] 100 mg PO DAILY 06/01/18 06/30/20 Levothyroxine Sodium [Synthroid] 75 mcg PO DAILY 06/14/18 06/30/20 Metoprolol Succinate [Toprol XL] 50 mg PO BID 04/17/20 06/30/20 Timolol 0.5% Ophth Gel Forming 1 drop BOTH EYES BID 04/17/20 06/30/20 [Timoptic-Xe] Azithromycin [Zithromax Z-pack (6 See Taper PO DAILY 06/30/20 06/30/20 tabs)] Multivitamins, Thera [Multivitamin 1 tab PO DAILY 06/30/20 06/30/20 (formulary)] [place]-Matt(Fish Oil) 1 cap PO DAILY 06/30/20 06/30/20 Opti-Floride 1 tab PO DAILY 06/30/20 06/30/20 Vitamin D3(Unknown Dose) 1 tab PO DAILY 06/30/20 06/30/20 Previous Rx's Medication Instructions Recorded Amiodarone [Cordarone] 200 mg PO DAILY #90 tab 06/16/18 Allergies Allergy/AdvReac Type Severity Reaction Status Date / Time No Known Allergies Allergy Verified 06/30/20 08:25 Review of Systems ROS Statement: Those systems with pertinent positive or pertinent negative responses have been documented in the HPI. ROS Other: All systems not noted in ROS Statement are negative. Past Medical History Past Medical History: Atrial Fibrillation, Asthma, COPD, CVA/TIA, Diabetes Mellitus, Eye Disorder, GERD/Reflux, Hyperlipidemia, Hypertension, Musculoskeletal Disorder, Osteoarthritis (OA), Pneumonia, Prostate Disorder, Sleep Apnea/CPAP/BIPAP, Thyroid Disorder Additional Past Medical History / Comment(s): Glaucoma lt eye, Past Stroke behind rt eye, "i have a blotch in the middle of my vision rt eye." hx chronic sinusitis, no cpap used, frequent nighttime urination. Chronic Lumbar Back pain. "Balance isn't what it used to be." History of Any Multi-Drug Resistant Organisms: None Reported Past Surgical History: Adenoidectomy, Back Surgery, Cardiac Ablation, Hernia Repair, Orthopedic Surgery, Prostate Surgery, Tonsillectomy Additional Past Surgical History / Comment(s): Mastoidectomy Rt ear, Septoplasty, TURP, sandee cataracts-lens implants, colonoscopy, vasectomy, Cardioversion, lt thumb trigger finger sx, rt thumb 2nd, 3rd finger trigger finger sx. Bilat Ing Hernia. Back surg 2002, Laminectomy & fusion L4-L5. Pain procedures Past Anesthesia/Blood Transfusion Reactions: No Reported Reaction Past Psychological History: No Psychological Hx Reported Smoking Status: Former smoker Past Alcohol Use History: Rare Past Drug Use History: None Reported - Past Family History Sister(s) Family Medical History: Cancer General Exam - General Exam Comments Initial Comments: GENERAL: Patient is well-developed and well-nourished. Patient is nontoxic and in no acute distress. HEAD: Atraumatic, normocephalic. EYES: Pupils equal round and reactive to light, extraocular movements intact, sclera anicteric, conjunctiva are normal. Eyelids were unremarkable. ENT: TMs normal, nares patent, oropharynx clear without exudates. Moist mucous membranes. NECK: Normal range of motion, supple without lymphadenopathy or JVD. LUNGS: Mildly labored respirations. Breath sounds clear to auscultation bilaterally and equal. No wheezes rales or rhonchi. HEART: Regular rate and rhythm without murmurs, rubs or gallops. ABDOMEN: Soft, nontender, normoactive bowel sounds. No guarding, no rebound. No masses appreciated. : Deferred MUSCULOSKELETAL: Normal extremities with adequate strength and normal range of motion, no pitting or edema. No clubbing or cyanosis. NEUROLOGICAL: Patient is alert and oriented x 3. Motor and sensory are also intact. Cranial nerves II through XII grossly intact. Symmetrical smile. Normal speech, normal gait. PSYCH: Normal mood, normal affect. SKIN: Warm, Dry, normal turgor, no rashes or lesions noted. Limitations: no limitations Course Vital Signs 06/30/20 06/30/20 06/30/20 08:14 08:15 08:20 Temperature 98.1 F Pulse Rate 69 Respiratory 20 Rate Blood Pressure 145/86 O2 Sat by Pulse 91 L 86 L 94 L Oximetry Medical Decision Making - Medical Decision Making Patient is an 85-year-old male with history of COPD, heart disease, diabetes, presenting from EMS for increasing shortness of breath over the past 2 days. Tested positive for Covid 3 days ago, symptoms started 5 days ago. He is afebrile here, 86% on room air, 91% on 3 L. EKG shows normal sinus rhythm, no acute process. Labs show a normal white count, sodium is slightly low at 132, lactic acid is normal, LDH and CRP are high. Chest x-ray shows bilateral infi ltrates. Patient has remained stable at 94% on 3 L. Patient given dose of steriods. Patient will be admitted for Covid pneumonia, hypoxia. Dr. Chen is accepting. Case discussed with Dr. Espino. - Lab Data Result diagrams: 06/30/20 08:34 06/30/20 08:34 Lab Results 06/30/20 06/30/20 06/30/20 Range/Units 08:34 08:34 08:34 WBC 4.6 (3.8-10.6) k/uL RBC 3.92 L (4.30-5.90) m/uL Hgb 12.3 L (13.0-17.5) gm/dL Hct 35.9 L (39.0-53.0) % MCV 91.6 (80.0-100.0) fL MCH 31.3 (25.0-35.0) pg MCHC 34.1 (31.0-37.0) g/dL RDW 13.3 (11.5-15.5) % Plt Count 161 (150-450) k/uL MPV 8.4 Neutrophils % 83 % Lymphocytes % 8 % Monocytes % 7 % Eosinophils % 0 % Basophils % 1 % Neutrophils # 3.8 (1.3-7.7) k/uL Lymphocytes # 0.4 L (1.0-4.8) k/uL Monocytes # 0.3 (0-1.0) k/uL Eosinophils # 0.0 (0-0.7) k/uL Basophils # 0.0 (0-0.2) k/uL PT 12.1 H (9.0-12.0) sec INR 1.2 H (<1.2) APTT 32.0 H (22.0-30.0) sec Sodium 132 L (137-145) mmol/L Potassium 3.5 (3.5-5.1) mmol/L Chloride 101 (98-107) mmol/L Carbon Dioxide 24 (22-30) mmol/L Anion Gap 7 mmol/L BUN 21 H (9-20) mg/dL Creatinine 1.05 (0.66-1.25) mg/dL Est GFR (CKD-EPI)AfAm 76 (>60 ml/min/1.73 sqM) Est GFR (CKD-EPI)NonAf 66 (>60 ml/min/1.73 sqM) Glucose 147 H (74-99) mg/dL Plasma Lactic Acid Nadeem (0.7-2.0) mmol/L Calcium 8.1 L (8.4-10.2) mg/dL Magnesium 2.0 (1.6-2.3) mg/dL Total Bilirubin 1.3 (0.2-1.3) mg/dL AST 51 (17-59) U/L ALT 19 (4-49) U/L Alkaline Phosphatase 51 (38-126) U/L Lactate Dehydrogenase 922 H (313-618) U/L C-Reactive Protein 260.4 H (<10.0) mg/L Total Protein 5.6 L (6.3-8.2) g/dL Albumin 3.4 L (3.5-5.0) g/dL 06/30/20 Range/Units 08:34 WBC (3.8-10.6) k/uL RBC (4.30-5.90) m/uL Hgb (13.0-17.5) gm/dL Hct (39.0-53.0) % MCV (80.0-100.0) fL MCH (25.0-35.0) pg MCHC (31.0-37.0) g/dL RDW (11.5-15.5) % Plt Count (150-450) k/uL MPV Neutrophils % % Lymphocytes % % Monocytes % % Eosinophils % % Basophils % % Neutrophils # (1.3-7.7) k/uL Lymphocytes # (1.0-4.8) k/uL Monocytes # (0-1.0) k/uL Eosinophils # (0-0.7) k/uL Basophils # (0-0.2) k/uL PT (9.0-12.0) sec INR (<1.2) APTT (22.0-30.0) sec Sodium (137-145) mmol/L Potassium (3.5-5.1) mmol/L Chloride (98-107) mmol/L Carbon Dioxide (22-30) mmol/L Anion Gap mmol/L BUN (9-20) mg/dL Creatinine (0.66-1.25) mg/dL Est GFR (CKD-EPI)AfAm (>60 ml/min/1.73 sqM) Est GFR (CKD-EPI)NonAf (>60 ml/min/1.73 sqM) Glucose (74-99) mg/dL Plasma Lactic Acid Nadeem 1.0 (0.7-2.0) mmol/L Calcium (8.4-10.2) mg/dL Magnesium (1.6-2.3) mg/dL Total Bilirubin (0.2-1.3) mg/dL AST (17-59) U/L ALT (4-49) U/L Alkaline Phosphatase (38-126) U/L Lactate Dehydrogenase (313-618) U/L C-Reactive Protein (<10.0) mg/L Total Protein (6.3-8.2) g/dL Albumin (3.5-5.0) g/dL - EKG Data EKG Comments: Normal sinus rhythm, incomplete RBBB, no signs of acute ischemia. Ventricular rate 65, DE interval 180, QT 446. Similar to previous EKG on 06/17/2018. Disposition Clinical Impression: Pneumonia due to COVID-19 virus, Hypoxia Disposition: ADMITTED IP TO THIS HOSP Condition: Stable Referrals: Radha Smith DO [Primary Care Provider] - 1-2 days Decision Date: 06/30/20 Decision Time: 10:22
[2020-06-30 08:46] LABS: Basophils % (A) 1 %; Eosinophils % (A) 0 %; HCT 35.9 % (39.0-53.0); HGB 12.3 gm/dL (13.0-17.5); Lymphocytes # (A) 0.4 k/uL (1.0-4.8); Lymphocytes % (A) 8 %; MCH 31.3 pg (25.0-35.0); MCHC 34.1 g/dL (31.0-37.0); MCV 91.6 fL (80.0-100.0); Mean Platelet Volume 8.4; Monocytes # (A) 0.3 k/uL (0-1.0); Monocytes % (A) 7 %; Neutrophils # (A) 3.8 k/uL (1.3-7.7); Neutrophils % (A) 83 %; Platelet Count 161 k/uL (150-450); RBC 3.92 m/uL (4.30-5.90); RDW 13.3 % (11.5-15.5); WBC 4.6 k/uL (3.8-10.6)
[2020-06-30 09:01] LABS: INR 1.2 (<1.2); Prothrombin Time 12.1 sec (9.0-12.0)
--- NOTE | 2020-06-30 09:04 | XR ---
EXAMINATION TYPE: XR chest 1V portable DATE OF EXAM: 06/30/2020 COMPARISON: 04/13/2018. HISTORY: Suspected Covid 19 pneumonia. Shortness of breath. TECHNIQUE: Single frontal view of the chest is obtained. FINDINGS: There is moderate perihilar and bibasilar patchy opacities. No significant pleural effusio n, or pneumothorax seen. The cardiac silhouette size is mildly enlarged. The osseous structures ar e intact. IMPRESSION: Bilateral infiltrates.
[2020-06-30 09:06] LABS: Albumin 3.4 g/dL (3.5-5.0); Calcium 8.1 mg/dL (8.4-10.2); Potassium 3.5 mmol/L (3.5-5.1); Total Bilirubin 1.3 mg/dL (0.2-1.3); Total Protein 5.6 g/dL (6.3-8.2)
[2020-06-30 09:33] LABS: C Reactive Protein 260.4 mg/L (<10.0)
[2020-06-30] MEDS ORDERED: DEXAMETHASONE SOD PHOSPHATE 10 MG/ML 1 ML VIAL IV STA (10:21)
[2020-06-30 11:48] LABS: Ferritin 1159.4 ng/mL (22.0-322.0)
--- NOTE | 2020-06-30 13:50 | P.HPIM ---
History of Present Illness Patient is a 85-year-old male, history of COPD, diabetes, A. fib, presenting to the emergency Department with complaints of increasing shortness of breath over the past 2 days. Patient tested positive for Covid 3 days ago, his symptoms started 2 days before that. He's been having intermittent fevers at home, his doctor did start him on azithromycin 2 days ago. He does not have home O2. She called EMS this morning because he is feeling like he cannot take a deep breath in. He denies any chest pains, no abdominal pain, no nausea or vomiting, he does have some mild diarrhea. He did not take any Tylenol or Motrin today. He has no further complaints at this time. Upon arrival to the ER, he was 86% on room air, he is currently 91% on 3 L. patient had a chest x-ray which showed a significant infiltrates bilaterally serum sodium is low at 132. Patient had elevated inflammatory markers. Review of Systems REVIEW OF SYSTEMS: CONSTITUTIONAL: No fever. HEENT: No recent visual problems or hearing problems. Denied any sore throat. CARDIOVASCULAR: No chest pain, orthopnea, PND, no palpitations, no syncope. PULMONARY: no hemoptysis. GASTROINTESTINAL: No diarrhea, no nausea, no vomiting, no abdominal pain. NEUROLOGICAL: No headaches, no weakness, no numbness. HEMATOLOGICAL: Denies any bleeding or petechiae. GENITOURINARY: Denies any burning micturition, frequency, or urgency. MUSCULOSKELETAL/RHEUMATOLOGICAL: Denies any joint pain, swelling, or any muscle pain. ENDOCRINE: Denies any polyuria or polydipsia. The rest of the 14-point review of systems is negative. Past Medical History Past Medical History: Atrial Fibrillation, Asthma, COPD, CVA/TIA, Diabetes Mellitus, Eye Disorder, GERD/Reflux, Hyperlipidemia, Hypertension, Muscul oskeletal Disorder, Osteoarthritis (OA), Pneumonia, Prostate Disorder, Sleep Apnea/CPAP/BIPAP, Thyroid Disorder Additional Past Medical History / Comment(s): Glaucoma lt eye, Past Stroke behind rt eye, "i have a blotch in the middle of my vision rt eye." hx chronic sinusitis, no cpap used, frequent nighttime urination. Chronic Lumbar Back pain. "Balance isn't what it used to be." History of Any Multi-Drug Resistant Organisms: None Reported Past Surgical History: Adenoidectomy, Back Surgery, Cardiac Ablation, Hernia R epair, Orthopedic Surgery, Prostate Surgery, Tonsillectomy Additional Past Surgical History / Comment(s): Mastoidectomy Rt ear, Septoplasty, TURP, sandee cataracts-lens implants, colonoscopy, vasectomy, Cardioversion, lt thumb trigger finger sx, rt thumb 2nd, 3rd finger trigger finger sx. Bilat Ing Hernia. Back surg 2001, Laminectomy & fusion L4-L5. Pain procedures Past Anesthesia/Blood Transfusion Reactions: No Reported Reaction Past Psychological History: No Psychological Hx Reported Smoking Status: Former smoker Past Alcohol Use History: Rare Past Drug Use History: None Reported - Past Family History Sister(s) Family Medical History: Cancer Medications and Allergies Home Medications Medication Instructions Recorded Confirmed Type Fluticasone/Salmeterol [Advair 1 puff INHALATION RT-BID 03/31/15 06/30/20 History 250-50 Diskus] Montelukast [Singulair] 10 mg PO DAILY 03/31/15 06/30/20 History Omeprazole [PriLOSEC] 20 mg PO DAILY 03/31/15 06/30/20 History Rivaroxaban [Xarelto] 20 mg PO AC-SUPPER 03/31/15 06/30/20 History Sildenafil Citrate [Viagra] 100 mg PO DIRECTED PRN 03/01/18 06/30/20 History Simvastatin [Zocor] 20 mg PO HS 03/01/18 06/30/20 History Travoprost [Travatan Z 0.004%] 1 drop LEFT EYE HS 03/03/18 06/30/20 History Cetirizine HCl [Zyrtec] 10 mg PO DAILY 06/01/18 06/30/20 History Lisinopril-Hctz 20-12.5 mg 1 tab PO DAILY 06/01/18 06/30/20 History [Zestoretic 20-12.5] metFORMIN HCL [Glucophage] 250 mg PO AC-SUPPER 06/01/18 06/30/20 History sitaGLIPtin [Januvia] 100 mg PO DAILY 06/01/18 06/30/20 History Levothyroxine Sodium [Synthroid] 75 mcg PO DAILY 06/14/18 06/30/20 History Amiodarone [Cordarone] 200 mg PO DAILY #90 tab 06/16/18 06/30/20 Rx Metoprolol Succinate [Toprol XL] 50 mg PO BID 04/17/20 06/30/20 History Timolol 0.5% Ophth Gel Forming 1 drop BOTH EYES BID 04/17/20 06/30/20 History [Timoptic-Xe] Azithromycin [Zithromax Z-pack (6 See Taper PO DAILY 06/30/20 06/30/20 History tabs)] Multivitamins, Thera [Multivitamin 1 tab PO DAILY 06/30/20 06/30/20 History (formulary)] [place]-Matt(Fish Oil) 1 cap PO DAILY 06/30/20 06/30/20 History Opti-Floride 1 tab PO DAILY 06/30/20 06/30/20 History Vitamin D3(Unknown Dose) 1 tab PO DAILY 06/30/20 06/30/20 History Allergies Allergy/AdvReac Type Severity Reaction Status Date / Time No Known Allergies Allergy Verified 06/30/20 08:25 Physical Exam Vitals: Vital Signs Temp Pulse Resp BP Pulse Ox 06/30/20 11:05 98.7 F 67 18 147/69 94 L 06/30/20 08:20 94 L 06/30/20 08:15 86 L 06/30/20 08:14 98.1 F 69 20 145/86 91 L Intake and Output 06/29/20 06/30/20 06/30/20 22:59 06:59 14:59 Other: Weight 95.708 kg PHYSICAL EXAMINATION: GENERAL: The patient is alert and oriented x3, not in any acute distress. Well developed, well nourished. HEENT: Pupils are round and equally reacting to light. EOMI. No scleral icterus. No conjunctival pallor. Normocephalic, atraumatic. No pharyngeal erythema. No thyromegaly. CARDIOVASCULAR: S1 and S2 present. No murmurs, rubs, or gallops. PULMONARY: Chest is clear to auscultation, no wheezing or crackles. ABDOMEN: Soft, nontender, nondistended, normoactive bowel sounds. No palpable or ganomegaly. MUSCULOSKELETAL: No joint swelling or deformity. EXTREMITIES: No cyanosis, clubbing, or pedal edema. NEUROLOGICAL: Gross neurological examination did not reveal any focal deficits. SKIN: No rashes. Results CBC & Chem 7: 06/30/20 08:34 06/30/20 08:34 Labs: Abnormal Lab Results - Last 24 Hours (Table) 06/30/20 06/30/20 06/30/20 Range/Units 08:34 08:34 08:34 RBC 3.92 L (4.30-5.90) m/uL Hgb 12.3 L (13.0-17.5) gm/dL Hct 35.9 L (39.0-53.0) % Lymphocytes # 0.4 L (1.0-4.8) k/uL PT 12.1 H (9.0-12.0) sec INR 1.2 H (<1.2) APTT 32.0 H (22.0-30.0) sec Sodium 132 L (137-145) mmol/L BUN 21 H (9-20) mg/dL Glucose 147 H (74-99) mg/dL Calcium 8.1 L (8.4-10.2) mg/dL Ferritin 1159.4 H (22.0-322.0) ng/mL Lactate Dehydrogenase 922 H (313-618) U/L C-Reactive Protein 260.4 H (<10.0) mg/L Total Protein 5.6 L (6.3-8.2) g/dL Albumin 3.4 L (3.5-5.0) g/dL Procalcitonin (0.02-0.09) ng/mL 06/30/20 Range/Units 08:34 RBC (4.30-5.90) m/uL Hgb (13.0-17.5) gm/dL Hct (39.0-53.0) % Lymphocytes # (1.0-4.8) k/uL PT (9.0-12.0) sec INR (<1.2) APTT (22.0-30.0) sec Sodium (137-145) mmol/L BUN (9-20) mg/dL Glucose (74-99) mg/dL Calcium (8.4-10.2) mg/dL Ferritin (22.0-322.0) ng/mL Lactate Dehydrogenase (313-618) U/L C-Reactive Protein (<10.0) mg/L Total Protein (6.3-8.2) g/dL Albumin (3.5-5.0) g/dL Procalcitonin 0.24 H (0.02-0.09) ng/mL Assessment and Plan Plan: -Covid 19 pneumonia: Probably was consulted, patient was started on Decadron, patient is a candidate for Remdesivir, continue with the oxygen support Covid multivitamins will be ordered will monitor intermittent markers. -Proximal atrial fibrillation: Patient is presently rate controlled continue wit h his home medications including amiodarone continue with anticoagulation -COPD without any acute exacerbation extend-CVA/TIA in the past -Type 2 diabetes mellitus: Blood sugars are expected to go up because systemic steroids ration may need long-acting insulin for that which will be added once his blood sugar starts going up -Hyperlipidemia next and-hypertension -Benign prostatic hypertrophy -Sleep apnea -Hypothyroidism -DVT prophylaxis patient is on any anti-correlation with Xarelto which will be continued.
[2020-06-30] MEDS: RIVAROXABAN 20 MG TAB PO SCH (16:16)
[2020-06-30] MEDS: ZINC SULFATE 220 MG CAP PO SCH (16:16)
[2020-06-30] MEDS: dexAMETHasone 2 MG TAB PO SCH (16:16)
[2020-06-30] MEDS ORDERED: REMDESIVIR 200 MG in SODIUM CHLORIDE 0.9% 250 ML IVPB ONE (19:00)
[2020-06-30] MEDS: SYMBICORT 80-4.5 MCG INHALER INHALATION SCH (19:47)
[2020-06-30] MEDS: INSULIN ASPART (NovoLOG) 100 UNIT/ML VIAL SQ SCH ×2 (20:54→21:11)
[2020-06-30] MEDS: metFORMIN 500 MG TAB PO SCH (20:59)
[2020-06-30 21:02] LABS: Glucose,Whole Blood 280 mg/dL (75-99)
[2020-06-30] MEDS: ASCORBIC ACID 500 MG TAB PO SCH (21:09)
[2020-06-30] MEDS: ATORVASTATIN 10 MG TAB PO SCH (21:10)
[2020-06-30] MEDS: METOPROLOL SUCCINATE (ER) 50 MG TAB.ER.24H PO SCH (21:10)
[2020-06-30] MEDS: LATANOPROST 0.005% OPHTH DROPS 2.5 ML BTL LEFT EYE SCH (21:16)
[2020-06-30] MEDS: TIMOLOL 0.5% OPHTH DROPS 5 ML BTL BOTH EYES SCH (21:17)
[2020-06-30] MEDS ORDERED: MELATONIN 3 MG TABLET PO PRN (22:50)
[2020-07-01] MEDS: guaiFENesin SYRUP 100MG/5ML 200 MG/10 ML CUP PO PRN ×2 (00:14→09:26)
[2020-07-01] MEDS: LEVOTHYROXINE 75 MCG TAB PO SCH (05:33)
[2020-07-01 06:58] LABS: Glucose,Whole Blood 201 mg/dL (75-99)
[2020-07-01] MEDS: SYMBICORT 80-4.5 MCG INHALER INHALATION SCH ×3 (07:22→19:13)
[2020-07-01] MEDS: INSULIN ASPART (NovoLOG) 100 UNIT/ML VIAL SQ SCH ×4 (07:50→21:14)
[2020-07-01] MEDS: MONTELUKAST 10 MG TAB PO SCH (07:51)
[2020-07-01] MEDS: PANTOPRAZOLE 40 MG TABLET PO SCH (07:51)
[2020-07-01] MEDS: dexAMETHasone 2 MG TAB PO SCH (07:51)
[2020-07-01] MEDS: ASCORBIC ACID 500 MG TAB PO SCH ×2 (07:51→21:14)
[2020-07-01] MEDS: LINAGLIPTIN 5 MG TABLET PO SCH (07:51)
[2020-07-01] MEDS: AMIODARONE 200 MG TAB PO SCH (07:51)
[2020-07-01] MEDS: METOPROLOL SUCCINATE (ER) 50 MG TAB.ER.24H PO SCH ×2 (07:51→21:14)
[2020-07-01] MEDS: MULTIVITAMINS, THERA 1 EACH TAB PO SCH (07:51)
[2020-07-01] MEDS: CHOLECALCIFEROL 25 MCG (1000 IU) TABLET PO SCH (07:51)
[2020-07-01] MEDS: LORATADINE 10 MG TAB PO SCH (07:51)
[2020-07-01] MEDS: [UNRECOGNIZED DRUG - OTHER] PO SCH (07:52)
[2020-07-01] MEDS: FISH OIL PO SCH (07:52)
[2020-07-01] MEDS: ZINC SULFATE 220 MG CAP PO SCH (07:54)
[2020-07-01] MEDS: TIMOLOL 0.5% OPHTH DROPS 5 ML BTL BOTH EYES SCH ×2 (07:54→21:15)
--- NOTE | 2020-07-01 09:31 | CONS ---
CONSULTATION DATE OF SERVICE: 06/30/2020 REASON FOR CONSULTATION: COVID-19 infection. HISTORY OF PRESENT ILLNESS: The patient is an 85-year-old male with past medical history significant for COPD, diabetes mellitus presenting to the ER with chief complaints of increasing shortness of breath that had been getting worse for the last 2 days. The patient apparently has been tested positive for COVID three days ago and this patient did have symptoms 2 days prior to his testing. The patient has been complaining of fever at home along with some rigors and chills, generalized body aches. The patient has been treated with Zithromax for 2 days without any improvement. EMS was called as the patient was unable to take a deep breath in, however, did not complain of any chest pain. No nausea, no vomiting, and did have some diarrhea. With these symptoms, the patient taken to the hospital. On arrival to the ER, the patient was hypoxic with O2 sats of 96% on room air. The patient has a cough which is moderate in intensity with occasional clear sputum. No hemoptysis. No nausea, no vomiting, decreased oral intake. On presentation to the hospital, the patient was afebrile. He did have an O2 sats 90% to 86% on room air. The patient has normal white count with lymphopenia. D-dimer was not checked. Creatinine was normal. Liver enzymes are normal. LDH was 922. CRP of 260. Procalcitonin 0.24. The patient did have a chest x-ray, bilateral infiltrate. The patient has been admitted to the hospital. Infectious Disease was consulted for further management. REVIEW OF SYSTEMS: Positive points have been mentioned in HPI. Rest of the systems are negative. PAST MEDICAL HISTORY: Atrial fibrillation, asthma, COPD, CVA, TIA, diabetes mellitus, hyperlipidemia, hypertension, osteoarthritis, pneumonia, prostate disorder. PAST SURGICAL HISTORY: Adenoidectomy, back surgery, cardiac ablation, hernia repair, prostate surgery, tonsillectomy. SOCIAL HISTORY: Remote history of smoking. Rarely drinks. No drug use. FAMILY HISTORY: Sister with a history of cancer. ALLERGIES: No known drug allergies. MEDICATIONS: Currently the patient is on amiodarone, vitamin C, Lipitor Symbicort, vitamin D3, dexamethasone, NovoLog, Synthroid, Tradjenta, Claritin, Glucophage, Toprol-XL, Singulair, Theragran, Protonix, remdesivir, Xarelto, zinc sulfate. PHYSICAL EXAMINATION: Blood pressure 140/64, pulse of 65, temperature 98.5. He is 96% on 2 L nasal cannula. General description is an elderly male lying in bed in no distress. No tachypnea or accessory muscles of respiration use. HEENT: Examination shows no pallor or scleral icterus. Oral mucous membrane is dry. NECK: Trachea central. No thyromegaly. LUNGS: Unlabored breathing. Coarse breath sounds at the bases bilaterally. No wheeze. HEART: S1, S2. Regular rate and rhythm. ABDOMEN: Soft, no tenderness. No guarding or rigidity. EXTREMITIES: No edema of feet. SKIN EXAMINATION: No rash or mass palpable. NEUROLOGICAL: Patient is awake, alert, oriented x3. Mood and affect normal. LABS: Hemoglobin is 12.3, white count 4.6, BUN of 21, creatinine 1.05. Ferritin is 1159. LDH is 922. CRP is 260. Chest x-ray with bilateral infiltrate. DIAGNOSTIC IMPRESSION: Patient admitted to the hospital with increasing shortness of breath, cough, nausea and diarrhea in this patient who did have evidence of bilateral infiltrate pneumonia secondary to acute COVID-19 infection. Symptom onset has been 5 days ago. The patient with hypoxemia symptom onset does qualify for remdesivir. PLAN: 1. The patient will be started on Rocephin per protocol 200 mg x1 followed by 100 mg daily. 2. Dexamethasone, Lovenox, zinc and ascorbic acid. 3. Droplet isolation and respiratory support. 4. We will follow on clinical condition and culture to further adjust medication if needed. Thank you for this consultation. Will follow this patient along with you. MMODL / IJN: [id number] /
[2020-07-01 11:37] LABS: Glucose,Whole Blood 207 mg/dL (75-99)
[2020-07-01] MEDS ORDERED: ACETAMINOPHEN TAB 325 MG TAB PO PRN (12:57)
[2020-07-01 17:02] LABS: Glucose,Whole Blood 258 mg/dL (75-99)
--- NOTE | 2020-07-01 17:06 | P.CNPUL ---
History of Present Illness Consult date: 07/01/20 Requesting physician: Diego Smith Reason for consult: dyspnea, cough, hypoxemia, pneumonia, abnormal CXR/CT Chief complaint: Hypoxemic respiratory failure. History of present illness: 85-year-old male, with a history of COPD, diabetes, and atrial fibrillation, who presents to the emergency department via EMS, with complaints of increasing shortness of breath for 2 days or so prior to admission. The patient apparently tested positive for COVID 3 days ago. The patient also complains of in termittent fevers, shortness of breath, muscle aches, joint aches, decreased appetite, and generally just not feeling well with significant fatigue. He apparently could not take a deep breath and for that reason asked to be evaluated. White count 4.6, he will 12.3, hematocrit 35.9, platelet count 161,000. PT 12.1, INR 1.2, and PTT 32.0. D-dimer is 1.59. Sodium 132, potassium 3.5, chlorides 101, CO2 24, anion gap 7, BUN 21, creatinine 1.05. LDH was 922, and C-reactive protein is 260. Pro-calcitonin level is 0.24. Chest x-ray showed bilateral infiltrates, consistent with COVID 19 pneumonia. The patient was initially on 5 L nasal cannula, but is now on 10 L high flow nasal cannula. Review of Systems REVIEW OF SYSTEMS: CONSTITUTIONAL: Muscle aches, soreness, fever, chills, weakness and fatigue. NEUROLOGIC: [ Negative.] HEENT: [ Negative.] CARDIAC: [Negative.] PULMONARY: Shortness of breath, pain with taking a deep inspiration, cough. GI: [Negative.] : [Negative.] RHEUMATOLOGIC: [ Negative.] IMMUNOLOGIC: [ Negative.] ENDOCRINE: [Negative. ] DERMATOLOGIC: [Negative.] Past Medical History Past Medical History: Atrial Fibrillation, Asthma, COPD, CVA/TIA, Diabetes Mellitus, Eye Disorder, GERD/Reflux, Hyperlipidemia, Hypertension, Musculoskeletal Disorder, Osteoarthritis (OA), Pneumonia, Prostate Disorder, Sleep Apnea/CPAP/BIPAP, Thyroid Disorder Additional Past Medical History / Comment(s): Glaucoma lt eye, Past Stroke behind rt eye, "i have a blotch in the middle of my vision rt eye." hx chronic sinusitis, no cpap used, frequent nighttime urination. Chronic Lumbar Back pain. "Balance isn't what it used to be." History of Any Multi-Drug Resistant Organisms: None Reported Past Surgical History: Adenoidectomy, Back Surgery, Cardiac Ablation, Hernia Repair, Orthopedic Surgery, Prostate Surgery, Tonsillectomy Additional Past Surgical History / Comment(s): Mastoidectomy Rt ear, Septoplas ty, TURP, sandee cataracts-lens implants, colonoscopy, vasectomy, Cardioversion, lt thumb trigger finger sx, rt thumb 2nd, 3rd finger trigger finger sx. Bilat Ing Hernia. Back surg 2001, Laminectomy & fusion L4-L5. Pain procedures Past Anesthesia/Blood Transfusion Reactions: No Reported Reaction Past Psychological History: No Psychological Hx Reported Smoking Status: Former smoker Past Alcohol Use History: Rare Additional Past Alcohol Use History / Comment(s): SMOKED AGE 17, QUIT 1973, 4 PPD. Past Drug Use History: None Reported - Past Family History Sister(s) Family Medical History: Cancer Medications and Allergies Home Medications Medication Instructions Recorded Confirmed Type Fluticasone/Salmeterol [Advair 1 puff INHALATION RT-BID 03/31/15 06/30/20 History 250-50 Diskus] Montelukast [Singulair] 10 mg PO DAILY 03/31/15 06/30/20 History Omeprazole [PriLOSEC] 20 mg PO DAILY 03/31/15 06/30/20 History Rivaroxaban [Xarelto] 20 mg PO AC-SUPPER 03/31/15 06/30/20 History Sildenafil Citrate [Viagra] 100 mg PO DIRECTED PRN 03/01/18 06/30/20 History Simvastatin [Zocor] 20 mg PO HS 03/01/18 06/30/20 History Travoprost [Travatan Z 0.004%] 1 drop LEFT EYE HS 03/03/18 06/30/20 History Cetirizine HCl [Zyrtec] 10 mg PO DAILY 06/01/18 06/30/20 History Lisinopril-Hctz 20-12.5 mg 1 tab PO DAILY 06/01/18 06/30/20 History [Zestoretic 20-12.5] metFORMIN HCL [Glucophage] 250 mg PO AC-SUPPER 06/01/18 06/30/20 History sitaGLIPtin [Januvia] 100 mg PO DAILY 06/01/18 06/30/20 History Levothyroxine Sodium [Synthroid] 75 mcg PO DAILY 06/14/18 06/30/20 History Amiodarone [Cordarone] 200 mg PO DAILY #90 tab 06/16/18 06/30/20 Rx Metoprolol Succinate [Toprol XL] 50 mg PO BID 04/17/20 06/30/20 History Timolol 0.5% Ophth Gel Forming 1 drop BOTH EYES BID 04/17/20 06/30/20 History [Timoptic-Xe] Azithromycin [Zithromax Z-pack (6 See Taper PO DAILY 06/30/20 06/30/20 History tabs)] Multivitamins, Thera [Multivitamin 1 tab PO DAILY 06/30/20 06/30/20 History (formulary)] [place]-Matt(Fish Oil) 1 cap PO DAILY 06/30/20 06/30/20 History Opti-Floride 1 tab PO DAILY 06/30/20 06/30/20 History Vitamin D3(Unknown Dose) 1 tab PO DAILY 06/30/20 06/30/20 History Allergies Allergy/AdvReac Type Severity Reaction Status Date / Time No Known Allergies Allergy Verified 06/30/20 08:25 Physical Exam Osteopathic Statement: *. No significant issues noted on an osteopathic structural exam other than those noted in the History and Physical/Consult. Vitals: Vital Signs Temp Pulse Pulse Resp BP BP Pulse Ox 07/01/20 14:41 70 90 L 07/01/20 13:22 97.7 F 70 18 145/66 87 L 07/01/20 12:36 90 L 07/01/20 08:45 90 L 07/01/20 08:13 97.9 F 62 18 138/69 87 L 07/01/20 05:13 97.8 F 61 17 132/68 90 L 07/01/20 01:20 18 07/01/20 00:58 97.9 F 64 18 172/77 90 L 06/30/20 20:55 65 18 140/64 96 Intake and Output 07/01/20 07/01/20 07/01/20 06:59 14:59 22:59 Intake Total 100 Output Total 300 450 Balance -200 -450 Intake: Oral 100 Output: Urine 300 450 Other: Voiding Method Urinal # Voids 1 Weight 95.708 kg No acute distress, oriented 3. Currently on 10 L high flow nasal cannula. No conversational dyspnea or use of accessory muscles. HEENT examination is grossly unremarkable. Mucous membranes are moist. No oral lesions. Neck supple. Full range of motion. No adenopathy thyromegaly or neck vein distention. Cardiovascular examination reveals regular rhythm rate. S1-S2 normal. No S3 or S4. No discernible murmur noted. Heart sounds distant. Heart rate 70 bpm. Lungs reveal coarse bilateral rhonchi. Some bibasilar crackles. Breath sounds equal bilaterally. No wheezes appreciated.. Abdomen soft bowel sounds are heard. No masses or tenderness. Extremities are intact. No cyanosis clubbing or edema. Skin is without rash or lesion. Neurologic examination is brief but nonfocal. Results - Laboratory Findings CBC and BMP: 06/30/20 08:34 06/30/20 08:34 PT/INR, D-dimer PT 12.1 sec (9.0-12.0) H 06/30/20 08:34 INR 1.2 (<1.2) H 06/30/20 08:34 D-Dimer 1.59 mg/L FEU (<0.60) H 07/01/20 15:49 Abnormal lab findings: Abnormal Labs 06/30/20 06/30/20 06/30/20 08:34 08:34 08:34 RBC 3.92 L Hgb 12.3 L Hct 35.9 L Lymphocytes # 0.4 L PT 12.1 H INR 1.2 H APTT 32.0 H D-Dimer Sodium 132 L BUN 21 H Glucose 147 H POC Glucose (mg/dL) Calcium 8.1 L Ferritin 1159.4 H Lactate Dehydrogenase 922 H C-Reactive Protein 260.4 H Total Protein 5.6 L Albumin 3.4 L Procalcitonin 06/30/20 06/30/20 07/01/20 08:34 20:53 06:56 RBC Hgb Hct Lymphocytes # PT INR APTT D-Dimer Sodium BUN Glucose POC Glucose (mg/dL) 280 H 201 H Calcium Ferritin Lactate Dehydrogenase C-Reactive Protein Total Protein Albumin Procalcitonin 0.24 H 07/01/20 07/01/20 11:35 15:49 RBC Hgb Hct Lymphocytes # PT INR APTT D-Dimer 1.59 H Sodium BUN Glucose POC Glucose (mg/dL) 207 H Calcium Ferritin Lactate Dehydrogenase C-Reactive Protein Total Protein Albumin Procalcitonin - Diagnostic Findings Chest x-ray: image reviewed Assessment and Plan Assessment: Acute hypoxemic respiratory failure secondary to COVID 19 19 pneumonitis/pneumonia. History of hyperlipidemia. History of hypertension. History of diabetes mellitus. History of hypothyroidism. History of atrial fibrillation. History of COPD/asthma. History of CVA. History of glaucoma. History of sleep apnea syndrome, currently on CPAP. History of cardiac ablation. History of DJD/osteoarthritis. Plan: Plan dated 06/29/2020. The patient was started on REM by infectious diseases. The patient will also get vitamin C, vitamin D3, and zinc. In addition, the patient should get Decadron, 6 mg orally every day. The patient's already on a factor X a inhibitor, so Lovenox will not have to be given. I did ask the patient while in bed to move about, going to his right side, left side, supine, and even proning himself if possible. We will continue to follow. Prognosis is guarded. We did speak to his nephew, who is a nurse in the intensive care unit. Time with Patient: Greater than 30
[2020-07-01] MEDS: metFORMIN 500 MG TAB PO SCH (17:43)
[2020-07-01] MEDS ORDERED: REMDESIVIR 100 MG in SODIUM CHLORIDE 0.9% 250 ML IVPB SCH (18:00)
[2020-07-01] MEDS: RIVAROXABAN 20 MG TAB PO SCH (19:36)
[2020-07-01 20:42] LABS: Glucose,Whole Blood 259 mg/dL (75-99)
[2020-07-01] MEDS: ATORVASTATIN 10 MG TAB PO SCH (21:14)
[2020-07-01] MEDS: LATANOPROST 0.005% OPHTH DROPS 2.5 ML BTL LEFT EYE SCH (21:15)
--- NOTE | 2020-07-01 22:01 | P.PN ---
Subjective Progress Note Date: 07/01/20 Principal diagnosis: COVID pneumonia 07/01/20: Pt on 10 LPM O2 this am, feeling short of breath and continues with cough. He is on remdesivir as well as oral decadron and COVID cocktail. No fever, chills. BP stable. Objective - Vital Signs Vital signs: Vital Signs Temp 97.8 F 07/01/20 17:44 Pulse 64 07/01/20 17:44 Resp 18 07/01/20 17:44 BP 150/70 07/01/20 17:44 Pulse Ox 88 L 07/01/20 17:44 Intake & Output 07/01/20 07/01/20 07/02/20 06:59 18:59 06:59 Intake Total 100 Output Total 300 450 Balance -200 -450 Weight 95.708 kg Intake: Oral 100 Output: Urine 300 450 Other: Voiding Method Urinal # Voids 1 3 - Exam General: well nourished, on high flow O2. Vitals reviewed Lungs: increased respiratory effort, no wheezes or rales CV: Regular rate and rhythm, no murmur. Peripheral pulses 2+ Abdomen: soft, nondistended, no organomegaly Skin: warm and dry. - Labs CBC & Chem 7: 06/30/20 08:34 06/30/20 08:34 Labs: Abnormal Lab Results - Last 24 Hours (Table) 07/01/20 07/01/20 07/01/20 Range/Units 06:56 11:35 15:49 D-Dimer 1.59 H (<0.60) mg/L FEU POC Glucose (mg/dL) 201 H 207 H (75-99) mg/dL 07/01/20 07/01/20 Range/Units 16:59 20:39 D-Dimer (<0.60) mg/L FEU POC Glucose (mg/dL) 258 H 259 H (75-99) mg/dL Microbiology - Last 24 Hours (Table) 06/30/20 15:00 Blood Culture - Preliminary Blood No Growth after 24 hours 06/30/20 15:15 Blood Culture - Preliminary Blood No Growth after 24 hours 06/30/20 10:35 Blood Culture - Preliminary Blood No Growth after 24 hours 06/30/20 10:25 Blood Culture - Preliminary Blood No Growth after 24 hours Assessment and Plan (1) Acute hypoxemic respiratory failure due to COVID-19 Current Visit: Yes Status: Acute Code(s): U07.1 - COVID-19; J96.01 - ACUTE RESPIRATORY FAILURE WITH HYPOXIA SNOMED Code(s): 289827415 (2) Chronic atrial fibrillation Current Visit: Yes Status: Acute Code(s): I48.20 - CHRONIC ATRIAL FIBRILLATION, UNSPECIFIED SNOMED Code(s): 698964307 (3) Pneumonia due to COVID-19 virus Current Visit: Yes Status: Acute Code(s): U07.1 - COVID-19; J12.82 - Pneumonia due to coronavirus disease 2019 SNOMED Code(s): 225293121101854790 Plan: Continue with current treatments, vit C, vit D, zinc, dexamethasone. Remdesivir per ID. Continue with xarelto. Pulmonary and ID following. Follow inflammatory markers
--- NOTE | 2020-07-02 00:24 | PN ---
PROGRESS NOTE DATE OF SERVICE: 07/01/2020. REASON FOR FOLLOWUP VISIT: Covid 19 pneumonia. INTERVAL HISTORY: Patient is currently afebrile. The patient mentioned feeling slightly better today. He is breathing comfortably. Patient denies having any chest pain. He did have some cough, not bringing up any sputum. No abdominal pain or diarrhea. PHYSICAL EXAMINATION: Blood pressure 150/70 with a pulse of 64, temperature 97.8. He is 90% on 10 L high- flow oxygen. General description is an elderly male up in the chair in no distress. Respiratory system: Unlabored breathing, decreased intensity breath sounds in the base, with no wheeze. Heart S1, S2. Regular rate and rhythm. ABDOMEN: Soft, no tenderness. LABS: D. dimer 1.59. DIAGNOSTIC IMPRESSION/PLAN: Patient with acute COVID-19 infection in this patient currently covered with dexamethasone, ascorbic acid, Xarelto, zinc, Remdesivir discontinued and Actemra has been ordered. Pulmonary is already managing the patient. ID was sign of , Please call back with any questions concerning infectious disease care. MMODL / IJN: [id number] / MTDD
[2020-07-02] MEDS: LEVOTHYROXINE 75 MCG TAB PO SCH (05:36)
[2020-07-02 06:56] LABS: Glucose,Whole Blood 184 mg/dL (75-99)
[2020-07-02] MEDS: MONTELUKAST 10 MG TAB PO SCH (07:40)
[2020-07-02] MEDS: MULTIVITAMINS, THERA 1 EACH TAB PO SCH (07:40)
[2020-07-02] MEDS: LORATADINE 10 MG TAB PO SCH (07:40)
[2020-07-02] MEDS: CHOLECALCIFEROL 25 MCG (1000 IU) TABLET PO SCH (07:41)
[2020-07-02] MEDS: ZINC SULFATE 220 MG CAP PO SCH (07:41)
[2020-07-02] MEDS: METOPROLOL SUCCINATE (ER) 50 MG TAB.ER.24H PO SCH ×2 (07:41→20:24)
[2020-07-02] MEDS: ASCORBIC ACID 500 MG TAB PO SCH ×2 (07:41→20:24)
[2020-07-02] MEDS: dexAMETHasone 2 MG TAB PO SCH (07:41)
[2020-07-02] MEDS: PANTOPRAZOLE 40 MG TABLET PO SCH (07:41)
[2020-07-02] MEDS: INSULIN ASPART (NovoLOG) 100 UNIT/ML VIAL SQ SCH ×4 (07:42→20:24)
[2020-07-02] MEDS: AMIODARONE 200 MG TAB PO SCH (07:42)
[2020-07-02] MEDS: LINAGLIPTIN 5 MG TABLET PO SCH (07:42)
[2020-07-02] MEDS: TIMOLOL 0.5% OPHTH DROPS 5 ML BTL BOTH EYES SCH ×2 (07:43→21:57)
[2020-07-02] MEDS: FISH OIL PO SCH (07:43)
[2020-07-02] MEDS: [UNRECOGNIZED DRUG - OTHER] PO SCH (07:43)
[2020-07-02] MEDS ORDERED: TOCILIZUMAB 800 MG in SODIUM CHLORIDE 0.9% 80 ML IV ONE (09:00)
[2020-07-02] MEDS: SYMBICORT 80-4.5 MCG INHALER INHALATION SCH ×2 (09:08→20:12)
[2020-07-02 11:38] LABS: Glucose,Whole Blood 233 mg/dL (75-99)
--- NOTE | 2020-07-02 12:14 | XR ---
EXAMINATION TYPE: XR chest 1V portable DATE OF EXAM: 07/02/2020 COMPARISON: 06/30/2020 INDICATION: COVID TECHNIQUE: Single frontal view of the chest is obtained. FINDINGS: The heart size is upper limits of normal. The pulmonary vasculature is normal. Diffuse peripheral increased lung markings are present. Findings are nonspecific but can be compatibl e with atypical pneumonia IMPRESSION: 1. Diffuse peripheral lung infiltrates can be compatible with atypical pneumonia
[2020-07-02] MEDS: NITROGLYCERIN SL TABS 0.4 MG TAB SUBLINGUAL PRN ×2 (13:35→14:40)
[2020-07-02] MEDS ORDERED: MORPHINE SULFATE 2 MG/ML SYRINGE IVP STA (14:00)
[2020-07-02] MEDS ORDERED: HEPARIN SODIUM 1,000 UN/ML (10ML VL) IV PRN (14:04)
[2020-07-02] MEDS ORDERED: FUROSEMIDE 10 MG/ML 2 ML VIAL IV ONE (14:15)
--- NOTE | 2020-07-02 14:16 | XR ---
EXAMINATION TYPE: XR chest 1V portable DATE OF EXAM: 07/02/2020 COMPARISON: 07/02/2020 earlier exam INDICATION: Follow-up chest pain, short of breath TECHNIQUE: Single frontal view of the chest is obtained. FINDINGS: The heart size is normal. The pulmonary vasculature is normal. Patchy bilateral lung infiltrates are worsening over the interval. Upper lung lopez has some preserv ation IMPRESSION: 1. Patchy bilateral infiltrates worsening since the mid and lower lung lopez
[2020-07-02 14:20] LABS: C Reactive Protein 9.2 mg/dL (0.0-0.8)
[2020-07-02] MEDS: HEPARIN SOD,PORK IN 0.45% NACL 25,000 UNIT in 0.45% NACL 1 250ML.BAG IV SCH (14:29)
--- NOTE | 2020-07-02 14:58 | P.PN ---
Subjective Progress Note Date: 07/02/20 Principal diagnosis: Acute hypoxic respiratory failure secondary to COVID 19 pneumonia 85-year-old male, with a history of COPD, diabetes, and atrial fibrillation, who presents to the emergency department via EMS, with complaints of increasing shortness of breath for 2 days or so prior to admission. The patient apparently tested positive for COVID 3 days ago. The patient also complains of intermittent fevers, shortness of breath, muscle aches, joint aches, decreased appetite, and generally just not feeling well with significant fatigue. He apparently could not take a deep breath and for that reason asked to be evaluated. White count 4.6, he will 12.3, hematocrit 35.9, platelet count 161,000. PT 12.1, INR 1.2, and PTT 32.0. D-dimer is 1.59. Sodium 132, potassium 3.5, chlorides 101, CO2 24, anion gap 7, BUN 21, creatinine 1.05. LDH was 922, and C-reactive protein is 260. Pro-calcitonin level is 0.24. Chest x-ray showed bilateral infiltrates, consistent with COVID 19 pneumonia. The patient was initially on 5 L nasal cannula, but is now on 10 L high flow nasal cannula. Patient was reevaluated today on 07/02/2020, patient was seen by Dr. Silveira on consultation yesterday for his pneumonia, patient was started on REM by infectious disease. He is also getting the Covid 19 cocktail Decadron vitamin C vitamin D and zinc. Patient is maintained on antegrade ablation therapy for his chronic atrial fibrillation. As I walked in to see the patient, he was co mplaining of severe substernal chest discomfort. Patient had the pain for about 20 minutes before I saw him. A stat EKG was done, showed slight elevation of the ST segments in the inferior leads, his troponin was ordered. Patient was given nitroglycerin. And I recommended a stat cardiology consultation on this patient. I also recommended a follow-up chest x-ray it showed worsening patchy bilateral infiltrates involving both lungs patient is on high flow oxygen at 15 L, and his O2 saturation is ranging between 86-90%. May have to consider BiPAP if his oxidation does not improve. And again I have recommended a stat cardiology evaluation for his chest pain. D-dimer is 2.35. His LDH is 517 slightly better compared to yesterday C-reactive protein is significantly improved compared to yesterday, 9.2. Pro-calcitonin is 0.24, slightly elevated. Blood cultures have been negative since admission. Objective - Vital Signs Vital signs: Vital Signs Temp 98.2 F 07/02/20 13:03 Pulse 66 07/02/20 13:32 Resp 24 07/02/20 13:03 BP 174/102 07/02/20 13:32 Pulse Ox 86 L 07/02/20 13:03 Intake & Output 07/01/20 07/02/20 07/02/20 18:59 06:59 18:59 Output Total 450 Balance -450 Output: Urine 450 Other: Voiding Method Urinal Urinal # Voids 3 4 - Exam Physical Exam: Revealed 85-year-old white male in mild distress. On high flow oxygen. Head: Atraumatic, normocephalic. HEENT:[Neck is supple.] [No neck masses.] [No thyromegaly.] [No JVD.] Chest: [Symmetrical chest expansion, crackles at the bases bilaterally, no rhonchi no wheezes. Cardiac Exam: [Normal S1 and S2, no S3 gallop, no murmur.] Abdomen: [Soft, nontender, no megaly, no rebound, no guarding, normal bowel sounds.] Extremities: [No clubbing, no edema, no cyanosis.] Neurological Exam: [No focal neurologic deficit.] Alert and oriented 3. Psychiatric: Normal mood, affect and normal mental status exam. Skin: No rashes. - Labs CBC & Chem 7: 06/30/20 08:34 06/30/20 08:34 Labs: Abnormal Lab Results - Last 24 Hours (Table) 07/01/20 07/01/20 07/01/20 Range/Units 15:49 16:59 20:39 D-Dimer 1.59 H (<0.60) mg/L FEU POC Glucose (mg/dL) 258 H 259 H (75-99) mg/dL Lactate Dehydrogenase (120-246) U/L C-Reactive Protein (0.0-0.8) mg/dL 07/02/20 07/02/20 07/02/20 Range/Units 06:55 07:11 07:11 D-Dimer 2.35 H (<0.60) mg/L FEU POC Glucose (mg/dL) 184 H (75-99) mg/dL Lactate Dehydrogenase 517 H (120-246) U/L C-Reactive Protein 9.2 H (0.0-0.8) mg/dL 07/02/20 Range/Units 11:36 D-Dimer (<0.60) mg/L FEU POC Glucose (mg/dL) 233 H (75-99) mg/dL Lactate Dehydrogenase (120-246) U/L C-Reactive Protein (0.0-0.8) mg/dL Microbiology - Last 24 Hours (Table) 06/30/20 10:25 Blood Culture - Preliminary Blood No Growth after 48 hours 06/30/20 10:35 Blood Culture - Preliminary Blood No Growth after 48 hours 06/30/20 15:00 Blood Culture - Preliminary Blood No Growth after 24 hours 06/30/20 15:15 Blood Culture - Preliminary Blood No Growth after 24 hours Assessment and Plan Assessment: Impression: Acute hypoxic respiratory failure secondary to severe case of covid 19 pneumonitis. Chest pain, possible acute coronary syndrome, stat cardiac consultation was initiated. Benign essential hypertension. Type 2 diabetes. History of underlying COPD. History of obstructive sleep apnea syndrome maintained on CPAP. History of cardiac ablation or atrial fibrillation Chronic atrial fibrillation. Recommendation: Patient was given REM Patient is now on vitamin C, vitamin D and zinc. Patient is receiving Decadron. Continue Eliquis. No need for Lovenox. Cardiology to see the patient on consultation. Would consider toci and convalescent plasma in this patient, however will concerned about his elevated pro calcitonin. Prognosis is definitely guarded. We'll continue to follow. Time with Patient: Less than 30
[2020-07-02 15:00] LABS: Basophils % (A) 0 %; Eosinophils % (A) 0 %; HCT 36.5 % (39.0-53.0); HGB 12.9 gm/dL (13.0-17.5); Lymphocytes # (A) 0.3 k/uL (1.0-4.8); Lymphocytes % (A) 2 %; MCH 32.5 pg (25.0-35.0); MCHC 35.4 g/dL (31.0-37.0); MCV 91.9 fL (80.0-100.0); Mean Platelet Volume 7.7; Monocytes # (A) 0.4 k/uL (0-1.0); Monocytes % (A) 3 %; Neutrophils % (A) 93 %; Platelet Count 278 k/uL (150-450); RBC 3.98 m/uL (4.30-5.90); RDW 12.6 % (11.5-15.5); WBC 12.9 k/uL (3.8-10.6)
[2020-07-02 15:06] LABS: Partial Thromboplastin Time 22.8 sec (22.0-30.0); Prothrombin Time 10.8 sec (9.0-12.0)
[2020-07-02] MEDS ORDERED: HYDROmorphone 0.5 MG/0.5 ML SYRINGE IVP PRN (15:11)
[2020-07-02] MEDS ORDERED: NITROGLYCERIN OINT 1 INCH/GM PACKET TOPICAL SCH (16:00)
--- NOTE | 2020-07-02 16:10 | P.CRDCN ---
History of Present Illness Consult date: 07/02/20 History of present illness: CHIEF COMPLAINT: Chest pain HISTORY OF PRESENT ILLNESS: This is a 85-year-old male with a past medical history significant for atrial fibrillation, obstructive sleep apnea, COPD, hypertension, and diabetes mellitus. Patient follows in the office with Dr. Gomez. We have been asked to see the patient in consultation for chest pain. Patient is admitted to the hospital secondary to Covid. Patient began having chest pain this afternoon. An EKG was completed revealing ST elevation in inferior leads. A STAT cardiology consult was initiated. Patient was evaluated at the bedside. Patient continues to report chest discomfort at the time of examination. He denies radiation of the pain. He denies nausea or vomiting. He is currently on a nonrebreather. Blood pressure with a systolic in the 90s to 110s. DIAGNOSTICS: EKG reveals sinus mechanism with ST elevation inferiorly Chest xray patchy bilateral infiltrates Laboratory data: WBC 12.9. Hemoglobin 12.9. Platelet count 278. Sodium 132. Potassium 3.5. BUN 21. Crit and 1.05. Lactic acid 1.0. Magnesium 2.0. Current home cardiac medications include Zocor 20 mg daily, Xarelto 20 mg daily, metoprolol succinate 50 mg twice a day, lisinopril-hydrochlorothiazide 20-12.5mg daily, amiodarone 200 mg daily REVIEW OF SYSTEMS: Thorough review of systems not completed secondary to limited evaluation/examination due to Covid19 PHYSICAL EXAM: Thorough physical exam not completed secondary to limited evaluation/examination due to Covid19 ASSESSMENT: Covid 19 Acute hypoxic respiratory failure Inferior STEMI Paroxysmal atrial fibrillation, on anticoagulation with Xarelto COPD Hypertension Diabetes mellitus Obstructive sleep apnea PLAN: Discussed findings with patient at the bedside and recommendations for cardiac catheterization. Patient states he did not want any invasive procedures to be performed. Patient is currently a DNR. I explained the risks of not having cardiac cath including . Patient stated "That is fine. I understand. If it's my time, its my time. I am ready to go". Offered to treat patient medically with medications and keep him as comfortable as possible. Patient was in agreement. Nurse, Michael, at bedside at time of discussion with patient as well. The patient did receive morphine and sublingual nitro twice with minimal improvement in his chest pain. Dilaudid ordered per internal medicine as well. Patient will be placed on nitro ip for comfort and transferred to the selective care unit. Discontinue Xarelto and begin Heparin drip per Dr. Perrin. Give 20mg IV lasix. Continue current dose of metoprolol. Increase lipitor to 80mg daily. Add aspirin 81mg daily. Patient was taking lisinopril on an outpatient basis. Resume lisinopril when blood pressure able to tolerate. Nurse called patients Deyanira slade and updated her on patient condition and plan of care I personally called Alirio Stinson (with patients permission), patients nephew, who works at this facility as an CONTROL ROOM OPERATOR and updated him on patient condition, plan of care, and patients wishes to not undergo cardiac cath and be treated medically. We will obtain troponins x 3. Obtain 2-D echo to assess cardiac structure and function. Further recommendations pending patient's course Nurse practitioner note has been reviewed by physician. Signing provider agrees with the documented findings, assessment, and plan of care. Past Medical History Past Medical History: Atrial Fibrillation, Asthma, COPD, CVA/TIA, Diabetes Mellitus, Eye Disorder, GERD/Reflux, Hyperlipidemia, Hypertension, Musculoskeletal Disorder, Osteoarthritis (OA), Pneumonia, Prostate Disorder, Sleep Apnea/CPAP/BIPAP, Thyroid Disorder Additional Past Medical History / Comment(s): Glaucoma lt eye, Past Stroke behind rt eye, "i have a blotch in the middle of my vision rt eye." hx chronic sinusitis, no cpap used, frequent nighttime urination. Chronic Lumbar Back pain. "Balance isn't what it used to be." History of Any Multi-Drug Resistant Organisms: None Reported Past Surgical History: Adenoidectomy, Back Surgery, Cardiac Ablation, Hernia Repair, Orthopedic Surgery, Prostate Surgery, Tonsillectomy Additional Past Surgical History / Comment(s): Mastoidectomy Rt ear, Se ptoplasty, TURP, sandee cataracts-lens implants, colonoscopy, vasectomy, Cardioversion, lt thumb trigger finger sx, rt thumb 2nd, 3rd finger trigger finger sx. Bilat Ing Hernia. Back surg 2002, Laminectomy & fusion L4-L5. Pain procedures Past Anesthesia/Blood Transfusion Reactions: No Reported Reaction Past Psychological History: No Psychological Hx Reported Smoking Status: Former smoker Past Alcohol Use History: Rare Additional Past Alcohol Use History / Comment(s): SMOKED AGE 17, QUIT 1972, 4 PPD. Past Drug Use History: None Reported - Past Family History Sister(s) Family Medical History: Cancer Medications and Allergies Home Medications Medication Instructions Recorded Confirmed Type Fluticasone/Salmeterol [Advair 1 puff INHALATION RT-BID 03/31/15 06/30/20 History 250-50 Diskus] Montelukast [Singulair] 10 mg PO DAILY 03/31/15 06/30/20 History Omeprazole [PriLOSEC] 20 mg PO DAILY 03/31/15 06/30/20 History Rivaroxaban [Xarelto] 20 mg PO AC-SUPPER 03/31/15 06/30/20 History Sildenafil Citrate [Viagra] 100 mg PO DIRECTED PRN 03/01/18 06/30/20 History Simvastatin [Zocor] 20 mg PO HS 03/01/18 06/30/20 History Travoprost [Travatan Z 0.004%] 1 drop LEFT EYE HS 03/03/18 06/30/20 History Cetirizine HCl [Zyrtec] 10 mg PO DAILY 06/01/18 06/30/20 History Lisinopril-Hctz 20-12.5 mg 1 tab PO DAILY 06/01/18 06/30/20 History [Zestoretic 20-12.5] metFORMIN HCL [Glucophage] 250 mg PO AC-SUPPER 06/01/18 06/30/20 History sitaGLIPtin [Januvia] 100 mg PO DAILY 06/01/18 06/30/20 History Levothyroxine Sodium [Synthroid] 75 mcg PO DAILY 06/14/18 06/30/20 History Amiodarone [Cordarone] 200 mg PO DAILY #90 tab 06/16/18 06/30/20 Rx Metoprolol Succinate [Toprol XL] 50 mg PO BID 04/17/20 06/30/20 History Timolol 0.5% Ophth Gel Forming 1 drop BOTH EYES BID 04/17/20 06/30/20 History [Timoptic-Xe] Azithromycin [Zithromax Z-pack (6 See Taper PO DAILY 06/30/20 06/30/20 History tabs)] Multivitamins, Thera [Multivitamin 1 tab PO DAILY 06/30/20 06/30/20 History (formulary)] [place]-Matt(Fish Oil) 1 cap PO DAILY 06/30/20 06/30/20 History Opti-Floride 1 tab PO DAILY 06/30/20 06/30/20 History Vitamin D3(Unknown Dose) 1 tab PO DAILY 06/30/20 06/30/20 History Allergies Allergy/AdvReac Type Severity Reaction Status Date / Time No Known Allergies Allergy Verified 06/30/20 08:25 Physical Exam Vitals: Vital Signs Temp Pulse Resp BP Pulse Ox 07/02/20 15:47 97.5 F L 07/02/20 15:44 129/76 07/02/20 14:10 122/74 07/02/20 13:44 89/52 86 L 07/02/20 13:40 53 L 118/67 86 L 07/02/20 13:34 66 174/102 92 L 07/02/20 13:32 66 174/102 07/02/20 13:03 98.2 F 66 24 168/93 86 L 07/02/20 11:02 97.6 F 61 22 130/68 90 L 07/02/20 08:00 97.6 F 61 22 130/68 90 L 07/02/20 05:27 97.6 F 66 15 141/77 89 L 07/02/20 02:04 97.0 F L 68 18 155/70 89 L 07/01/20 22:24 97.1 F L 72 21 179/70 90 L 07/01/20 20:00 64 18 07/01/20 17:44 97.8 F 64 18 150/70 88 L Intake and Output 07/02/20 07/02/20 07/02/20 06:59 14:59 22:59 Other: Voiding Method Urinal # Voids 4 Results 07/02/20 14:23 06/30/20 08:34 Cardiac Enzymes 07/02/20 07/02/20 Range/Units 07:11 13:19 Lactate Dehydrogenase 517 H (120-246) U/L Troponin I <0.012 (0.000-0.034) ng/mL Coagulation 07/02/20 Range/Units 14:23 PT 10.8 (9.0-12.0) sec APTT 22.8 (22.0-30.0) sec CBC 07/02/20 Range/Units 14:23 WBC 12.9 H (3.8-10.6) k/uL RBC 3.98 L (4.30-5.90) m/uL Hgb 12.9 L (13.0-17.5) gm/dL Hct 36.5 L (39.0-53.0) % Plt Count 278 (150-450) k/uL Current Medications Generic Name Dose Route Start Last Admin Trade Name Freq PRN Reason Stop Dose Admin Acetaminophen 650 mg 07/01/20 12:57 07/01/20 13:25 Acetaminophen Tab 325 Mg Tab PO 650 mg Q6HR PRN Administration Fever and/ or Pain Amiodarone HCl 200 mg 07/01/20 09:00 07/02/20 07:42 Amiodarone 200 Mg Tab PO 200 mg DAILY MEHDI Administration Ascorbic Acid 500 mg 06/30/20 21:00 07/02/20 07:41 Ascorbic Acid 500 Mg Tab PO 500 mg BID MEHDI Administration Atorvastatin Calcium 10 mg 06/30/20 21:00 07/01/20 21:14 Atorvastatin 10 Mg Tab PO 10 mg HS MEHDI Administration Budesonide/Formoterol Fumarate 2 puff 06/30/20 20:00 07/02/20 09:08 Symbicort 80-4.5 Mcg Inhaler INHALATION 2 puff RT-BID MEHDI Administration Cholecalciferol 25 mcg 07/01/20 09:00 07/02/20 07:41 Cholecalciferol 25 Mcg (1000 Iu) Tablet PO 25 mcg DAILY MEHDI Administration Dexamethasone 6 mg 06/30/20 13:45 07/02/20 07:41 Dexamethasone 2 Mg Tab PO 6 mg DAILY MEHDI Administration Guaifenesin 200 mg 06/30/20 22:49 07/01/20 09:26 Guaifenesin Syrup 100mg/5ml 200 Mg/10 Ml Cup PO 200 mg TID PRN Administration Cough Heparin Sodium (Porcine) 0 unit 07/02/20 14:04 Heparin Sodium 1,000 Un/Ml (10ml Vl) IV PER PROTOCOL PRN Low PTT Protocol Hydromorphone HCl 1 mg 07/02/20 15:21 Hydromorphone 1 Mg/Ml 1 Ml Syringe IVP Q4HR PRN Pain Heparin Sodium/Sodium Chloride 250 mls @ 10.001 mls/hr 07/02/20 14:15 07/02/20 14:29 25,000 unit/ Sodium Chloride IV 10.45 units/kg/hr .Q24H MEHDI 10.001 mls/hr Administration Protocol 10.45 UNITS/KG/HR Nitroglycerin/Dextrose 50 mg/ 250 mls @ 3 mls/hr 07/02/20 15:45 IV Solution IV .Q24H MEHDI Protocol 10 MCG/MIN Insulin Aspart 0 unit 06/30/20 17:30 07/02/20 12:09 Insulin Aspart (Novolog) 100 Unit/Ml Vial SQ 3 unit ACHS MEHDI Administration Protocol Latanoprost 1 drops 06/30/20 21:00 07/01/20 21:15 Latanoprost 0.005% Ophth Drops 2.5 Ml Btl LEFT EYE 1 drops HS MEHDI Administration Levothyroxine Sodium 75 mcg 07/01/20 06:30 07/02/20 05:36 Levothyroxine 75 Mcg Tab PO 75 mcg 0630 MEHDI Administration Linagliptin 5 mg 07/01/20 09:00 07/02/20 07:42 Linagliptin 5 Mg Tablet PO 5 mg DAILY MEHDI Administration Loratadine 10 mg 07/01/20 09:00 07/02/20 07:40 Loratadine 10 Mg Tab PO 10 mg DAILY MEHDI Administration Melatonin 3 mg 06/30/20 22:50 07/01/20 00:17 Melatonin 3 Mg Tablet PO 3 mg HS PRN Administration Insomnia Metformin HCl 250 mg 06/30/20 17:30 07/01/20 17:43 Metformin 500 Mg Tab PO 250 mg AC-SUPPER MEHDI Administration Metoprolol Succinate 50 mg 06/30/20 21:00 07/02/20 07:41 Metoprolol Succinate (Er) 50 Mg Tab.Er.24h PO 50 mg BID MEHDI Administration Montelukast Sodium 10 mg 07/01/20 09:00 07/02/20 07:40 Montelukast 10 Mg Tab PO 10 mg DAILY MEHDI Administration Multivitamins 1 each 07/01/20 09:00 07/02/20 07:40 Multivitamins, Thera 1 Each Tab PO 1 each DAILY MEHDI Administration Nitroglycerin 0.4 mg 07/02/20 13:28 07/02/20 14:40 Nitroglycerin Sl Tabs 0.4 Mg Tab SUBLINGUAL 0.4 mg Q5M PRN Administration Chest Pain Non-Formulary Medication 1 cap 07/01/20 09:00 07/02/20 07:43 [place](Fish Oil) PO Not Given DAILY MEHDI Pantoprazole Sodium 40 mg 07/01/20 09:00 07/02/20 07:41 Pantoprazole 40 Mg Tablet PO 40 mg DAILY MEHDI Administration Timolol Maleate 1 drops 06/30/20 21:00 07/02/20 07:43 Timolol 0.5% Ophth Drops 5 Ml Btl BOTH EYES 1 drops BID MEHDI Administration Zinc Sulfate 220 mg 06/30/20 13:45 07/02/20 07:41 Zinc Sulfate 220 Mg Cap PO 220 mg DAILY MEHDI Administration Intake and Output 07/02/20 07/02/20 07/02/20 06:59 14:59 22:59 Other: Voiding Method Urinal # Voids 4 07/02/20 14:23 06/30/20 08:34
[2020-07-02 16:38] LABS: Glucose,Whole Blood 279 mg/dL (75-99)
--- NOTE | 2020-07-02 16:53 | P.PN ---
Subjective Progress Note Date: 07/02/20 This is an 85-year-old gentleman admitted with: Pneumonia, maintained on Colace cocktail. Remdesevir discontinued as per ID with TOCI being considered. Denies chest pain, palpitations but complaining of some shortness of breath. Currently maintaining O2 sats in the 90s on 15 L high flow nasal cannula. Chest x-ray reporting diffuse peripheral lung infiltrates compatible with atypical pneumonia. D-dimer 2.35, LDH, CRP improving. Pro-calcitonin 0.24. Later in the afternoon patient complained of substernal nonradiating chest pain, stat EKG completed reporting ST elevation in inferior leads, troponin less than 0.012, systolic blood pressure ranging 90s to 120s, with stat cardiology consult initiated. Repeat chest x-ray suggestive of worsening patchy bilateral infiltrates in the mid and lower lung lopez. Objective - Vital Signs Vital signs: Vital Signs Temp 97.5 F L 07/02/20 15:47 Pulse 53 L 07/02/20 13:40 Resp 24 07/02/20 13:03 BP 129/76 07/02/20 15:44 Pulse Ox 86 L 07/02/20 13:44 Intake & Output 07/01/20 07/02/20 07/02/20 18:59 06:59 18:59 Output Total 450 Balance -450 Output: Urine 450 Other: Voiding Method Urinal Urinal # Voids 3 4 - Exam - Exam General:Sitting up in bed, on high flow O2. Vitals reviewed Lungs: increased respiratory effort, no wheezes, bibasilar crackles CV: Regular rate and rhythm, no murmur. Peripheral pulses 2+ Abdomen: soft, nondistended, no organomegaly Skin: warm and dry. - Labs CBC & Chem 7: 07/02/20 14:23 06/30/20 08:34 Labs: Abnormal Lab Results - Last 24 Hours (Table) 07/01/20 07/01/20 07/01/20 Range/Units 15:49 16:59 20:39 WBC (3.8-10.6) k/uL RBC (4.30-5.90) m/uL Hgb (13.0-17.5) gm/dL Hct (39.0-53.0) % Neutrophils # (1.3-7.7) k/uL Lymphocytes # (1.0-4.8) k/uL D-Dimer 1.59 H (<0.60) mg/L FEU POC Glucose (mg/dL) 258 H 259 H (75-99) mg/dL Lactate Dehydrogenase (120-246) U/L C-Reactive Protein (0.0-0.8) mg/dL 07/02/20 07/02/20 07/02/20 Range/Units 06:55 07:11 07:11 WBC (3.8-10.6) k/uL RBC (4.30-5.90) m/uL Hgb (13.0-17.5) gm/dL Hct (39.0-53.0) % Neutrophils # (1.3-7.7) k/uL Lymphocytes # (1.0-4.8) k/uL D-Dimer 2.35 H (<0.60) mg/L FEU POC Glucose (mg/dL) 184 H (75-99) mg/dL Lactate Dehydrogenase 517 H (120-246) U/L C-Reactive Protein 9.2 H (0.0-0.8) mg/dL 07/02/20 07/02/20 Range/Units 11:36 14:23 WBC 12.9 H (3.8-10.6) k/uL RBC 3.98 L (4.30-5.90) m/uL Hgb 12.9 L (13.0-17.5) gm/dL Hct 36.5 L (39.0-53.0) % Neutrophils # 12.0 H (1.3-7.7) k/uL Lymphocytes # 0.3 L (1.0-4.8) k/uL D-Dimer (<0.60) mg/L FEU POC Glucose (mg/dL) 233 H (75-99) mg/dL Lactate Dehydrogenase (120-246) U/L C-Reactive Protein (0.0-0.8) mg/dL Microbiology - Last 24 Hours (Table) 06/30/20 10:25 Blood Culture - Preliminary Blood No Growth after 48 hours 06/30/20 10:35 Blood Culture - Preliminary Blood No Growth after 48 hours 06/30/20 15:00 Blood Culture - Preliminary Blood No Growth after 24 hours 06/30/20 15:15 Blood Culture - Preliminary Blood No Growth after 24 hours Assessment and Plan Assessment: Acute Covid-19 pneumonia Acute hypoxic respiratory failure secondary to the above Acute chest pain, acute inferior STEMI, patient refusing cardiac catheterization Chronic atrial fibrillation History of cardiac ablation COPD Obstructive sleep apnea, maintained on CPAP Plan: Continue on current medication regime ,monitoring and symptomatic treatment. Evaluated by cardiology, patient refusing cardiac catheterization. Maximizing medical therapy.Transfer to [facility] care telemetry unit to facilitate better pain management of chest pain-nitroglycerin drip, in addition to Dilaudid. Staff reported patient did not receive any relief from morphine. Anticoagulated on heparin drip. Serial troponins, echo ordered, pending. Continue on Covid regimen. Prognosis guarded given multiple complex medical issues. The impression and plan of care has been dictated as directed. : I performed a history and examination of this patient, discussed the same with the dictator. I agree with the dictator's note ,documented as a scribe. Any additional findings or plans will be noted.
[2020-07-02] MEDS: metFORMIN 500 MG TAB PO SCH (16:56)
[2020-07-02] MEDS: NITROGLYCERIN-D5W PMX 50 MG in DEXTROSE/WATER 1 250ML.BAG IV SCH (19:29)
[2020-07-02 20:14] LABS: Glucose,Whole Blood 244 mg/dL (75-99)
[2020-07-02] MEDS: ATORVASTATIN 80 MG TAB PO SCH (20:24)
[2020-07-02] MEDS: LATANOPROST 0.005% OPHTH DROPS 2.5 ML BTL LEFT EYE SCH (21:57)
[2020-07-02] MEDS: HYDROmorphone 1 MG/ML 1 ML SYRINGE IVP PRN (22:00)
[2020-07-03] MEDS: LEVOTHYROXINE 75 MCG TAB PO SCH (05:03)
[2020-07-03 06:05] LABS: Glucose,Whole Blood 189 mg/dL (75-99)
[2020-07-03] MEDS: INSULIN ASPART (NovoLOG) 100 UNIT/ML VIAL SQ SCH ×4 (06:38→20:48)
[2020-07-03] MEDS ORDERED: BENZOCAINE/MENTHOL LOZENG 1 EACH LOZENGE MUCOUS MEM PRN (08:52)
[2020-07-03] MEDS: MONTELUKAST 10 MG TAB PO SCH (09:05)
[2020-07-03] MEDS: CHOLECALCIFEROL 25 MCG (1000 IU) TABLET PO SCH (09:05)
[2020-07-03] MEDS: dexAMETHasone 2 MG TAB PO SCH (09:05)
[2020-07-03] MEDS: METOPROLOL SUCCINATE (ER) 50 MG TAB.ER.24H PO SCH ×2 (09:05→20:48)
[2020-07-03] MEDS: LORATADINE 10 MG TAB PO SCH (09:05)
[2020-07-03] MEDS: LINAGLIPTIN 5 MG TABLET PO SCH (09:05)
[2020-07-03] MEDS: AMIODARONE 200 MG TAB PO SCH (09:05)
[2020-07-03] MEDS: PANTOPRAZOLE 40 MG TABLET PO SCH (09:05)
[2020-07-03] MEDS: MULTIVITAMINS, THERA 1 EACH TAB PO SCH (09:05)
[2020-07-03] MEDS: ASCORBIC ACID 500 MG TAB PO SCH ×2 (09:05→20:48)
[2020-07-03] MEDS: ASPIRIN 81 MG PO SCH (09:05)
[2020-07-03] MEDS: ZINC SULFATE 220 MG CAP PO SCH (09:05)
[2020-07-03] MEDS: LORazepam 2 MG/ML INJ IV PRN ×2 (09:06→22:21)
[2020-07-03] MEDS: [UNRECOGNIZED DRUG - OTHER] PO SCH (09:39)
[2020-07-03] MEDS: FISH OIL PO SCH (09:39)
[2020-07-03] MEDS: SYMBICORT 80-4.5 MCG INHALER INHALATION SCH ×2 (09:41→20:13)
[2020-07-03] MEDS: TIMOLOL 0.5% OPHTH DROPS 5 ML BTL BOTH EYES SCH ×2 (10:22→22:20)
[2020-07-03 11:49] LABS: HCT 35.4 % (39.0-53.0); HGB 12.6 gm/dL (13.0-17.5); MCH 32.9 pg (25.0-35.0); MCHC 35.5 g/dL (31.0-37.0); MCV 92.9 fL (80.0-100.0); Mean Platelet Volume 7.6; Platelet Count 261 k/uL (150-450); RBC 3.82 m/uL (4.30-5.90); RDW 12.8 % (11.5-15.5); WBC 11.6 k/uL (3.8-10.6)
--- NOTE | 2020-07-03 12:00 | ECHOF ---
Referral Reason:LV function, STEMI MEASUREMENTS -------- HEIGHT: 180.3 cm WEIGHT: 95.7 kg BP: 129/76 RVIDd: 3.7 cm (< 3.3) IVSd: 1.4 cm (0.6 - 1.1) LVIDd: 4.6 cm (3.9 - 5.3) LVPWd: 1.5 cm (0.6 - 1.1) IVSs: 2.1 cm LVIDs: 2.7 cm LVPWs: 2.0 cm LA Diam: 4.0 cm (2.7 - 3.8) LAESV Index (A-L): 30.35 ml/m Ao Diam: 4.2 cm (2.0 - 3.7) AV Cusp: 1.2 cm (1.5 - 2.6) MV EXCURSION: 14.382 mm (> 18.000) MV EF SLOPE: 41 mm/s (70 - 150) EPSS: 0.8 cm MV E Conrado: 1.08 m/s MV DecT: 233 ms MV A Conrado: 0.81 m/s MV E/A Ratio: 1.33 AV maxP.98 mmHg AV meanP.84 mmHg RAP: 5.00 mmHg RVSP: 35.26 mmHg FINDINGS -------- Sinus rhythm. This was a technically difficult study with suboptimal apical views. The left ventricular size is normal. There is moderate concentric left ventricular hypertrophy. O verall left ventricular systolic function is normal with, an EF between 55 - 60 %. The right ventricle is mildly enlarged. LA is midly dilated 29-33ml/m2. The right atrium is normal in size. 5.0mg of Lumason was utilized for enhancement of images Interatrial and interventricular septum intact. There is moderate aortic valve sclerosis. There is mild aortic stenosis present. Peak/mean gradie nt across the Aortic Valve is 32.98mmHg / 18.84mmHg. Mild mitral regurgitation is present. Mild tricuspid regurgitation present. There is mild pulmonary hypertension. The right ventricular systolic pressure, as measured by Doppler, is 35.26mmHg. Trace/mild (physiologic) pulmonic regurgitation. The aortic root is dilated measuring 4.2cm. Normal inferior vena cava with normal inspiratory collapse consistent with estimated right atrial pre ssure of 5 mmHg. There is no pericardial effusion. CONCLUSIONS -------- 1. The left ventricular size is normal. 2. There is moderate concentric left ventricular hypertrophy. 3. Overall left ventricular systolic function is normal with, an EF between 55 - 60 %. 4. The right ventricle is mildly enlarged. 5. LA is midly dilated 29-33ml/m2. 6. 5.0mg of Lumason was utilized for enhancement of images 7. There is moderate aortic valve sclerosis. 8. There is mild aortic stenosis present. 9. Peak/mean gradient across the Aortic Valve is 32.98mmHg / 18.84mmHg. 10. Mild mitral regurgitation is present. 11. Mild tricuspid regurgitation present. 12. There is mild pulmonary hypertension. 13. The right ventricular systolic pressure, as measured by Doppler, is 35.26mmHg. 14. Trace/mild (physiologic) pulmonic regurgitation. 15. The aortic root is dilated measuring 4.2cm. 16. There is no pericardial effusion. HIM ANALYST: Aissatou Pino RDCS
[2020-07-03 12:03] LABS: Glucose,Whole Blood 227 mg/dL (75-99)
[2020-07-03 12:46] LABS: African American GFR (CKD) >90 (>60 ml/min/1.73 sqM); Anion Gap 9 mmol/L; Blood Urea Nitrogen 33 mg/dL (9-20); Calcium 8.1 mg/dL (8.4-10.2); Carbon Dioxide 25 mmol/L (22-30); Chloride 101 mmol/L (98-107); Glucose 228 mg/dL (74-99); Non-African American GFR(CKD) 80 (>60 ml/min/1.73 sqM); Potassium 3.6 mmol/L (3.5-5.1); Sodium 135 mmol/L (137-145)
--- NOTE | 2020-07-03 15:05 | P.PN ---
Subjective This is a 85-year-old male with a past medical history significant for paroxysmal atrial fibrillation, obstructive sleep apnea, COPD, hypertension, and diabetes mellitus. Patient follows in the office with Dr. Gomez. We have been asked to see the patient in consultation for chest pain. Patient is admitted to the hospital on 06/30/20 secondary to Covid-19. Current home cardiac medications include Zocor 20 mg daily, Xarelto 20 mg daily, metoprolol succinate 50 mg twice a day, lisinopril-hydrochlorothiazide 20-12.5mg daily, amiodarone 200 mg daily. On 07/02/20: Patient began having chest pain this afternoon. An EKG was completed revealing sinus mechanism with ST elevation in inferior leads. A STAT cardiology consult was initiated. Patient continued to report chest discomfort at the time of examination. He denied radiation of the pain, nausea or vomiting. He was on a nonrebreather. Chest xray patchy bilateral infiltrates. Recommendations for cardiac catheterization was discussed with patient. Patient states he did not want any invasive procedures to be performed. Patient is currently a DNR. The risk of not having cardiac cath including was discussed with patient. Patient stated "That is fine. I understand. If it's my time, its my time. I am ready to go". Patient in agreement to be treated medically with medications and keep him as comfortable as possible. Patient started on heparin drip, given 20mg IV Lasix, metoprolol succinate 50mg BID, Lipitor increased to 80mg daily, Aspirin 81mg daily. Dilaudid ordered per [facility] as well. Patient will be placed on nitro drip for comfort and transferred to the selective care unit. 07/03/2020: Patient seen and examined at bedside. Patient is not clear on if he wants medical management vs cardiac catheterization. Recommendations for cardiac catheterization was discussed again with the patient. Patient's family members were contacted with patient's permission, with no response. Patient appears lethargic. Keeps stating "whatever you guys want to do". Patient doesn't appear to understand the procedure with cardiac catheterization. BP 136/74, HR 65, tachypneic 30s afebrile, 82% on non rebreather. Spoke with + nurse that states she's also been trying to contact family members. Troponin 0.09--> 1.29. Laboratory data reviewed. He'll function stable serum creatinine 0.88 Echocardiogram reviewed with left ventricular systolic function is normal with EF between 5560 percent, LA is mildly dilated, mild aortic stenosis, mean gradi ent of 18mmHg, mild MR, mild TR, mild pulmonary hypertension. PHYSICAL EXAM: Thorough physical exam not completed secondary to limited evaluation/examination due to Covid19 ASSESSMENT: Covid 19 Acute hypoxic respiratory failure Inferior STEMI Paroxysmal atrial fibrillation, on anticoagulation with Xarelto COPD Hypertension Diabetes mellitus Obstructive sleep apnea PLAN: -Continue Heparin drip -Continue amiodarone 20 mg daily, aspirin 81 mg daily atorvastatin 80 mg nightly, metoprolol succinate -Patient was taking lisinopril on an outpatient basis. Resume lisinopril when blood pressure able to tolerate. -Plan for potential cardiac catheterization tomorrow, if patient agreeable with plan. Will make NPO at midnight. -Further recommendations pending patient's course Nurse practitioner note has been reviewed by physician. Signing provider agrees with the documented findings, assessment, and plan of care. Objective - Vital Signs Vital signs: Vital Signs Temp 98.0 F 07/03/20 04:00 Pulse 60 07/03/20 04:00 Resp 20 07/03/20 04:00 BP 128/75 07/03/20 04:00 Pulse Ox 90 L 07/03/20 04:00 Intake & Output 07/02/20 07/02/20 07/03/20 06:59 18:59 06:59 Intake Total 74.007 Output Total 500 Balance -425.993 Weight 96.2 kg Intake: Intake, IV Titration 74.007 Amount Heparin Sod,Pork in 0.45% 74.007 NaCl 25,000 unit In 0.45 % NaCl 1 250ml.bag @ 10. 45 UNITS/KG/HR 10.001 mls /hr IV .Q24H [facility] Rx#: [id number] Output: Urine 500 Other: Voiding Method Urinal Urinal Urinal External Catheter # Voids 4 4 - Labs CBC & Chem 7: 07/03/20 11:08 07/03/20 11:08 Labs: Abnormal Lab Results - Last 24 Hours (Table) 07/02/20 07/02/20 07/02/20 Range/Units 06:55 07:11 07:11 WBC (3.8-10.6) k/uL RBC (4.30-5.90) m/uL Hgb (13.0-17.5) gm/dL Hct (39.0-53.0) % Neutrophils # (1.3-7.7) k/uL Lymphocytes # (1.0-4.8) k/uL APTT (22.0-30.0) sec D-Dimer 2.35 H (<0.60) mg/L FEU POC Glucose (mg/dL) 184 H (75-99) mg/dL Lactate Dehydrogenase 517 H (120-246) U/L Troponin I (0.000-0.034) ng/mL C-Reactive Protein 9.2 H (0.0-0.8) mg/dL 07/02/20 07/02/20 07/02/20 Range/Units 11:36 14:23 16:37 WBC 12.9 H (3.8-10.6) k/uL RBC 3.98 L (4.30-5.90) m/uL Hgb 12.9 L (13.0-17.5) gm/dL Hct 36.5 L (39.0-53.0) % Neutrophils # 12.0 H (1.3-7.7) k/uL Lymphocytes # 0.3 L (1.0-4.8) k/uL APTT (22.0-30.0) sec D-Dimer (<0.60) mg/L FEU POC Glucose (mg/dL) 233 H 279 H (75-99) mg/dL Lactate Dehydrogenase (120-246) U/L Troponin I (0.000-0.034) ng/mL C-Reactive Protein (0.0-0.8) mg/dL 07/02/20 07/02/20 07/02/20 Range/Units 17:42 20:12 20:28 WBC (3.8-10.6) k/uL RBC (4.30-5.90) m/uL Hgb (13.0-17.5) gm/dL Hct (39.0-53.0) % Neutrophils # (1.3-7.7) k/uL Lymphocytes # (1.0-4.8) k/uL APTT 31.7 H (22.0-30.0) sec D-Dimer (<0.60) mg/L FEU POC Glucose (mg/dL) 244 H (75-99) mg/dL Lactate Dehydrogenase (120-246) U/L Troponin I 0.097 H* (0.000-0.034) ng/mL C-Reactive Protein (0.0-0.8) mg/dL 07/02/20 07/03/20 07/03/20 Range/Units 20:28 03:49 06:03 WBC (3.8-10.6) k/uL RBC (4.30-5.90) m/uL Hgb (13.0-17.5) gm/dL Hct (39.0-53.0) % Neutrophils # (1.3-7.7) k/uL Lymphocytes # (1.0-4.8) k/uL APTT 44.3 H (22.0-30.0) sec D-Dimer (<0.60) mg/L FEU POC Glucose (mg/dL) 189 H (75-99) mg/dL Lactate Dehydrogenase (120-246) U/L Troponin I 1.290 H* (0.000-0.034) ng/mL C-Reactive Protein (0.0-0.8) mg/dL Microbiology - Last 24 Hours (Table) 06/30/20 15:00 Blood Culture - Preliminary Blood No Growth after 48 hours 06/30/20 15:15 Blood Culture - Preliminary Blood No Growth after 48 hours 06/30/20 10:25 Blood Culture - Preliminary Blood No Growth after 48 hours 06/30/20 10:35 Blood Culture - Preliminary Blood No Growth after 48 hours
[2020-07-03] MEDS ORDERED: HALOPERIDOL LACTATE 5 MG/ML 1 ML VIAL IM PRN (15:16)
[2020-07-03] MEDS: HALOPERIDOL LACTATE 5 MG/ML 1 ML VIAL IM PRN ×2 (15:41→20:47)
[2020-07-03] MEDS: HEPARIN SOD,PORK IN 0.45% NACL 25,000 UNIT in 0.45% NACL 1 250ML.BAG IV SCH (15:43)
--- NOTE | 2020-07-03 15:49 | P.PN ---
Subjective Progress Note Date: 07/03/20 This is an 85-year-old gentleman admitted with: Pneumonia, maintained on Colace cocktail. Remdesevir discontinued as per ID with TOCI being considered. Denies chest pain, palpitations but complaining of some shortness of breath. Currently maintaining O2 sats in the 90s on 15 L high flow nasal cannula. Chest x-ray reporting diffuse peripheral lung infiltrates compatible with atypical pneumonia. D-dimer 2.35, LDH, CRP improving. Pro-calcitonin 0.24. Later in the afternoon patient complained of substernal nonradiating chest pain, stat EKG completed reporting ST elevation in inferior leads, troponin less than 0.012, systolic blood pressure ranging 90s to 120s, with stat cardiology consult initiated. Repeat chest x-ray suggestive of worsening patchy bilateral infiltrates in the mid and lower lung lopez. 07/03/2020 maintained on nitroglycerin drip. Echo pending. Troponins less than 0.012, 0.097, 1.290. O2 sats of worsened, 85-88% on nonrebreather. Tachypneic. Restless, indecisive regarding cardiac cath. Creatinine 0.88. Denies chest pain, chest pressure. Reports short of breath. Afebrile, WBC trending down. Objective - Vital Signs Vital signs: Vital Signs Temp 98.2 F 07/03/20 12:00 Pulse 71 07/03/20 12:00 Resp 28 H 07/03/20 12:00 BP 136/75 07/03/20 12:00 Pulse Ox 88 L 07/03/20 12:00 Intake & Output 07/02/20 07/03/20 07/03/20 18:59 06:59 18:59 Intake Total 74.007 0 Output Total 500 350 Balance -425.993 -350 Weight 96.2 kg Intake: Intake, IV Titration 74.007 Amount Heparin Sod,Pork in 0.45% 74.007 NaCl 25,000 unit In 0.45 % NaCl 1 250ml.bag @ 10. 45 UNITS/KG/HR 10.001 mls /hr IV .Q24H [facility] Rx#: [id number] Oral 0 Output: Urine 500 350 Other: Voiding Method Urinal Urinal External Catheter External Catheter # Voids 4 - Exam - Exam General:Sitting up in bed, on NRB. Vitals reviewed Lungs: increased respiratory effort, tachypneic, no wheezes, bibasilar crackles CV: Regular rate and rhythm, no murmur. Peripheral pulses 2+ Abdomen: soft, nondistended, no organomegaly. Positive bowel sounds Skin: warm and dry. - Labs CBC & Chem 7: 07/03/20 11:08 07/03/20 11:08 Labs: Abnormal Lab Results - Last 24 Hours (Table) 07/02/20 07/02/20 07/02/20 Range/Units 16:37 17:42 20:12 WBC (3.8-10.6) k/uL RBC (4.30-5.90) m/uL Hgb (13.0-17.5) gm/dL Hct (39.0-53.0) % APTT (22.0-30.0) sec Sodium (137-145) mmol/L BUN (9-20) mg/dL Glucose (74-99) mg/dL POC Glucose (mg/dL) 279 H 244 H (75-99) mg/dL Calcium (8.4-10.2) mg/dL Troponin I 0.097 H* (0.000-0.034) ng/mL 07/02/20 07/02/20 07/03/20 Range/Units 20:28 20:28 03:49 WBC (3.8-10.6) k/uL RBC (4.30-5.90) m/uL Hgb (13.0-17.5) gm/dL Hct (39.0-53.0) % APTT 31.7 H 44.3 H (22.0-30.0) sec Sodium (137-145) mmol/L BUN (9-20) mg/dL Glucose (74-99) mg/dL POC Glucose (mg/dL) (75-99) mg/dL Calcium (8.4-10.2) mg/dL Troponin I 1.290 H* (0.000-0.034) ng/mL 07/03/20 07/03/20 07/03/20 Range/Units 06:03 11:08 11:08 WBC 11.6 H (3.8-10.6) k/uL RBC 3.82 L (4.30-5.90) m/uL Hgb 12.6 L (13.0-17.5) gm/dL Hct 35.4 L (39.0-53.0) % APTT (22.0-30.0) sec Sodium 135 L (137-145) mmol/L BUN 33 H (9-20) mg/dL Glucose 228 H (74-99) mg/dL POC Glucose (mg/dL) 189 H (75-99) mg/dL Calcium 8.1 L (8.4-10.2) mg/dL Troponin I (0.000-0.034) ng/mL 07/03/20 Range/Units 11:53 WBC (3.8-10.6) k/uL RBC (4.30-5.90) m/uL Hgb (13.0-17.5) gm/dL Hct (39.0-53.0) % APTT (22.0-30.0) sec Sodium (137-145) mmol/L BUN (9-20) mg/dL Glucose (74-99) mg/dL POC Glucose (mg/dL) 227 H (75-99) mg/dL Calcium (8.4-10.2) mg/dL Troponin I (0.000-0.034) ng/mL Microbiology - Last 24 Hours (Table) 06/30/20 10:25 Blood Culture - Preliminary Blood No Growth after 72 hours 06/30/20 10:35 Blood Culture - Preliminary Blood No Growth after 72 hours 06/30/20 15:00 Blood Culture - Preliminary Blood No Growth after 48 hours 06/30/20 15:15 Blood Culture - Preliminary Blood No Growth after 48 hours Assessment and Plan Assessment: Acute Covid-19 pneumonia Acute hypoxic respiratory failure secondary to the above Acute chest pain, acute inferior STEMI, patient refusing cardiac catheterization Chronic atrial fibrillation History of cardiac ablation COPD Obstructive sleep apnea, maintained on CPAP Plan: Continue on current medication regime ,monitoring and symptomatic treatment. Ativan IVP ordered for anxiety. Currently maximizing medical t herapy.cardiology to rediscuss cardiac catheterization with both family and patient . Anticoagulated on heparin drip. Echo pending. Continue on Covid regimen. Prognosis guarded given multiple complex medical issues. The impression and plan of care has been dictated as directed. : I performed a history and examination of this patient, discussed the same with the dictator. I agree with the dictator's note ,documented as a scribe. Any additional findings or plans will be noted.
--- NOTE | 2020-07-03 16:39 | P.PN ---
Subjective Progress Note Date: 07/03/20 Principal diagnosis: Shortness of breath, chest pain. 85-year-old male, with a history of COPD, diabetes, and atrial fibrillation, who presents to the emergency department via EMS, with complaints of increasing shortness of breath for 2 days or so prior to admission. The patient apparently tested positive for COVID 3 days ago. The patient also complains of intermittent fevers, shortness of breath, muscle aches, joint aches, decreased appetite, and generally just not feeling well with significant fatigue. He apparently could not take a deep breath and for that reason asked to be evaluated. White count 4.6, he will 12.3, hematocrit 35.9, platelet count 161,000. PT 12.1, INR 1.2, and PTT 32.0. D-dimer is 1.59. Sodium 132, potassium 3.5, chlorides 101, CO2 24, anion gap 7, BUN 21, creatinine 1.05. LDH was 922, and C-reactive protein is 260. Pro-calcitonin level is 0.24. Chest x-ray showed bilateral infiltrates, consistent with COVID 19 pneumonia. The patient was initially on 5 L nasal cannula, but is now on 10 L high flow nasal cannula. Patient was reevaluated today on 07/02/2020, patient was seen by Dr. Silveira on consultation yesterday for his pneumonia, patient was started on REM by infectious disease. He is also getting the Covid 19 cocktail Decadron vitamin C vitamin D and zinc. Patient is maintained on antegrade ablation therapy for his chronic atrial fibrillation. As I walked in to see the patient, he was complaining of severe substernal chest discomfort. Patient had the pain for about 20 minutes before I saw him. A stat EKG was done, showed slight elevation of the ST segments in the inferior leads, his troponin was ordered. Patient was given nitroglycerin. And I recommended a stat cardiology consultation on this patient. I also recommended a follow-up chest x-ray it showed worsening patchy bilateral infiltrates involving both lungs patient is on high flow oxygen at 15 L, and his O2 saturation is ranging between 86-90%. May have to consider BiPAP if his oxidation does not improve. And again I have recommended a stat cardi ology evaluation for his chest pain. D-dimer is 2.35. His LDH is 517 slightly better compared to yesterday C-reactive protein is significantly improved compared to yesterday, 9.2. Pro-calcitonin is 0.24, slightly elevated. Blood cultures have been negative since admission. Progress note dated 07/03/2020. 85-year-old male with a history of COPD, diabetes, and atrial fibrillation, who was admitted with a diagnosis of acute hypoxemic respiratory failure secondary to COVID 19 pneumonitis. More recently, the patient was thought to have a myocardial infarction. He did have some elevation of his ST segments. He was not thought to be a good candidate for cardiac catheterization. Also, his oxygenation is worsened. He is currently on a nonrebreather mask, along with 15 L high flow nasal cannula. I was able to speak to his nephew, Alirio, who is one of our ICU nurses. He was given a call his father, who is Jason's brother. Anyway, at this point, were distant holding pattern. I suspect, they may make him comfort measures, but I'm not sure that. White count 11.6, hemoglobin 12.6, hematocrit 35.4, and platelet count 261,000. Sodium 135, potassium 3.6, chlorides 101, CO2 25, anion gap 9, BUN 33, and creatinine 0.88. Troponin is 1.290. Objective - Vital Signs Vital signs: Vital Signs Temp 97.7 F 07/03/20 15:49 Pulse 74 07/03/20 15:49 Resp 30 H 07/03/20 15:49 BP 154/88 07/03/20 15:49 Pulse Ox 89 L 07/03/20 15:49 Intake & Output 07/02/20 07/03/20 07/03/20 18:59 06:59 18:59 Intake Total 74.007 175.993 Output Total 500 350 Balance -425.993 -174.007 Weight 96.2 kg Intake: Intake, IV Titration 74.007 175.993 Amount Heparin Sod,Pork in 0.45% 74.007 175.993 NaCl 25,000 unit In 0.45 % NaCl 1 250ml.bag @ 10. 45 UNITS/KG/HR 10.001 mls /hr IV .Q24H [facility] Rx#: [id number] Oral 0 Output: Urine 500 350 Other: Voiding Method Urinal Urinal External Catheter External Catheter # Voids 4 - Exam Confused and lethargic, currently on a nonrebreather mask, 15 L high flow nasal oxygen. HEENT examination is grossly unremarkable. Neck supple. Full range of motion. No adenopathy thyromegaly or neck vein distention. Cardiovascular examination reveals regular rhythm rate. S1-S2 normal. No S3 or S4. No discernible murmur noted. Heart rate 74 bpm. Lungs reveal diffuse coarse rhonchi and crackles. Breath sounds equal. No wheezes.. Abdomen soft bowel sounds are heard. No masses or tenderness. Extremities are intact. No cyanosis clubbing or edema. Skin is without rash or lesion. Neurologic examination is difficult to assess given his current neurologic status. - Labs CBC & Chem 7: 07/03/20 11:08 07/03/20 11:08 Labs: Abnormal Lab Results - Last 24 Hours (Table) 07/02/20 07/02/20 07/02/20 Range/Units 16:37 17:42 20:12 WBC (3.8-10.6) k/uL RBC (4.30-5.90) m/uL Hgb (13.0-17.5) gm/dL Hct (39.0-53.0) % APTT (22.0-30.0) sec Sodium (137-145) mmol/L BUN (9-20) mg/dL Glucose (74-99) mg/dL POC Glucose (mg/dL) 279 H 244 H (75-99) mg/dL Calcium (8.4-10.2) mg/dL Troponin I 0.097 H* (0.000-0.034) ng/mL 07/02/20 07/02/20 07/03/20 Range/Units 20:28 20:28 03:49 WBC (3.8-10.6) k/uL RBC (4.30-5.90) m/uL Hgb (13.0-17.5) gm/dL Hct (39.0-53.0) % APTT 31.7 H 44.3 H (22.0-30.0) sec Sodium (137-145) mmol/L BUN (9-20) mg/dL Glucose (74-99) mg/dL POC Glucose (mg/dL) (75-99) mg/dL Calcium (8.4-10.2) mg/dL Troponin I 1.290 H* (0.000-0.034) ng/mL 07/03/20 07/03/20 07/03/20 Range/Units 06:03 11:08 11:08 WBC 11.6 H (3.8-10.6) k/uL RBC 3.82 L (4.30-5.90) m/uL Hgb 12.6 L (13.0-17.5) gm/dL Hct 35.4 L (39.0-53.0) % APTT (22.0-30.0) sec Sodium 135 L (137-145) mmol/L BUN 33 H (9-20) mg/dL Glucose 228 H (74-99) mg/dL POC Glucose (mg/dL) 189 H (75-99) mg/dL Calcium 8.1 L (8.4-10.2) mg/dL Troponin I (0.000-0.034) ng/mL 07/03/20 Range/Units 11:53 WBC (3.8-10.6) k/uL RBC (4.30-5.90) m/uL Hgb (13.0-17.5) gm/dL Hct (39.0-53.0) % APTT (22.0-30.0) sec Sodium (137-145) mmol/L BUN (9-20) mg/dL Glucose (74-99) mg/dL POC Glucose (mg/dL) 227 H (75-99) mg/dL Calcium (8.4-10.2) mg/dL Troponin I (0.000-0.034) ng/mL Microbiology - Last 24 Hours (Table) 06/30/20 10:25 Blood Culture - Preliminary Blood No Growth after 72 hours 06/30/20 10:35 Blood Culture - Preliminary Blood No Growth after 72 hours 06/30/20 15:00 Blood Culture - Preliminary Blood No Growth after 48 hours 06/30/20 15:15 Blood Culture - Preliminary Blood No Growth after 48 hours Assessment and Plan Assessment: Acute hypoxemic respiratory failure secondary to COVID 19 pneumonitis/pneumonia. Rule out ST segment elevation myocardial infarction. History of hyperlipidemia. History of hypertension. History of diabetes mellitus. History of hypothyroidism. History of atrial fibrillation. History of COPD/asthma. History of CVA. History of glaucoma. History of sleep apnea syndrome, currently on CPAP. History of cardiac ablation. History of DJD/osteoarthritis. Plan: Plan dated 06/29/2020. The patient was started on REM by infectious diseases. The patient will also get vitamin C, vitamin D3, and zinc. In addition, the patient should get Decadron, 6 mg orally every day. The patient's already on a factor X a inhib itor, so Lovenox will not have to be given. I did ask the patient while in bed to move about, going to his right side, left side, supine, and even proning himself if possible. We will continue to follow. Prognosis is guarded. We did speak to his nephew, who is a nurse in the intensive care unit. Plan dated 07/03/2020. The patient was seen by my partner yesterday. Since that time, his mental status is significantly declined. He is very confused and disoriented. Very lethargic and sleepy. The patient is currently on vitamin C, vitamin D3, and zinc although, I'm not sure he can take anything by mouth. In addition, he is getting Decadron 6 mg, and because he is on a factor X a inhibitor, he does not need Lovenox. The patient will get Haldol moving forward for agitation. In addition, I was going to do a computed tomography scan of the brain given his change in mental status but I'm not sure he'll be able to lie flat. I do not think a cardiac catheterization at this time would be a good thing. He probably would not do well with it. His nephew is going to talk to his father who is the patient's brother. Hopefully we'll be able to better define the patient's wishes. Time with Patient: Less than 30
[2020-07-03 17:07] LABS: Glucose,Whole Blood 269 mg/dL (75-99)
[2020-07-03] MEDS: metFORMIN 500 MG TAB PO SCH (17:42)
[2020-07-03] MEDS: HYDROmorphone 1 MG/ML 1 ML SYRINGE IVP PRN ×2 (18:10→21:13)
[2020-07-03 19:51] LABS: Glucose,Whole Blood 257 mg/dL (75-99)
[2020-07-03] MEDS: ATORVASTATIN 80 MG TAB PO SCH (20:48)
[2020-07-03] MEDS: LATANOPROST 0.005% OPHTH DROPS 2.5 ML BTL LEFT EYE SCH (22:20)
[2020-07-03] MEDS: NITROGLYCERIN-D5W PMX 50 MG in DEXTROSE/WATER 1 250ML.BAG IV SCH (22:29)
[2020-07-04] MEDS: HYDROmorphone 1 MG/ML 1 ML SYRINGE IVP PRN ×2 (01:04→09:41)
[2020-07-04] MEDS: HALOPERIDOL LACTATE 5 MG/ML 1 ML VIAL IM PRN ×2 (01:06→11:35)
[2020-07-04] MEDS: LORazepam 2 MG/ML INJ IV PRN ×3 (03:13→14:34)
[2020-07-04] MEDS: LEVOTHYROXINE 75 MCG TAB PO SCH (05:02)
[2020-07-04 06:05] LABS: Glucose,Whole Blood 201 mg/dL (75-99)
[2020-07-04] MEDS: INSULIN ASPART (NovoLOG) 100 UNIT/ML VIAL SQ SCH ×3 (08:53→18:39)
[2020-07-04] MEDS: SYMBICORT 80-4.5 MCG INHALER INHALATION SCH ×2 (09:09→20:53)
[2020-07-04] MEDS: AMIODARONE 200 MG TAB PO SCH (10:48)
[2020-07-04] MEDS: ASCORBIC ACID 500 MG TAB PO SCH (10:48)
[2020-07-04] MEDS: ASPIRIN 81 MG PO SCH (10:48)
[2020-07-04] MEDS: CHOLECALCIFEROL 25 MCG (1000 IU) TABLET PO SCH (10:48)
[2020-07-04] MEDS: LINAGLIPTIN 5 MG TABLET PO SCH (10:49)
[2020-07-04] MEDS: MONTELUKAST 10 MG TAB PO SCH (10:49)
[2020-07-04] MEDS: dexAMETHasone 2 MG TAB PO SCH (10:49)
[2020-07-04] MEDS: LORATADINE 10 MG TAB PO SCH (10:49)
[2020-07-04] MEDS: METOPROLOL SUCCINATE (ER) 50 MG TAB.ER.24H PO SCH (10:49)
[2020-07-04] MEDS: MULTIVITAMINS, THERA 1 EACH TAB PO SCH (10:49)
[2020-07-04] MEDS: [UNRECOGNIZED DRUG - OTHER] PO SCH (10:50)
[2020-07-04] MEDS: TIMOLOL 0.5% OPHTH DROPS 5 ML BTL BOTH EYES SCH (10:50)
[2020-07-04] MEDS: FISH OIL PO SCH (10:50)
[2020-07-04] MEDS: ZINC SULFATE 220 MG CAP PO SCH (10:50)
[2020-07-04] MEDS: PANTOPRAZOLE 40 MG TABLET PO SCH (10:50)
[2020-07-04] MEDS ORDERED: CLOPIDOGREL 75 MG TAB PO SCH (12:15)
[2020-07-04] MEDS ORDERED: SCOPOLAMINE 1.5MG/72HR PATCH TRANSDERM SCH (12:15)
[2020-07-04] MEDS ORDERED: MORPHINE SULFATE (100 MG/2 ML) 100 MG in SODIUM CHLORIDE 0.9% 100 ML IV SCH (12:30)
[2020-07-04] MEDS: MORPHINE SULFATE 2 MG/ML SYRINGE IV PRN ×5 (13:03→18:57)
--- NOTE | 2020-07-04 13:56 | P.PN ---
Subjective This is a 85-year-old male with a past medical history significant for paroxysmal atrial fibrillation, obstructive sleep apnea, COPD, hypertension, and diabetes mellitus. Patient follows in the office with Dr. Gomez. We have been asked to see the patient in consultation for chest pain. Patient is admitted to the hospital on 06/30/20 secondary to Covid-19. Current home cardiac medications include Zocor 20 mg daily, Xarelto 20 mg daily, metoprolol succinate 50 mg twice a day, lisinopril-hydrochlorothiazide 20-12.5mg daily, amiodarone 200 mg daily. On 07/02/20: Patient began having chest pain this afternoon. An EKG was completed revealing sinus mechanism with ST elevation in inferior leads. A STAT cardiology consult was initiated. Patient continued to report chest discomfort at the time of examination. He denied radiation of the pain, nausea or vomiting. He was on a nonrebreather. Chest xray patchy bilateral infiltrates. Recommendations for cardiac catheterization was discussed with patient. Patient states he did not want any invasive procedures to be performed. Patient is currently a DNR. The risk of not having cardiac cath including was discussed with patient. Patient stated "That is fine. I understand. If it's my time, its my time. I am ready to go". Patient in agreement to be treated medically with medications and keep him as comfortable as possible. Patient started on heparin drip, given 20mg IV Lasix, metoprolol succinate 50mg BID, Lipitor increased to 80mg daily, Aspirin 81mg daily. Dilaudid ordered per [facility] as well. Patient will be placed on nitro drip for comfort and transferred to the selective care unit. 07/03/2020: Patient seen and examined at bedside. Patient is not clear on if he wants medical management vs cardiac catheterization. Recommendations for cardiac catheterization was discussed again with the patient. Patient's family members were contacted with patient's permission, with no response. Patient appears lethargic. Keeps stating "whatever you guys want to do". Patient doesn't appear to understand the procedure with cardiac catheterization. BP 136/74, HR 65, tachypneic 30s afebrile, 82% on non rebreather. Spoke with + nurse that states she's also been trying to contact family members. Troponin 0.09--> 1.29. Laboratory data reviewed. He'll function stable serum creatinine 0.88 Echocardiogram reviewed with left ventricular systolic function is normal with EF between 5560 percent, LA is mildly dilated, mild aortic stenosis, mean gradi ent of 18mmHg, mild MR, mild TR, mild pulmonary hypertension. 07/04/2020: Patient seen at bedside. BP 122/58 HR 60s, SpO2 80% on non-rebreather. Patient appears declining compared to yesterday. Per nursing patient has become comfort care and Family Meeting will be occurring this afternoon. PHYSICAL EXAM: Thorough physical exam not completed secondary to limited evaluation/examination due to Covid19 ASSESSMENT: Covid 19 Acute hypoxic respiratory failure Inferior STEMI Paroxysmal atrial fibrillation, on anticoagulation with Xarelto COPD Hypertension Diabetes mellitus Obstructive sleep apnea PLAN: -We will not being a cardiac catheterization at this time. Patient has been made comfort care -We will sign off at this time. Please reach out for any further questions or concerns. Nurse practitioner note has been reviewed by physician. Signing provider agrees with the documented findings, assessment, and plan of care. Objective - Vital Signs Vital signs: Vital Signs Temp 98.0 F 07/04/20 03:32 Pulse 66 07/04/20 03:32 Resp 26 H 07/04/20 03:32 BP 122/68 07/04/20 03:32 Pulse Ox 80 L 07/04/20 03:32 Intake & Output 07/03/20 07/04/20 07/04/20 18:59 06:59 18:59 Intake Total 275.993 160.913 Output Total 700 525 Balance -424.007 -364.087 Weight 89.5 kg Intake: Intake, IV Titration 175.993 160.913 Amount Heparin Sod,Pork in 0.45% 175.993 160.913 NaCl 25,000 unit In 0.45 % NaCl 1 250ml.bag @ 10. 45 UNITS/KG/HR 10.001 mls /hr IV .Q24H [facility] Rx#: [id number] Oral 100 Output: Urine 700 525 Other: Voiding Method External Catheter External Catheter - Labs CBC & Chem 7: 07/03/20 11:08 07/03/20 11:08 Labs: Abnormal Lab Results - Last 24 Hours (Table) 07/03/20 07/03/20 07/03/20 Range/Units 11:08 11:08 11:53 WBC 11.6 H (3.8-10.6) k/uL RBC 3.82 L (4.30-5.90) m/uL Hgb 12.6 L (13.0-17.5) gm/dL Hct 35.4 L (39.0-53.0) % APTT (22.0-30.0) sec Sodium 135 L (137-145) mmol/L BUN 33 H (9-20) mg/dL Glucose 228 H (74-99) mg/dL POC Glucose (mg/dL) 227 H (75-99) mg/dL Calcium 8.1 L (8.4-10.2) mg/dL 07/03/20 07/03/20 07/04/20 Range/Units 16:47 19:48 03:30 WBC (3.8-10.6) k/uL RBC (4.30-5.90) m/uL Hgb (13.0-17.5) gm/dL Hct (39.0-53.0) % APTT 38.7 H (22.0-30.0) sec Sodium (137-145) mmol/L BUN (9-20) mg/dL Glucose (74-99) mg/dL POC Glucose (mg/dL) 269 H 257 H (75-99) mg/dL Calcium (8.4-10.2) mg/dL 07/04/20 Range/Units 06:02 WBC (3.8-10.6) k/uL RBC (4.30-5.90) m/uL Hgb (13.0-17.5) gm/dL Hct (39.0-53.0) % APTT (22.0-30.0) sec Sodium (137-145) mmol/L BUN (9-20) mg/dL Glucose (74-99) mg/dL POC Glucose (mg/dL) 201 H (75-99) mg/dL Calcium (8.4-10.2) mg/dL Microbiology - Last 24 Hours (Table) 06/30/20 15:15 Blood Culture - Preliminary Blood No Growth after 72 hours 06/30/20 15:00 Blood Culture - Preliminary Blood No Growth after 72 hours 06/30/20 10:25 Blood Culture - Preliminary Blood No Growth after 72 hours 06/30/20 10:35 Blood Culture - Preliminary Blood No Growth after 72 hours
[2020-07-04] MEDS: HEPARIN SOD,PORK IN 0.45% NACL 25,000 UNIT in 0.45% NACL 1 250ML.BAG IV SCH (14:25)
--- NOTE | 2020-07-04 14:41 | P.PN ---
Subjective Progress Note Date: 07/04/20 Principal diagnosis: Shortness of breath, chest pain. 85-year-old male, with a history of COPD, diabetes, and atrial fibrillation, who presents to the emergency department via EMS, with complaints of increasing shortness of breath for 2 days or so prior to admission. The patient apparently tested positive for COVID 3 days ago. The patient also complains of intermittent fevers, shortness of breath, muscle aches, joint aches, decreased appetite, and generally just not feeling well with significant fatigue. He apparently could not take a deep breath and for that reason asked to be evaluated. White count 4.6, he will 12.3, hematocrit 35.9, platelet count 161,000. PT 12.1, INR 1.2, and PTT 32.0. D-dimer is 1.59. Sodium 132, potassium 3.5, chlorides 101, CO2 24, anion gap 7, BUN 21, creatinine 1.05. LDH was 922, and C-reactive protein is 260. Pro-calcitonin level is 0.24. Chest x-ray showed bilateral infiltrates, consistent with COVID 19 pneumonia. The patient was initially on 5 L nasal cannula, but is now on 10 L high flow nasal cannula. Patient was reevaluated today on 07/02/2020, patient was seen by Dr. Silveira on consultation yesterday for his pneumonia, patient was started on REM by infectious disease. He is also getting the Covid 19 cocktail Decadron vitamin C vitamin D and zinc. Patient is maintained on antegrade ablation therapy for his chronic atrial fibrillation. As I walked in to see the patient, he was complaining of severe substernal chest discomfort. Patient had the pain for about 20 minutes before I saw him. A stat EKG was done, showed slight elevation of the ST segments in the inferior leads, his troponin was ordered. Patient was given nitroglycerin. And I recommended a stat cardiology consultation on this patient. I also recommended a follow-up chest x-ray it showed worsening patchy bilateral infiltrates involving both lungs patient is on high flow oxygen at 15 L, and his O2 saturation is ranging between 86-90%. May have to consider BiPAP if his oxidation does not improve. And again I have recommended a stat cardi ology evaluation for his chest pain. D-dimer is 2.35. His LDH is 517 slightly better compared to yesterday C-reactive protein is significantly improved compared to yesterday, 9.2. Pro-calcitonin is 0.24, slightly elevated. Blood cultures have been negative since admission. Progress note dated 07/03/2020. 85-year-old male with a history of COPD, diabetes, and atrial fibrillation, who was admitted with a diagnosis of acute hypoxemic respiratory failure secondary to COVID 19 pneumonitis. More recently, the patient was thought to have a myocardial infarction. He did have some elevation of his ST segments. He was not thought to be a good candidate for cardiac catheterization. Also, his oxygenation is worsened. He is currently on a nonrebreather mask, along with 15 L high flow nasal cannula. I was able to speak to his nephew, Alirio, who is one of our ICU nurses. He was given a call his father, who is Jason's brother. Anyway, at this point, were distant holding pattern. I suspect, they may make him comfort measures, but I'm not sure that. White count 11.6, hemoglobin 12.6, hematocrit 35.4, and platelet count 261,000. Sodium 135, potassium 3.6, chlorides 101, CO2 25, anion gap 9, BUN 33, and creatinine 0.88. Troponin is 1.290. Progress note dated 07/04/2020. 85-year-old male with history of COPD, diabetes, and atrial fibrillation. He was admitted with a diagnosis of acute hypoxemic respiratory failure secondary to Covid 19 pneumonia. The patient was also thought to have an ST segment elevation myocardial infarction. Currently, the patient is doing very poorly. He is on 15 L high flow nasal O2, and a nonrebreather mask. He is a DO NOT INTUBATE/DO NOT RESUSCITATE. I called his nephew, Alirio, who works as she nurse here at this hospital. The patient was made a comfort measures patient today. The patient is doing very poorly. His saturations on the oxygen that he is currently on are only in the mid 70s. He is very restless and agitated. He has terminal agitation in my opinion. Alirio called his father and his cousin Michele, and everyone agreed to make the patient comfort measures. I think this is a right thing to do. There were no new labs today. When I came to see the patient, he was on IV heparin, and IV nitroglycerin. I asked the nurse to turn those things off. Objective - Vital Signs Vital signs: Vital Signs Temp 98 F 07/04/20 08:30 Pulse 76 07/04/20 08:30 Resp 23 07/04/20 08:30 BP 121/66 07/04/20 08:30 Pulse Ox 91 L 07/04/20 08:30 Intake & Output 07/03/20 07/04/20 07/04/20 18:59 06:59 18:59 Intake Total 275.993 160.913 2.04 Output Total 700 525 Balance -424.007 -364.087 2.04 Weight 89.5 kg Intake: Intake, IV Titration 175.993 160.913 2.04 Amount Heparin Sod,Pork in 0.45% 175.993 160.913 NaCl 25,000 unit In 0.45 % NaCl 1 250ml.bag @ 10. 45 UNITS/KG/HR 10.001 mls /hr IV .Q24H [facility] Rx#: [id number] Morphine Sulfate (100 mg/ 2.04 2 ml) 100 mg In Sodium Chloride 0.9% 100 ml @ 1 MG/HR 1.02 mls/hr IV . Q24H [facility] Rx#:[id number] Oral 100 0 Output: Urine 700 525 Other: Voiding Method External Catheter External Catheter # Bowel Movements 0 - Exam The patient has terminal agitation and confusion. He is poorly responsive. Currently on a nonrebreather mask, 15 L high flow nasal oxygen. HEENT examination is grossly unremarkable. Neck supple. Full range of motion. No adenopathy thyromegaly or neck vein distention. Cardiovascular examination reveals regular rhythm rate. S1-S2 normal. No S3 or S4. No discernible murmur noted. Heart rate 76 bpm. Lungs reveal diffuse coarse rhonchi and crackles. Breath sounds equal. No wheezes.. Abdomen soft bowel sounds are heard. No masses or tenderness. Extremities are intact. No cyanosis clubbing or edema. Skin is without rash or lesion. Neurologic examination is difficult to assess given his current neurologic status. - Labs CBC & Chem 7: 07/03/20 11:08 07/03/20 11:08 Labs: Abnormal Lab Results - Last 24 Hours (Table) 07/03/20 07/03/20 07/04/20 Range/Units 16:47 19:48 03:30 APTT 38.7 H (22.0-30.0) sec POC Glucose (mg/dL) 269 H 257 H (75-99) mg/dL 07/04/20 07/04/20 Range/Units 06:02 09:40 APTT 40.2 H (22.0-30.0) sec POC Glucose (mg/dL) 201 H (75-99) mg/dL Microbiology - Last 24 Hours (Table) 06/30/20 10:25 Blood Culture - Preliminary Blood No Growth after 96 hours 06/30/20 10:35 Blood Culture - Preliminary Blood No Growth after 96 hours 06/30/20 15:15 Blood Culture - Preliminary Blood No Growth after 72 hours 06/30/20 15:00 Blood Culture - Preliminary Blood No Growth after 72 hours Assessment and Plan Assessment: Acute hypoxemic respiratory failure secondary to COVID 19 pneumonitis/pneumonia. Rule out ST segment elevation myocardial infarction. History of hyperlipidemia. History of hypertension. History of diabetes mellitus. History of hypothyroidism. History of atrial fibrillation. History of COPD/asthma. History of CVA. History of glaucoma. History of sleep apnea syndrome, currently on CPAP. History of cardiac ablation. History of DJD/osteoarthritis. Plan: Plan dated 06/29/2020. The patient was started on REM by infectious diseases. The patient will also get vitamin C, vitamin D3, and zinc. In addition, the patient should get Decadron, 6 mg orally every day. The patient's already on a factor X a inhibitor, so Lovenox will not have to be given. I did ask the patient while in bed to move about, going to his right side, left side, supine, and even proning himself if possible. We will continue to follow. Prognosis is guarded. We did speak to his nephew, who is a nurse in the intensive care unit. Plan dated 07/03/2020. The patient was seen by my partner yesterday. Since that time, his mental status is significantly declined. He is very confused and disoriented. Very lethargic and sleepy. The patient is currently on vitamin C, vitamin D3, and zinc although, I'm not sure he can take anything by mouth. In addition, he is getting Decadron 6 mg, and because he is on a factor X a inhibitor, he does not need Lovenox. The patient will get Haldol moving forward for agitation. In addition, I was going to do a computed tomography scan of the brain given his c hange in mental status but I'm not sure he'll be able to lie flat. I do not think a cardiac catheterization at this time would be a good thing. He probably would not do well with it. His nephew is going to talk to his father who is the patient's brother. Hopefully we'll be able to better define the patient's wishes. Plan dated 07/04/2020. The patient was made a comfort measures patient today. We'll stop all the unnecessary medications. I already stopped the IV heparin and the IV nitrogly cerin. We'll place him on morphine. We'll DC the nonrebreather mass. We'll keep on the 15 L high flow oxygen. Additional recommendations and suggestions are forthcoming. The patient will receive a scopolamine patch, and IV morphine. Time with Patient: Less than 30
[2020-07-04 14:47] VITALS: BP 168/90; PULSE 82; RESP 28; TEMP 98.1
--- NOTE | 2020-07-04 17:34 | P.PN ---
Subjective Progress Note Date: 07/04/20 This is an 85-year-old gentleman admitted with: Pneumonia, maintained on Colace cocktail. Remdesevir discontinued as per ID with TOCI being considered. Denies chest pain, palpitations but complaining of some shortness of breath. Currently maintaining O2 sats in the 90s on 15 L high flow nasal cannula. Chest x-ray reporting diffuse peripheral lung infiltrates compatible with atypical pneumonia. D-dimer 2.35, LDH, CRP improving. Pro-calcitonin 0.24. Later in the afternoon patient complained of substernal nonradiating chest pain, stat EKG completed reporting ST elevation in inferior leads, troponin less than 0.012, systolic blood pressure ranging 90s to 120s, with stat cardiology consult initiated. Repeat chest x-ray suggestive of worsening patchy bilateral infiltrates in the mid and lower lung lopez. 07/03/2020 maintained on nitroglycerin drip. Echo pending. Troponins less than 0.012, 0.097, 1.290. O2 sats of worsened, 85-88% on nonrebreather. Tachypneic. Restless, indecisive regarding cardiac cath. Creatinine 0.88. Denies chest pain, chest pressure. Reports short of breath. Afebrile, WBC trending down. 07/04/2020 respiratory status worsened, maintaining only 80% during the night on 15 L high flow plus nonrebreather. Today O2 sats further decreased to the mid 70s. Maintained on nitroglycerin and heparin drips. Family decided to make patient comfort care related to his declining condition. Objective - Vital Signs Vital signs: Vital Signs Temp 98.1 F 07/04/20 12:00 Pulse 82 07/04/20 12:00 Resp 28 H 07/04/20 12:00 BP 168/90 07/04/20 12:00 Pulse Ox 75 L 07/04/20 12:00 Intake & Output 07/03/20 07/04/20 07/04/20 18:59 06:59 18:59 Intake Total 275.993 160.913 7.871 Output Total 700 525 Balance -424.007 -364.087 7.871 Weight 89.5 kg Intake: Intake, IV Titration 175.993 160.913 7.871 Amount Heparin Sod,Pork in 0.45% 175.993 160.913 NaCl 25,000 unit In 0.45 % NaCl 1 250ml.bag @ 10. 45 UNITS/KG/HR 10.001 mls /hr IV .Q24H [facility] Rx#: [id number] Morphine Sulfate (100 mg/ 7.871 2 ml) 100 mg In Sodium Chloride 0.9% 100 ml @ 1 MG/HR 1.02 mls/hr IV . Q24H [facility] Rx#:[id number] Oral 100 0 Output: Urine 700 525 Other: Voiding Method External Catheter External Catheter # Bowel Movements 0 - Exam - Exam General:Sitting up in bed, on NRB/15 L high flow nasal cannula. Vitals reviewed Lungs: increased respiratory effort, tachypneic, no wheezes, positive rhonchi, bibasilar crackles CV: Regular rate and rhythm, no murmur. Peripheral pulses 2+ Abdomen: soft, nondistended, no organomegaly. Positive bowel sounds Skin: warm and dry. - Labs CBC & Chem 7: 07/03/20 11:08 07/03/20 11:08 Labs: Abnormal Lab Results - Last 24 Hours (Table) 07/03/20 07/04/20 07/04/20 Range/Units 19:48 03:30 06:02 APTT 38.7 H (22.0-30.0) sec POC Glucose (mg/dL) 257 H 201 H (75-99) mg/dL 07/04/20 Range/Units 09:40 APTT 40.2 H (22.0-30.0) sec POC Glucose (mg/dL) (75-99) mg/dL Microbiology - Last 24 Hours (Table) 06/30/20 10:25 Blood Culture - Preliminary Blood No Growth after 96 hours 06/30/20 10:35 Blood Culture - Preliminary Blood No Growth after 96 hours 06/30/20 15:15 Blood Culture - Preliminary Blood No Growth after 72 hours 06/30/20 15:00 Blood Culture - Preliminary Blood No Growth after 72 hours Assessment and Plan Assessment: Acute Covid-19 pneumonia Acute hypoxic respiratory failure secondary to the above Acute chest pain, acute inferior STEMI, patient refusing cardiac catheterization Chronic atrial fibrillation History of cardiac ablation COPD Obstructive sleep apnea, maintained on CPAP No code, no CPR, no intubation Comfort care Plan: Continue on current medication regime ,monitoring and symptomatic treatment. Comfort care initiated including morphine drip. Titrate to comfort. The impression and plan of care has been dictated as directed. : I performed a history and examination of this patient, discussed the same with the dictator. I agree with the dictator's note ,documented as a scribe. Any additional findings or plans will be noted.
[2020-07-04] MEDS: metFORMIN 500 MG TAB PO SCH (18:39)
--- NOTE | 2020-07-08 15:19 | CDI ---
Documentation Clarification Form Date: 07/08/2020 03:09:10 PM From: Sandhya AvinaTseCONSUELO ceron, CCDS Admit Date: 06/30/2020 10:40:00 AM Patient Name: Jason Stinson Visit Number: [id number] Discharge Date: 07/04/2020 07:50:00 PM ATTENTION: The Clinical Documentation Specialists (CDI) and [facility] Coding Staff appreciate your assistance in clarifying documentation. Please respond to the clarification below the line at the bottom and electronically sign. The CDI & [facility] Coding staff will review the response and follow-up if needed. Please note: Queries are made part of the Legal Health Record. If you have any questions, please contact the author of this message via ITS. Dr. Diego Smith: There is conflicting documentation in the medical record regarding the type of Atrial Fibrillation: Atrial Fibrillation is documented in the 06/30 History & Physical as Paroxysmal Atrial Fibrillation. Atrial Fibrillation is documented in the 07/01 Progress Note & subsequent Progress Notes as Chronic Atrial Fibrillation. History/Risk Factors per the 06/30 H/P Past Medical History: Atrial fibrillation, COPD, DM II, Hyperlipidemia, BPH, RICHARD, GERD, Hypothyroidism, Hypertension, Pneumonia, Glaucoma right eye, CVA/TIA, Former smoker. Clinical Indicators: Presented to the ED on 06/30 with SOB via EMS. Patient tested positive for COVID three days prior to admission. Increased SOB & fever at home, mild diarrhea. ED Clinical Impression: COVID 19 Pneumonia. 06/30 VS: T 98.1, P 69, R 20 (SOB, cough), BP 145/86, PO 91 2Lnc. 06/30 EKG #1: R 65 nsr, Inc RBBB. EKG #2: R 65, nsr, Inc RBBB, ST elevation consider inferior injury or acute infarct. Acute [place]. Treatment 06/30: IV Decadron, po Xarelto, IV Remdesivir, O2 2Lnc - 3Lnc 07/02: Nitro sl, IV Morphine, IV Lasix, IV Heparin, IV Dilaudid, Nitropaste, High flow O2 15Lnc. 07/02 Cardiology Consult: Paroxysmal Atrial Fibrillation on Xarelto. Patient refused cardiac catheterization. Please clarify the type of atrial fibrillation, if known: [ ] Chronic/Permanent [ ] Paroxysmal [ ] Other, please specify [ ] Unable to determine (Template Last Revised: May 2020) ] Paroxysmal MTDD
--- NOTE | 2020-07-29 15:43 | P.DS ---
Providers Date of admission: 06/30/20 10:40 Expected date of discharge: 07/04/20 Attending physician: Diego Smith MD Consults: 06/30/20 14:31 Consult Physician Routine Consulting Provider: Geoffrey Floyd Consult Reason/Comments: Hypoxia and Covid Do you want consulting provider notified?: Yes 07/01/20 15:04 Consult Physician Routine Consulting Provider: Mario Silveira Consult Reason/Comments: COVID Do you want consulting provider notified?: Already Contacted 07/02/20 13:07 Consult Physician Routine Consulting Provider: Jean Pierre Gomez Consult Reason/Comments: chest pain Do you want consulting provider notified?: Yes 07/02/20 13:29 Consult Physician Stat Consulting Provider: Jean Pierre Gomez Consult Reason/Comments: chest pain, acute mi on ekg Do you want consulting provider notified?: Already Contacted Primary care physician: Radha Smith - Discharge Diagnosis(es) (1) Acute hypoxemic respiratory failure due to COVID-19 Status: Acute (2) Chronic atrial fibrillation Status: Acute (3) Pneumonia due to COVID-19 virus Status: Acute Hospital Course: This is an 85-year-old gentleman admitted with: Pneumonia, maintained on COVID cocktail. Remdesevir discontinued as per ID with TOCI being considered. Denies chest pain, palpitations but complaining of some shortness of breath. Currently maintaining O2 sats in the 90s on 15 L high flow nasal cannula. Chest x-ray reporting diffuse peripheral lung infiltrates compatible with atypical pneumonia. D-dimer 2.35, LDH, CRP improving. Pro-calcitonin 0.24. Later in the afternoon patient complained of substernal nonradiating chest pain, stat EKG completed reporting ST elevation in inferior leads, troponin less than 0.012, systolic blood pressure ranging 90s to 120s, with stat cardiology consult initiated. Repeat chest x-ray suggestive of worsening patchy bilateral infiltrates in the mid and lower lung lopez. 07/03/2020 maintained on nitroglycerin drip. Echo pending. Troponins less than 0.012, 0.097, 1.290. O2 sats of worsened, 85-88% on nonrebreather. Tachypneic. Restless, indecisive regarding cardiac cath. Creatinine 0.88. Denies chest pain, chest pressure. Reports short of breath. Afebrile, WBC trending down. 07/04/2020 respiratory status worsened, maintaining only 80% during the night on 15 L high flow plus nonrebreather. Today O2 sats further decreased to the mid 70s. Maintained on nitroglycerin and heparin drips. Family decided to make patient comfort care related to his declining condition. On July 04, pt experienced cardiopulmonary arrest and passed. Plan - Discharge Summary New Discharge Prescriptions: No Action Montelukast [Singulair] 10 mg PO DAILY Fluticasone/Salmeterol [Advair 250-50 Diskus] 1 puff INHALATION RT-BID Rivaroxaban [Xarelto] 20 mg PO AC-SUPPER Omeprazole [PriLOSEC] 20 mg PO DAILY Sildenafil Citrate [Viagra] 100 mg PO DIRECTED PRN PRN Reason: E.D. Simvastatin [Zocor] 20 mg PO HS Travoprost [Travatan Z 0.004%] 1 drop LEFT EYE HS sitaGLIPtin [Januvia] 100 mg PO DAILY metFORMIN HCL [Glucophage] 250 mg PO AC-SUPPER Lisinopril-Hctz 20-12.5 mg [Zestoretic 20-12.5] 1 tab PO DAILY Cetirizine HCl [Zyrtec] 10 mg PO DAILY Levothyroxine Sodium [Synthroid] 75 mcg PO DAILY Amiodarone [Cordarone] 200 mg PO DAILY #90 tab Metoprolol Succinate [Toprol XL] 50 mg PO BID Timolol 0.5% Ophth Gel Forming [Timoptic-Xe] 1 drop BOTH EYES BID Opti-Floride 1 tab PO DAILY Kilauea-Matt(Fish Oil) 1 cap PO DAILY Vitamin D3(Unknown Dose) 1 tab PO DAILY Azithromycin [Zithromax Z-pack (6 tabs)] See Taper PO DAILY Multivitamins, Thera [Multivitamin (formulary)] 1 tab PO DAILY Discharge Medication List Fluticasone/Salmeterol [Advair 250-50 Diskus] 1 puff INHALATION RT-BID 03/31/15 [History] Montelukast [Singulair] 10 mg PO DAILY 03/31/15 [History] Omeprazole [PriLOSEC] 20 mg PO DAILY 03/31/15 [History] Rivaroxaban [Xarelto] 20 mg PO AC-SUPPER 03/31/15 [History] Sildenafil Citrate [Viagra] 100 mg PO DIRECTED PRN 03/01/18 [History] Simvastatin [Zocor] 20 mg PO HS 03/01/18 [History] Travoprost [Travatan Z 0.004%] 1 drop LEFT EYE HS 03/03/18 [History] Cetirizine HCl [Zyrtec] 10 mg PO DAILY 06/01/18 [History] Lisinopril-Hctz 20-12.5 mg [Zestoretic 20-12.5] 1 tab PO DAILY 06/01/18 [History] metFORMIN HCL [Glucophage] 250 mg PO AC-SUPPER 06/01/18 [History] sitaGLIPtin [Januvia] 100 mg PO DAILY 06/01/18 [History] Levothyroxine Sodium [Synthroid] 75 mcg PO DAILY 06/14/18 [History] Amiodarone [Cordarone] 200 mg PO DAILY #90 tab 06/16/18 [Rx] Metoprolol Succinate [Toprol XL] 50 mg PO BID 04/17/20 [History] Timolol 0.5% Ophth Gel Forming [Timoptic-Xe] 1 drop BOTH EYES BID 04/17/20 [History] Azithromycin [Zithromax Z-pack (6 tabs)] See Taper PO DAILY 06/30/20 [History] Multivitamins, Thera [Multivitamin (formulary)] 1 tab PO DAILY 06/30/20 [History] Kilauea-Matt(Fish Oil) 1 cap PO DAILY 06/30/20 [History] Opti-Floride 1 tab PO DAILY 06/30/20 [History] Vitamin D3(Unknown Dose) 1 tab PO DAILY 06/30/20 [History] Follow up Appointment(s)/Referral(s): Radha Smith DO [Primary Care Provider] - 1-2 days Discharge Disposition: - Preliminary Cause of Preliminary Cause of : COVID
== END 2020-07-04 19:50 | disposition expired | DRG 177 ==
LOC: EC 08:13 → 4SSUR 10:40 → 3SCARD 07-02 18:33
PROVIDERS: ADMIT Family Medicine; ATTEND Family Medicine
PROC: XW033E5 Introduction of Remdesivir Anti-infective into Peripheral Vein, Percutaneous Approach, New Technology Group 5 (ICD-10-PCS; principal; 2020-06-30)
PROC: 5A0945A Assistance with Respiratory Ventilation, 24-96 Consecutive Hours, High Flow/Velocity Cannula (ICD-10-PCS; 2020-07-01)
DX: U07.1 COVID-19 (principal); J12.82 Pneumonia due to coronavirus disease 2019; J96.01 Acute respiratory failure with hypoxia; I21.19 ST elevation (STEMI) myocardial infarction involving other coronary artery of inferior wall; J44.0 Chronic obstructive pulmonary disease with (acute) lower respiratory infection; I27.20 Pulmonary hypertension, unspecified; E11.39 Type 2 diabetes mellitus with other diabetic ophthalmic complication; D72.810 Lymphocytopenia; I48.0 Paroxysmal atrial fibrillation; Z51.5 Encounter for palliative care; Z66 Do not resuscitate; I11.9 Hypertensive heart disease without heart failure; J32.9 Chronic sinusitis, unspecified; E03.9 Hypothyroidism, unspecified; E78.5 Hyperlipidemia, unspecified; I08.3 Combined rheumatic disorders of mitral, aortic and tricuspid valves; K21.9 Gastro-esophageal reflux disease without esophagitis; H40.9 Unspecified glaucoma; H42 Glaucoma in diseases classified elsewhere; N40.0 Benign prostatic hyperplasia without lower urinary tract symptoms; I69.398 Other sequelae of cerebral infarction; H53.8 Other visual disturbances; G47.33 Obstructive sleep apnea (adult) (pediatric); G89.29 Other chronic pain; M54.5 Low back pain; M19.90 Unspecified osteoarthritis, unspecified site; Z79.51 Long term (current) use of inhaled steroids; Z79.890 Hormone replacement therapy; Z79.84 Long term (current) use of oral hypoglycemic drugs; Z79.01 Long term (current) use of anticoagulants; Z79.899 Other long term (current) drug therapy; Z90.89 Acquired absence of other organs; Z87.19 Personal history of other diseases of the digestive system; Z86.69 Personal history of other diseases of the nervous system and sense organs; Z87.09 Personal history of other diseases of the respiratory system; Z87.39 Personal history of other diseases of the musculoskeletal system and connective tissue; Z98.1 Arthrodesis status; Z98.42 Cataract extraction status, left eye; Z98.41 Cataract extraction status, right eye; Z96.1 Presence of intraocular lens; Z98.52 Vasectomy status; Z87.01 Personal history of pneumonia (recurrent); Z87.891 Personal history of nicotine dependence; Z98.890 Other specified postprocedural states; Z80.9 Family history of malignant neoplasm, unspecified
CPT/HCPCS: 36415; 71045; 80048; 80053; 82728; 83605; 83615; 83735; 84145; 84484; 85025; 85027; 85379; 85610; 85730; 86140; 86850; 86900; 86901; 87040; 93005; 93306; 94640; 94760; 99285